=== PATIENT | male | born 1955 | race Caucasian/White ===

== ENCOUNTER → 2019-10-17 09:04 | Outpatient (BNVA) | payer OTHER, SELFPAY | PROVIDERS: PCP Nurse Practitioner Family; Referring Provider Nurse Practitioner Family; Visit Provider Specialist | DX: M79.661 Pain in right lower leg (principal); R42 Dizziness and giddiness; M79.662 Pain in left lower leg; R20.0 Anesthesia of skin; R29.90 Unspecified symptoms and signs involving the nervous system | CPT/HCPCS: 95909; 99204 ==

== ENCOUNTER 2020-11-17 03:28 | Emergency (ER) | payer OTHER, SELFPAY ==
[2020-11-17 03:33] VITALS: BP 151/88; PULSE 81; RESP 22; TEMP 36.7; O2SAT 97; BMI 35.3
--- NOTE | 2020-11-17 03:39 | ED_ITS ---
HPI - SOB/Dyspnea General: Chief Complaint: Shortness of Breath/Dyspnea Stated Complaint: trouble breathing Time Seen by Provider: 11/17/20 03:36 Source: patient Mode of arrival: ambulatory Limitations: no limitations History of Present Illness: HPI Narrative: 65-year-old male who has a history of CHF states that he has had increased shortness of breath throughout the night. He states that he is continue to have dyspnea here. He denies any worsening improving factors. He denies any chest pain. He denies any recent long trips. Denies any vomiting or diarrhea. Associated symptoms: Deny abdominal pain, chest pain, fever(s), nausea or vomiting Review of Systems Const: Denies: fever(s), chills, body aches or change in appetite Eyes: Denies: blurry vision or eye discomfort ENMT: Denies: throat pain or dental pain Card: Denies: chest pain Resp: Reports: dyspnea GI: Denies: abdominal pain, nausea, vomiting or diarrhea : Denies: dysuria Musc: Denies: neck pain or back pain Skin/Breast: Denies: rash Neuro: Denies: headache(s) Psych: Denies: depression Teo/Lymph: Denies: easy bruising All/Imm: Denies: urticaria PFSH ED PFSH: Family History Father ALS (amyotrophic lateral sclerosis) Brother ALS (amyotrophic lateral sclerosis) Social History Smoking and tobacco status: never smoked Physical Exam Const: COMMON NORMALS: no acute distress, patient oriented x3 and healthy appearing HENMT: COMMON NORMALS: normocephalic and atraumatic HEAD & SCALP: normocephalic and atraumatic Eye: COMMON NORMALS: Equal, round and reactive pupils present and EOMs intact bilaterally PUPIL: Yes Equal, round and reactive pupils present Neck/C-Spine: COMMON NORMALS: full ROM and supple Chest: COMMONS NORMALS: normal inspection of the chest and normal palpation of entire chest wall Resp: COMMON NORMALS: normal respiratory effort, No retractions, No use of accessory muscles and clear to auscultation bilaterally AUSCULTATION: clear to auscultation bilaterally Cardio: COMMON NORMALS: regular rate, regular rhythm and No murmurs present (Cardio) RATE: regular rate RHYTHM: regular rhythm GI: COMMON NORMALS: Normal to inspection, nondistended, normoactive bowel sounds present, Soft to palpation, non-tender and no masses PALPATION: Yes Soft to palpation Extremity: COMMON NORMALS: normal to inspection and full ROM Neuro: COMMON NORMALS: patient oriented x3, moves all extremities and no focal motor deficits Psych: COMMON NORMALS: mental status grossly normal, Normal thought process present and cooperative THOUGHT PROCESS: Normal thought process present Skin: COMMON NORMALS: no rashes or lesions noted and no wounds GENERAL SKIN EXAM: no rashes or lesions noted Course Vital Signs: Vital signs: Vital Signs Temperature 98.1 F 11/17/20 03:33 Pulse Rate 88 11/17/20 05:19 Respiratory Rate 18 11/17/20 05:19 Blood Pressure 142/96 11/17/20 05:19 Pulse Oximetry 93 11/17/20 05:19 MDM - SOB/Dyspnea MDM Narrative: Medical decision making narrative: Turner presents with shortness of breath likely due to some anxiety. He feels much improved here after Ativan. Patient's blood work including D-dimer and BNP and troponin are all normal. His x-ray is normal as well. He feels much improved and does not require any oxygen here. I feel he is stable for discharge and is to follow-up his PCP in 2 to 4 days return to the ER if worsening. He understands and agrees to plan. Lab Data: Labs: Lab Results 11/17/20 11/17/20 11/17/20 Range/Units 03:47 03:47 03:47 WBC 8.7 (4.0-10.0) 10^3/ uL RBC 4.64 (4.1-5.3) 10^6/u L Hgb 14.9 (11.7-16.6) g/dL Hct 44.3 (42.0-52.0) % MCV 95.5 H (80-94) fL MCH 32.1 (28.0-34.0) pg MCHC 33.6 (30.0-36.0) g/dL RDW 11.9 L (12.1-15.1) % Plt Count 242 (130-400) 10^3/c mm MPV 10.3 (7.4-10.4) fL Neut % (Auto) 64.2 % Lymph % (Auto) 26.1 % [place] % (Auto) 6.9 % Eos % (Auto) 1.8 % Baso % (Auto) 0.7 % Neut # (Auto) 5.60 (1.8-7.7) 10^3/u L Lymph # (Auto) 2.3 (0.8-4.8) 10^3/u L [place] # (Auto) 0.6 (0.2-0.9) 10^3/u L Eos # (Auto) 0.2 (0.0-0.8) 10^3/u L Baso # (Auto) 0.1 (0.0-0.1) 10^3/u L Nucleated RBC % (a uto) 0 % Nucleated RBCs # 0.0 /100WBC D-Dimer 0.47 (0-0.59) ug/mIFE U Sodium 137 (136-145) mmol/L Potassium 3.9 (3.5-5.1) mmol/L Chloride 98 (98-107) mmol/L Carbon Dioxide 24 (22-29) mmol/L Anion Gap 18.9 (5-19) BUN 11 (8-23) mg/dL Creatinine 0.9 (0.7-1.2) mg/dL GFR Calculation 84.7 L (90-130) mL/min Glucose 129 H (65-115) mg/dL Calculated Osmolal ity 285 (285-295) mOsm/k g Calcium 9.6 (8.5-10.5) mg/dL Total Bilirubin 0.5 (0.15-1.2) mg/dL AST 24 (0-40) U/L ALT 6 (0-41) U/L Alkaline Phosphata se 120 (40-130) IU/L Troponin T Baselin e (0-15) ng/L NT-Pro-B Natriuret Pep 30 (0-125) pg/mL Total Protein 7.3 (6.6-8.7) g/dL Albumin 4.9 (3.5-5.2) g/dL Globulin 2.4 (1.3-4.6) g/dL 11/17/20 Range/Units 03:47 WBC (4.0-10.0) 10^3/ uL RBC (4.1-5.3) 10^6/u L Hgb (11.7-16.6) g/dL Hct (42.0-52.0) % MCV (80-94) fL MCH (28.0-34.0) pg MCHC (30.0-36.0) g/dL RDW (12.1-15.1) % Plt Count (130-400) 10^3/c mm MPV (7.4-10.4) fL Neut % (Auto) % Lymph % (Auto) % [place] % (Auto) % Eos % (Auto) % Baso % (Auto) % Neut # (Auto) (1.8-7.7) 10^3/u L Lymph # (Auto) (0.8-4.8) 10^3/u L [place] # (Auto) (0.2-0.9) 10^3/u L Eos # (Auto) (0.0-0.8) 10^3/u L Baso # (Auto) (0.0-0.1) 10^3/u L Nucleated RBC % (a uto) % Nucleated RBCs # /100WBC D-Dimer (0-0.59) ug/mIFE U Sodium (136-145) mmol/L Potassium (3.5-5.1) mmol/L Chloride (98-107) mmol/L Carbon Dioxide (22-29) mmol/L Anion Gap (5-19) BUN (8-23) mg/dL Creatinine (0.7-1.2) mg/dL GFR Calculation (90-130) mL/min Glucose (65-115) mg/dL Calculated Osmolal ity (285-295) mOsm/k g Calcium (8.5-10.5) mg/dL Total Bilirubin (0.15-1.2) mg/dL AST (0-40) U/L ALT (0-41) U/L Alkaline Phosphata se (40-130) IU/L Troponin T Baselin e 13 (0-15) ng/L NT-Pro-B Natriuret Pep (0-125) pg/mL Total Protein (6.6-8.7) g/dL Albumin (3.5-5.2) g/dL Globulin (1.3-4.6) g/dL Imaging Data^: CXR: Attestation: I personally reviewed and interpreted this imaging study as follows: My impression: no acute abnormality EKG Data^: EKG 1: Attestation: I personally reviewed and interpreted this EKG as follows: EKG Interpretation Date: 11/17/20 EKG interpretation time: 03:40 Interpretation: Normal sinus rhythm heart rate [address] or T wave normalities QRS 97 QTc 382 Discharge Plan Discharge Patient Disposition: Home Clinical Impression: Shortness of breath Condition: Stable Prescriptions: No Action carbidopa-levodopa 25-100 mg tablet 2 tab PO .HS RF: 0 cholecalciferol (vitamin D3) 2,000 unit tablet 2,000 unit PO DAILY RF: 0 pioglitazone 45 mg tablet 45 mg PO DAILY RF: 0 pregabalin 200 mg capsule 200 mg PO DAILY RF: 0 trazodone 100 mg tablet 100 mg PO DAILY RF: 0 potassium chloride 20 mEq tablet extended release 20 meq PO DAILY RF: 0 omeprazole 20 mg capsule,delayed release(DR/EC) 20 mg PO QID RF: 0 lisinopril 10 mg tablet 15 mg PO DAILY RF: 0 meclizine 25 mg tablet 25 mg PO TID RF: 0 cyanocobalamin (vitamin B-12) 1,000 mcg capsule 1,000 mcg PO DAILY RF: 0 atorvastatin 80 mg tablet 40 mg PO DAILY RF: 0 metformin 1,000 mg tablet 1,000 mg PO BID RF: 0 furosemide 20 mg tablet 20 mg PO TID RF: 0 magnesium oxide 400 mg magnesium tablet 400 mg PO DAILY RF: 0 carbamazepine 200 mg tablet 200 mg PO BID RF: 0 Discharge Orders: Discharge ED (Routine); Ordered 11/17/20 Ordered By: Sha Kaufman Referrals: Elli Aponte APRN-BC [Primary Care Provider] - 1-3 days Discharge Diet: Advance as tolerated Discharge Activity: Resume usual activity Patient Instructions: Dyspnea (ED) Coding Level of Care Code ED Heavy Equipment Operator for Chg Fwd Exam Comprehensive
--- NOTE | 2020-11-17 03:39 | ECG_ITS ---
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 Measurements Intervals [place] Rate: 82 P: -12 CO: 134 QRS: -50 QRSD: 97 T: 47 QT: 344 QTc: 402 Interpretive Statements SINUS RHYTHM LEFT AXIS DEVIATION [QRS AXIS < -30] LOW QRS VOLTAGE IN PRECORDIAL LEADS [QRS DEFLECTION < 1.0 mV IN CHEST LEADS] POSSIBLE ANTERIOR MYOCARDIAL INFARCTION , OF INDETERMINATE AGE [30 ms Q WAVE IN V3/V4, OR R < 0.2 mV IN V4] No previous ECG available for comparison Electronically Signed On 11-17-2020 23:50:40 SAP ARCHITECT by Shankar Barajas M.D. [email or web address] [email or web address] hospitalFleetCor Technologieschillicothe va [facility] center.[employer]/store/NU/[id number] f
--- NOTE | 2020-11-17 03:39 | XRR_ITS ---
PROCEDURE INFORMATION: Exam: XR Chest Exam date and time: 11/17/2020 3:59 AM Age: 65 years old Clinical indication: Patient HX: Increased shortness of breath; Additional info: Cp TECHNIQUE: Imaging protocol: XR of the chest Views: 1 view. COMPARISON: No relevant prior studies available. FINDINGS: Lungs: Unremarkable. No consolidation. Pleural spaces: Unremarkable. No pleural effusion. No pneumothorax. Heart/Mediastinum: Unremarkable. No cardiomegaly. Bones/joints: Unremarkable. XR/XR chest 1V portable [id number] IMPRESSION: No acute findings.
[2020-11-17 03:50] VITALS: BP 151/88; PULSE 88; RESP 24; O2SAT 95
[2020-11-17 03:54] LABS: Basophils # 0.1 10^3/uL (0.0-0.1); Basophils % 0.7 %; Eosinophils # 0.2 10^3/uL (0.0-0.8); Eosinophils % 1.8 %; Hematocrit 44.3 % (42.0-52.0); Hemoglobin 14.9 g/dL (11.7-16.6); Lymphocytes # 2.3 10^3/uL (0.8-4.8); Lymphocytes % 26.1 %; Mean Corpuscular HGB Conc 33.6 g/dL (30.0-36.0); Mean Corpuscular Hemoglobin 32.1 pg (28.0-34.0); Mean Corpuscular Volume 95.5 fL (80-94); Mean Platelet Volume 10.3 fL (7.4-10.4); Monocytes # 0.6 10^3/uL (0.2-0.9); Monocytes % 6.9 %; Neutrophils % 64.2 %; Nucleated Red Blood Cells % 0 %; Platelet Count 242 10^3/cmm (130-400); Red Blood Count 4.64 10^6/uL (4.1-5.3); Red Cell Distribution Width 11.9 % (12.1-15.1); White Blood Count 8.7 10^3/uL (4.0-10.0)
--- NOTE | 2020-11-17 04:04 | PC.NURSE ---
pt states complaint of unable to catch my breath . Pt found with increased RR of 26-30. Coaching techniques used. Pt RR diwn to 12-18 per min. Pt states he is able to catch his breath. Dr carr
[2020-11-17 04:06] VITALS: BP 143/93; PULSE 82; RESP 16; O2SAT 96
[2020-11-17 04:06] LABS: D Dimer 0.47 ug/mIFEU (0-0.59)
[2020-11-17] MEDS: LORazepam 2 mg/mL INJ 1 mL 0.5 MG IVP (04:11)
[2020-11-17 04:16] LABS: Troponin(5th) Baseline 13 ng/L (0-15)
[2020-11-17 04:33] LABS: Alanine Aminotransferase 6 U/L (0-41); Albumin Level 4.9 g/dL (3.5-5.2); Alkaline Phosphatase 120 IU/L (40-130); Aspartate Amino Transferase 24 U/L (0-40); Blood Urea Nitrogen 11 mg/dL (8-23); Calcium 9.6 mg/dL (8.5-10.5); Carbon Dioxide 24 mmol/L (22-29); Chloride 98 mmol/L (98-107); Globulin 2.4 g/dL (1.3-4.6); Glomerular Filtration Rate 84.7 mL/min (90-130); Glucose 129 mg/dL (65-115); NT Pro B Type Natriuretic Pept 30 pg/mL (0-125); Osmolality Calculated 285 mOsm/kg (285-295); Sodium 137 mmol/L (136-145); Total Bilirubin 0.5 mg/dL (0.15-1.2); Total Protein 7.3 g/dL (6.6-8.7)
[2020-11-17 04:38] LABS: Anion Gap 18.9 (5-19); Potassium 3.9 mmol/L (3.5-5.1)
[2020-11-17 04:56] VITALS: BP 153/93; PULSE 84; RESP 14; O2SAT 94
[2020-11-17 05:19] VITALS: BP 142/96; PULSE 88; RESP 18; O2SAT 93
== END 2020-11-17 05:15 | disposition home or self-care (01) ==
PROVIDERS: Emergency Provider Emergency Medicine; PCP Nurse Practitioner Family
DX: R06.02 Shortness of breath (principal); Z79.84 Long term (current) use of oral hypoglycemic drugs; R07.9 Chest pain, unspecified
CPT/HCPCS: 71045; 80053; 83880; 84484; 85025; 85378; 93005; 96374; 99284; J2060

== ENCOUNTER 2020-11-18 20:27 | Observation (INO) | payer OTHER, SELFPAY ==
--- NOTE | 2020-11-18 20:29 | XR_ITS ---
WS: [id number] Portable AP upright chest, 11/18/2020 Clinical Data: sob Comparison: Chest, 11/17/2020. Findings: No nodules, masses or effusions are seen. The heart is normal. The pulmonary vascularity is not increased. No pneumonia or pneumothorax is seen. The aortic arch and descending aorta are tortuo us. XR/XR chest 1V portable [id number] Impression: Atherosclerosis.
[2020-11-18 20:35] VITALS: BP 90/59; PULSE 78; RESP 14; TEMP 36.7; O2SAT 96; BMI 35.3
--- NOTE | 2020-11-18 20:49 | ECG_ITS ---
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 Measurements Intervals [place] Rate: 72 P: 54 DE: 188 QRS: -53 QRSD: 109 T: 59 QT: 379 QTc: 418 Interpretive Statements SINUS RHYTHM LEFT AXIS DEVIATION [QRS AXIS < -30] LOW QRS VOLTAGE IN PRECORDIAL LEADS [QRS DEFLECTION < 1.0 mV IN CHEST LEADS] INCOMPLETE RIGHT BUNDLE BRANCH BLOCK [90+ ms QRS DURATION, TERMINAL R IN V1/V2, 40+ ms S IN I/aVL/V4/V5/V6] Compared to ECG 11/17/2020 03:40:29 Incomplete right bundle-branch block now present Myocardial infarct finding still present Electronically Signed On 11-19-2020 17:15:46 BIOFUELS PRODUCTION ASSOCIATE by Antonino Powell M.D. [email or web address]/store/[id number]
--- NOTE | 2020-11-18 20:51 | CTR_ITS ---
PROCEDURE INFORMATION: Exam: CT Angiography Chest With Contrast Exam date and time: 11/18/2020 9:05 PM Age: 65 years old Clinical indication: Vomiting; Abdominal pain; Localized; Shortness of breath; Other: None; Prior surgery; Surgery type: Appy; Patient HX: SOB with n/v and right sided abd pain TECHNIQUE: Imaging protocol: Computed tomographic angiography of the chest with contrast. 3D rendering (Not supervised by radiologist): MIP and/or 3D reconstructed images were created by the technologist. Radiation optimization: All CT scans at this facility use at least one of these dose optimization techniques: automated exposure control; mA and/or kV adjustment per patient size (includes targeted exams where dose is matched to clinical indication); or iterative reconstruction. Contrast material: OMNI 350; Contrast volume: 95 ml; Contrast route: INTRAVENOUS (IV); COMPARISON: CR XR chest 1V portable [id number] 11/18/2020 8:38 PM RADIATION DOSE METRICS: Total DLP (mGy-cm): 2049.92 FINDINGS: Pulmonary arteries: No filling defects in the pulmonary arteries to suggest pulmonary embolism. Aorta: Mild atherosclerotic changes in the visualized arteries. No evidence for aortic aneurysm. Evaluation for aortic dissection is limited due to the phase of contrast-enhancement. Lungs: Tracheobronchial structures are patent. Dependent atelectasis in the lungs bilaterally. No pulmonary parenchymal nodules or masses. Pleural spaces: No pneumothorax. No pleural effusion. Heart: Mild enlargement of the heart. Mild atherosclerotic calcification in the coronary arteries. Mediastinal space: No mediastinal hematoma. No pneumomediastinum. Lymph nodes: No lymphadenopathy. Bones/joints: Multilevel degenerative changes of varying severity in the visualized spine. Soft tissues: No acute abnormality in the extrathoracic soft tissues. IMPRESSION: 1. No evidence for pulmonary embolism. 2. Dependent atelectasis in the lungs bilaterally. 3. Incidental/nonacute findings are listed in the report. PROCEDURE INFORMATION: Exam: CT Abdomen And Pelvis With Contrast Exam date and time: 11/18/2020 9:05 PM Age: 65 years old Clinical indication: Vomiting; Abdominal pain; Localized; Shortness of breath; Other: None; Prior surgery; Surgery type: Appy; Patient HX: SOB with n/v and right sided abd pain TECHNIQUE: Imaging protocol: Computed tomography of the abdomen and pelvis with contrast. Radiation optimization: All CT scans at this facility use at least one of these dose optimization techniques: automated exposure control; mA and/or kV adjustment per patient size (includes targeted exams where dose is matched to clinical indication); or iterative reconstruction. Contrast material: OMNI 350; Contrast volume: 95 ml; Contrast route: INTRAVENOUS (IV); COMPARISON: No relevant prior studies available. RADIATION DOSE METRICS: Total DLP (mGy-cm): 2050.92 FINDINGS: Liver: The liver is unremarkable. Gallbladder and bile ducts: The gallbladder is unremarkable. No biliary ductal dilatation. Pancreas: The pancreas is unremarkable. No pancreatic ductal dilatation. Spleen: The spleen is unremarkable. Adrenal glands: The right and left adrenal glands are unremarkable. Kidneys and ureters: Subcentimeter hypodense focus in the right kidney that is too small to characterize, however likely represents a small cyst. Simple cyst in the left kidney measuring 4.4 cm. The right and left ureters are unremarkable. Stomach and bowel: No obstruction. No mucosal thickening. Appendix: The appendix is visualized and is unremarkable. No evidence of appendicitis. Intraperitoneal space: No free intraperitoneal air. No ascites. No loculated fluid collections to suggest an abscess. Vasculature: Mild atherosclerotic changes in the visualized arteries. No evidence for aortic aneurysm or aortic dissection. Hepatic veins, portal veins, splenic vein, and SMV are patent. Lymph nodes: No lymphadenopathy. Urinary bladder: Marked bladder distension. Mild bladder wall thickening with a trabeculated appearance of the bladder wall, suggesting sequela of chronic outlet obstruction. Reproductive: Unremarkable as visualized. Bones/joints: Moderate degenerative changes at both the right and left hips. Multilevel degenerative changes of varying severity in the visualized spine. Moderate spinal canal stenosis at L2-L3, L3-L4, and L5-S1. Moderate to severe spinal canal stenosis at L4-L5. Multilevel foraminal stenosis of varying severity in the lumbar spine. Soft tissues: No acute abnormality in the extra-abdominal soft tissues. CT/CT angio chest w abd pel w con IMPRESSION: 1. Marked bladder distension. 2. Mild bladder wall thickening with a trabeculated appearance of the bladder wall, suggesting sequela of chronic outlet obstruction. 3. Multilevel degenerative changes of varying severity in the visualized spine. 4. Moderate spinal canal stenosis at L2-L3, L3-L4, and L5-S1. Moderate to severe spinal canal stenosis at L4-L5. Multilevel foraminal stenosis of varying severity in the lumbar spine. 5. Incidental/nonacute findings are listed in the report. COMMENTS: Consistent with the [place] [employer]'s Incidental Findings Committee white paper (J Am Jazz Radiol 2018): Any incidental renal lesion less than 1 cm or classified as too small to characterize, or any incidental cystic renal lesion characterized as simple-appearing, is likely benign. No follow-up imaging is recommended for these lesions per consensus recommendations based on imaging criteria. Radiation Dose CTDIVOL = (mGy): DLP = 2050.92~2050.92 (mGy-cm)
--- NOTE | 2020-11-18 20:54 | ED_ITS ---
HPI - SOB/Dyspnea General: Chief Complaint: Abdominal Pain Stated Complaint: DIFFICULTY BREATHING Time Seen by Provider: 11/18/20 20:41 Source: patient Mode of arrival: ambulatory Limitations: no limitations History of Present Illness: HPI Narrative: 65-year-old male who was seen here 2 days ago for shortness of breath. He states he has had worsening dyspnea today with right sided chest and abdominal pain. Patient had a full work-up today including a negative x-ray and a negative D-dimer. Patient was not hypoxic today but has had hypoxia here with walking. When he checked and his pulse ox is 96% but dropped to 82% walking to the room. He is not on oxygen at home. He does have a history of CHF. He denies any vomiting but has had some nausea. He states his dyspnea is worse with exertion. Associated symptoms: Reports abdominal pain; Deny chest pain or fever(s) Review of Systems Const: Denies: fever(s), chills, body aches or change in appetite Eyes: Denies: blurry vision or eye discomfort ENMT: Denies: throat pain or dental pain Card: Denies: chest pain Resp: Reports: dyspnea GI: Reports: abdominal pain : Denies: dysuria Musc: Denies: neck pain or back pain Skin/Breast: Denies: rash Neuro: Denies: headache(s) Psych: Denies: depression Teo/Lymph: Denies: easy bruising All/Imm: Denies: urticaria PFSH ED PFSH: Family History Father ALS (amyotrophic lateral sclerosis) Brother ALS (amyotrophic lateral sclerosis) Social History Smoking and tobacco status: never smoked Physical Exam Const: COMMON NORMALS: no acute distress, patient oriented x3 and healthy appearing HENMT: COMMON NORMALS: normocephalic and atraumatic HEAD & SCALP: normocephalic and atraumatic Eye: COMMON NORMALS: Equal, round and reactive pupils present and EOMs intact bilaterally PUPIL: Yes Equal, round and reactive pupils present Neck/C-Spine: COMMON NORMALS: full ROM and supple Chest: COMMONS NORMALS: normal inspection of the chest and normal palpation of entire chest wall Resp: COMMON NORMALS: normal respiratory effort, No retractions, No use of accessory muscles and clear to auscultation bilaterally AUSCULTATION: clear to auscultation bilaterally Cardio: COMMON NORMALS: regular rate, regular rhythm and No murmurs present (Cardio) RATE: regular rate RHYTHM: regular rhythm GI: COMMON NORMALS: Normal to inspection, nondistended, normoactive bowel sounds present, Soft to palpation, non-tender and no masses PALPATION: Yes Soft to palpation Extremity: COMMON NORMALS: normal to inspection and full ROM Neuro: COMMON NORMALS: patient oriented x3, moves all extremities and no focal motor deficits Psych: COMMON NORMALS: mental status grossly normal, Normal thought process present and cooperative THOUGHT PROCESS: Normal thought process present Skin: COMMON NORMALS: no rashes or lesions noted and no wounds GENERAL SKIN EXAM: no rashes or lesions noted Course Vital Signs: Vital signs: Vital Signs Temperature 98.1 F 11/18/20 20:35 Pulse Rate 85 11/18/20 23:00 Respiratory Rate 16 11/18/20 23:00 Blood Pressure 105/66 11/18/20 23:00 Pulse Oximetry 92 11/18/20 23:00 MDM - SOB/Dyspnea MDM Narrative: Medical decision making narrative: Patient presents here with dyspnea. He is requiring 2 L of oxygen here. Patient's blood work and CT are all normal. I spoke to the hospitalist will admit for observation for his dyspnea. He has no signs of cardiac cause or pulmonary embolism. Lab Data: Labs: Lab Results 11/18/20 11/18/20 11/18/20 Range/Units 20:30 20:55 20:55 WBC 7.9 (4.0-10.0) 10^3/ uL RBC 4.34 (4.1-5.3) 10^6/u L Hgb 14.1 (11.7-16.6) g/dL Hct 40.2 L (42.0-52.0) % MCV 92.6 (80-94) fL MCH 32.5 (28.0-34.0) pg MCHC 35.1 (30.0-36.0) g/dL RDW 11.8 L (12.1-15.1) % Plt Count 243 (130-400) 10^3/c mm MPV 9.7 (7.4-10.4) fL Neut % (Auto) 62.5 % Lymph % (Auto) 29.0 % [place] % (Auto) 6.7 % Eos % (Auto) 1.1 % Baso % (Auto) 0.4 % Neut # (Auto) 4.95 (1.8-7.7) 10^3/u L Lymph # (Auto) 2.3 (0.8-4.8) 10^3/u L [place] # (Auto) 0.5 (0.2-0.9) 10^3/u L Eos # (Auto) 0.1 (0.0-0.8) 10^3/u L Baso # (Auto) 0.0 (0.0-0.1) 10^3/u L Nucleated RBC % (a uto) 0 % Nucleated RBCs # 0.0 /100WBC Specimen Type Sample Site ABG pH (7.35-7.45) ABG pCO2 (35-45) mmHg ABG pO2 (80.0-100.0) mmH g ABG HCO3 (22-26) mmol/L ABG Base Excess (-2.0-2.0) mmol/ L Timmy Test Hematocrit (42-52) % O2 Delivery Device O2 Liters/Min % Public Address System Installer ID Sodium 135 L (136-145) mmol/L Potassium 3.9 (3.5-5.1) mmol/L Chloride 97 L (98-107) mmol/L Carbon Dioxide 25 (22-29) mmol/L Anion Gap 16.9 (5-19) BUN 12 (8-23) mg/dL Creatinine 0.9 (0.7-1.2) mg/dL GFR Calculation 84.7 L (90-130) mL/min Glucose 164 H (65-115) mg/dL Calculated Osmolal ity 283 L (285-295) mOsm/k g Lactate 1.7 (0.5-2.2) mmol/L Calcium 9.0 (8.5-10.5) mg/dL Total Bilirubin 0.5 (0.15-1.2) mg/dL AST 18 (0-40) U/L ALT < 5 (0-41) U/L Alkaline Phosphata se 101 (40-130) IU/L Troponin T Baselin e (0-15) ng/L NT-Pro-B Natriuret Pep 23 (0-125) pg/mL Total Protein 6.7 (6.6-8.7) g/dL Albumin 4.6 (3.5-5.2) g/dL Globulin 2.1 (1.3-4.6) g/dL SARS-CoV-2 Ag (Rap id) (Negative) 11/18/20 11/18/20 11/18/20 Range/Units 20:55 21:17 22:02 WBC (4.0-10.0) 10^3/ uL RBC (4.1-5.3) 10^6/u L Hgb (11.7-16.6) g/dL Hct (42.0-52.0) % MCV (80-94) fL MCH (28.0-34.0) pg MCHC (30.0-36.0) g/dL RDW (12.1-15.1) % Plt Count (130-400) 10^3/c mm MPV (7.4-10.4) fL Neut % (Auto) % Lymph % (Auto) % [place] % (Auto) % Eos % (Auto) % Baso % (Auto) % Neut # (Auto) (1.8-7.7) 10^3/u L Lymph # (Auto) (0.8-4.8) 10^3/u L [place] # (Auto) (0.2-0.9) 10^3/u L Eos # (Auto) (0.0-0.8) 10^3/u L Baso # (Auto) (0.0-0.1) 10^3/u L Nucleated RBC % (a uto) % Nucleated RBCs # /100WBC Specimen Type Arterial Sample Site Brachial, left ABG pH 7.41 (7.35-7.45) ABG pCO2 42.5 (35-45) mmHg ABG pO2 105.0 H (80.0-100.0) mmH g ABG HCO3 26.6 H (22-26) mmol/L ABG Base Excess 1.6 (-2.0-2.0) mmol/ L Timmy Test N/a Hematocrit 41.0 L (42-52) % O2 Delivery Device Nc O2 Liters/Min 2.5 % Public Address System Installer ID Harkr Sodium (136-145) mmol/L Potassium (3.5-5.1) mmol/L Chloride (98-107) mmol/L Carbon Dioxide (22-29) mmol/L Anion Gap (5-19) BUN (8-23) mg/dL Creatinine (0.7-1.2) mg/dL GFR Calculation (90-130) mL/min Glucose (65-115) mg/dL Calculated Osmolal ity (285-295) mOsm/k g Lactate (0.5-2.2) mmol/L Calcium (8.5-10.5) mg/dL Total Bilirubin (0.15-1.2) mg/dL AST (0-40) U/L ALT (0-41) U/L Alkaline Phosphata se (40-130) IU/L Troponin T Baselin e 11 (0-15) ng/L NT-Pro-B Natriuret Pep (0-125) pg/mL Total Protein (6.6-8.7) g/dL Albumin (3.5-5.2) g/dL Globulin (1.3-4.6) g/dL SARS-CoV-2 Ag (Rap id) Negative (Negative) Imaging Data^: CXR: Attestation: I personally reviewed and interpreted this imaging study as follows: My impression: no acute abnormality CT Chest: Attestation: I personally reviewed and interpreted this imaging study as follows: Radiologist's impression: [address] [address] [address] Scan Report Signed Patient: Turner Steven Unit #: [id number] : 1955 Age/Sex: 65 / M ADM Date: 11/18/20 Loc: ER Room/Bed: Attending Dr: Ordering Provider/Ordering MD: Sha Kaufman MD Date of Service: 11/18/20 Procedure(s): CT angio chest w abd pel w con Accession Number(s): [id number] Report Number: [id number] PROCEDURE INFORMATION: Exam: CT Angiography Chest With Contrast Exam date and time: 11/18/2020 9:05 PM Age: 65 years old Clinical indication: Vomiting; Abdominal pain; Localized; Shortness of breath; Other: None; Prior surgery; Surgery type: Appy; Patient HX: SOB with n/v and right sided abd pain TECHNIQUE: Imaging protocol: Computed tomographic angiography of the chest with contrast. 3D rendering (Not supervised by radiologist): MIP and/or 3D reconstructed images were created by the technologist. Radiation optimization: All CT scans at this facility use at least one of these dose optimization techniques: automated exposure control; mA and/or kV adjustment per patient size (includes targeted exams where dose is matched to clinical indication); or iterative reconstruction. Contrast material: OMNI 350; Contrast volume: 95 ml; Contrast route: INTRAVENOUS (IV); COMPARISON: CR XR chest 1V portable [id number] 11/18/2020 8:38 PM RADIATION DOSE METRICS: Total DLP (mGy-cm): 2049.92 FINDINGS: Pulmonary arteries: No filling defects in the pulmonary arteries to suggest pulmonary embolism. Aorta: Mild atherosclerotic changes in the visualized arteries. No evidence for aortic aneurysm. Evaluation for aortic dissection is limited due to the phase of contrast-enhancement. Lungs: Tracheobronchial structures are patent. Dependent atelectasis in the lungs bilaterally. No pulmonary parenchymal nodules or masses. Pleural spaces: No pneumothorax. No pleural effusion. Heart: Mild enlargement of the heart. Mild atherosclerotic calcification in the coronary arteries. Mediastinal space: No mediastinal hematoma. No pneumomediastinum. Lymph nodes: No lymphadenopathy. Bones/joints: Multilevel degenerative changes of varying severity in the visualized spine. Soft tissues: No acute abnormality in the extrathoracic soft tissues. IMPRESSION: 1. No evidence for pulmonary embolism. 2. Dependent atelectasis in the lungs bilaterally. 3. Incidental/nonacute findings are listed in the report. PROCEDURE INFORMATION: Exam: CT Abdomen And Pelvis With Contrast Exam date and time: 11/18/2020 9:05 PM Age: 65 years old Clinical indication: Vomiting; Abdominal pain; Localized; Shortness of breath; Other: None; Prior surgery; Surgery type: Appy; Patient HX: SOB with n/v and right sided abd pain TECHNIQUE: Imaging protocol: Computed tomography of the abdomen and pelvis with contrast. Radiation optimization: All CT scans at this facility use at least one of these dose optimization techniques: automated exposure control; mA and/or kV adjustment per patient size (includes targeted exams where dose is matched to clinical indication); or iterative reconstruction. Contrast material: OMNI 350; Contrast volume: 95 ml; Contrast route: INTRAVENOUS (IV); COMPARISON: No relevant prior studies available. RADIATION DOSE METRICS: Total DLP (mGy-cm): 0.92 FINDINGS: Liver: The liver is unremarkable. Gallbladder and bile ducts: The gallbladder is unremarkable. No biliary ductal dilatation. Pancreas: The pancreas is unremarkable. No pancreatic ductal dilatation. Spleen: The spleen is unremarkable. Adrenal glands: The right and left adrenal glands are unremarkable. Kidneys and ureters: Subcentimeter hypodense focus in the right kidney that is too small to characterize, however likely represents a small cyst. Simple cyst in the left kidney measuring 4.4 cm. The right and left ureters are unremarkable. Stomach and bowel: No obstruction. No mucosal thickening. Appendix: The appendix is visualized and is unremarkable. No evidence of appendicitis. Intraperitoneal space: No free intraperitoneal air. No ascites. No loculated fluid collections to suggest an abscess. Vasculature: Mild atherosclerotic changes in the visualized arteries. No evidence for aortic aneurysm or aortic dissection. Hepatic veins, portal veins, splenic vein, and SMV are patent. Lymph nodes: No lymphadenopathy. Urinary bladder: Marked bladder distension. Mild bladder wall thickening with a trabeculated appearance of the bladder wall, suggesting sequela of chronic outlet obstruction. Reproductive: Unremarkable as visualized. Bones/joints: Moderate degenerative changes at both the right and left hips. Multilevel degenerative changes of varying severity in the visualized spine. Moderate spinal canal stenosis at L2-L3, L3-L4, and L5-S1. Moderate to severe spinal canal stenosis at L4-L5. Multilevel foraminal stenosis of varying severity in the lumbar spine. Soft tissues: No acute abnormality in the extra-abdominal soft tissues. CT/CT angio chest w abd pel w con IMPRESSION: 1. Marked bladder distension. 2. Mild bladder wall thickening with a trabeculated appearance of the bladder wall, suggesting sequela of chronic outlet obstruction. 3. Multilevel degenerative changes of varying severity in the visualized spine. 4. Moderate spinal canal stenosis at L2-L3, L3-L4, and L5-S1. Moderate to severe spinal canal stenosis at L4-L5. Multilevel foraminal stenosis of varying severity in the lumbar spine. 5. Incidental/nonacute findings are listed in the report. EKG Data^: EKG 1: Attestation: I personally reviewed and interpreted this EKG as follows: EKG Interpretation Date: 11/18/20 EKG interpretation time: 21:26 Interpretation: nsr hr [address] or t wave abnormalities qrs 109 qtc 404 Discharge Plan Discharge Condition: Good Prescriptions: No Action carbidopa-levodopa 25-100 mg tablet 2 tab PO .HS RF: 0 cholecalciferol (vitamin D3) 2,000 unit tablet 2,000 unit PO DAILY RF: 0 pioglitazone 45 mg tablet 45 mg PO DAILY RF: 0 pregabalin 200 mg capsule 200 mg PO DAILY RF: 0 trazodone 100 mg tablet 100 mg PO DAILY RF: 0 potassium chloride 20 mEq tablet extended release 20 meq PO DAILY RF: 0 omeprazole 20 mg capsule,delayed release(DR/EC) 20 mg PO QID RF: 0 lisinopril 10 mg tablet 15 mg PO DAILY RF: 0 meclizine 25 mg tablet 25 mg PO TID RF: 0 cyanocobalamin (vitamin B-12) 1,000 mcg capsule 1,000 mcg PO DAILY RF: 0 atorvastatin 80 mg tablet 40 mg PO DAILY RF: 0 metformin 1,000 mg tablet 1,000 mg PO BID RF: 0 furosemide 20 mg tablet 20 mg PO TID RF: 0 magnesium oxide 400 mg magnesium tablet 400 mg PO DAILY RF: 0 carbamazepine 200 mg tablet 200 mg PO BID RF: 0 Coding Level of Care Code ED Wire Weaver for Chg Fwd Exam Comprehensive
[2020-11-18 21:10] LABS: Basophils % 0.4 %; Eosinophils # 0.1 10^3/uL (0.0-0.8); Eosinophils % 1.1 %; Hematocrit 40.2 % (42.0-52.0); Hemoglobin 14.1 g/dL (11.7-16.6); Lymphocytes # 2.3 10^3/uL (0.8-4.8); Mean Corpuscular HGB Conc 35.1 g/dL (30.0-36.0); Mean Corpuscular Hemoglobin 32.5 pg (28.0-34.0); Mean Corpuscular Volume 92.6 fL (80-94); Mean Platelet Volume 9.7 fL (7.4-10.4); Monocytes # 0.5 10^3/uL (0.2-0.9); Monocytes % 6.7 %; Neutrophils # 4.95 10^3/uL (1.8-7.7); Neutrophils % 62.5 %; Nucleated Red Blood Cells % 0 %; Platelet Count 243 10^3/cmm (130-400); Red Blood Count 4.34 10^6/uL (4.1-5.3); Red Cell Distribution Width 11.8 % (12.1-15.1); White Blood Count 7.9 10^3/uL (4.0-10.0)
[2020-11-18] MEDS: iohexol 350 mg/mL 100 mL Btl IV (21:15)
[2020-11-18 21:27] LABS: ABG PCO2 42.5 mmHg (35-45); ABG PH Result 7.41 (7.35-7.45); Base Excess ABG 1.6 mmol/L (-2.0-2.0); Blood Gas LPM 2.5 %; Blood Gas Operator Identificat HARKR; Blood Gas Sample Site Brachial, left; Blood Gas Sample Type Arterial; HCO3 ABG 26.6 mmol/L (22-26); Oxygen Device NC
[2020-11-18 21:31] LABS: Troponin(5th) Baseline 11 ng/L (0-15)
[2020-11-18 21:34] VITALS: PULSE 76; O2SAT 96
[2020-11-18 21:39] LABS: Alanine Aminotransferase < 5 U/L (0-41); Albumin Level 4.6 g/dL (3.5-5.2); Alkaline Phosphatase 101 IU/L (40-130); Anion Gap 16.9 (5-19); Aspartate Amino Transferase 18 U/L (0-40); Blood Urea Nitrogen 12 mg/dL (8-23); Carbon Dioxide 25 mmol/L (22-29); Chloride 97 mmol/L (98-107); Globulin 2.1 g/dL (1.3-4.6); Glomerular Filtration Rate 84.7 mL/min (90-130); Glucose 164 mg/dL (65-115); NT Pro B Type Natriuretic Pept 23 pg/mL (0-125); Osmolality Calculated 283 mOsm/kg (285-295); Potassium 3.9 mmol/L (3.5-5.1); Sodium 135 mmol/L (136-145); Total Bilirubin 0.5 mg/dL (0.15-1.2); Total Protein 6.7 g/dL (6.6-8.7)
[2020-11-18 22:00] VITALS: PULSE 75; O2SAT 94
[2020-11-18 22:25] LABS: SARS Covid-2 Antigen Negative (Negative)
[2020-11-18 22:30] VITALS: PULSE 81; O2SAT 92
[2020-11-18 22:32] LABS: Lactate (Lactic Acid level) 1.7 mmol/L (0.5-2.2)
--- NOTE | 2020-11-18 22:49 | ECG_ITS ---
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 Measurements Intervals [place] Rate: 81 P: 19 SC: 149 QRS: -54 QRSD: 109 T: 57 QT: 393 QTc: 459 Interpretive Statements SINUS RHYTHM LOW QRS VOLTAGE IN PRECORDIAL LEADS [QRS DEFLECTION < 1.0 mV IN CHEST LEADS] LEFT ANTERIOR FASCICULAR BLOCK [QRS AXIS <= -45, QR IN I, RS IN II] Compared to ECG 11/18/2020 21:26:08 Left anterior fascicular block now present Left-axis deviation no longer present Incomplete right bundle-branch block no longer present Myocardial infarct finding still present Electronically Signed On 11-19-2020 17:28:15 DIGITAL ADVISOR by Antonino Powell M.D. [id number]
[2020-11-18 23:00] VITALS: BP 105/66; PULSE 85; RESP 16; O2SAT 92
[2020-11-18 23:31] LABS: Troponin 5 2HR 11.41 ng/L (0-15); Troponin 5 2HR Delta 0.41 ABS# (0-10)
[2020-11-19] VITALS (10 sets, daily range): BP systolic 100–123; BP diastolic 62–82; PULSE 75–92; RESP 16–20; TEMP 36.1–37.2; O2SAT 93–100
--- NOTE | 2020-11-19 00:05 | PM.HP ---
Providers/Chief Complaint Admitting Physician: Kishan Burrows MD Primary Care Provider: Jose Henriquez DO Chief Complaint: DIFFICULTY BREATHING History of Present Illness Turner Steven is a 65 year old male with a past medical history of noninsulin-dependent type 2 diabetes mellitus, peripheral neuropathy, hypertension, hyperlipidemia, bilateral lower extremity edema, who presents to [facility] due to a 2 week history of shortness of breath. Patient tells me that this is his second visit to the emergency room for shortness of breath. He tells me for the last 2 weeks he has been having episodes of shortness of breath at rest and with exertion. He also has complains of proximal nocturnal dyspnea. No orthopnea. No chest pain. He does take Lasix 20 mg 3 times daily for bilateral lower extremity edema, but he denies a history of heart failure. No cardiovascular history. Denies any fevers or chills, no loss of taste, no loss of smell, no known exposure to COVID-19. No history of smoking. No history of COPD. No history of DVTs or PEs. No recent history of surgeries. He tells me that he gets short of breath with minimal exertion which is quite unusual for him. Here in the emergency room, he was doing fine on room air, but when he got up to use the bathroom his oxygen saturations dropped into the low 80s requiring about 2 L nasal cannula. Review of Systems Const: Denies: fever(s), chills, fatigue or malaise Eyes: Denies: change in vision or blurry vision ENMT: Denies: nasal congestion Card: Denies: chest pain, palpitations, irregular heart rhythm, edema, lightheadedness or pre-syncope Resp: Reports: dyspnea; Denies: productive cough, non-productive cough or wheezing GI: Denies: abdominal pain, nausea, vomiting, hematemesis, diarrhea, constipation, hematochezia or melena : Denies: flank pain, difficulty urinating, dysuria or urinary frequency Musc: Denies: neck pain or back pain Skin/Breast: Denies: rash Neuro: Denies: headache(s), dizziness or vertigo Psych: Denies: anxiety or depression Endo: Denies: polyuria or polydipsia Medications/Allergies Home Medications Medication Instructions Recorded Confirmed Last Taken Type atorvastatin 80 mg tablet 40 mg PO DAILY tab 10/17/19 10/17/19 Unknown History carbamazepine 200 mg tablet 200 mg PO BID 10/17/19 10/17/19 Unknown History carbidopa 25 mg-levodopa 100 mg 2 tab PO .HS tab 10/17/19 10/17/19 Unknown History tablet cholecalciferol (vitamin D3) 50 2,000 unit PO DAILY 10/17/19 10/17/19 Unknown History mcg (2,000 unit) tablet cyanocobalamin (vitamin B-12) 1,000 mcg PO DAILY 10/17/19 10/17/19 Unknown History 1,000 mcg capsule furosemide 20 mg tablet 20 mg PO TID 10/17/19 10/17/19 Unknown History lisinopril 10 mg tablet 15 mg PO DAILY tab 10/17/19 10/17/19 Unknown History magnesium oxide 400 mg PO DAILY 10/17/19 10/17/19 Unknown History meclizine 25 mg tablet 25 mg PO TID 10/17/19 10/17/19 Unknown History metformin 1,000 mg tablet 1,000 mg PO BID 10/17/19 10/17/19 Unknown History omeprazole 20 mg capsule,delayed 20 mg PO QID cap 10/17/19 10/17/19 Unknown History release pioglitazone 45 mg tablet 45 mg PO DAILY 10/17/19 10/17/19 Unknown History potassium chloride 20 mEq 20 meq PO DAILY 10/17/19 10/17/19 Unknown History tablet,extended release pregabalin 200 mg capsule 200 mg PO DAILY 10/17/19 10/17/19 Unknown History trazodone 100 mg tablet 100 mg PO DAILY 10/17/19 10/17/19 Unknown History Allergies Allergy/AdvReac Type Severity Reaction Status Date / Time Penicillins Allergy Severe Stops Verified 10/17/19 10:06 Breathing PFSH Acute PFSH: Medical History (Updated 11/19/20 @ 00:09 by Kishan Burrows MD) Diabetes GERD (gastroesophageal reflux disease) Hyperlipidemia Hypertension Non-insulin dependent type 2 diabetes mellitus Peripheral neuropathy Restless leg Surgical History (Updated 11/19/20 @ 00:09 by Kishan Burrows MD) History of appendectomy Family History Father ALS (amyotrophic lateral sclerosis) Brother ALS (amyotrophic lateral sclerosis) Social History (Updated 11/19/20 @ 00:09 by Kishan Burrows MD) Smoking and tobacco status: never smoked Alcohol intake: never Substance/Drug Use: never Vitals/I&O/Wt Last Vital Signs Temp 98.1 F 11/18/20 20:35 Pulse 85 11/18/20 23:00 Resp 16 11/18/20 23:00 BP 105/66 11/18/20 23:00 Pulse Ox 92 11/18/20 23:00 Weight last 48 hrs Weight 124.738 kg Physical Exam Const: COMMON NORMALS: no acute distress and patient oriented x3 GENERAL APPEARANCE: cooperative and comfortable HENMT: COMMON NORMALS: normocephalic HEAD & SCALP: normocephalic Eye: COMMON NORMALS: Equal, round and reactive pupils present and EOMs intact bilaterally GENERAL EYE: appearance normal, both eyes and all related structures PUPIL: Yes Equal, round and reactive pupils present Neck/C-Spine: COMMON NORMALS: full ROM, no lymphadenopathy, no JVD and Thyroid normal THYROID: Thyroid normal Lymph: LYMPHATIC: no lymphadenopathy noted Resp: COMMON NORMALS: normal respiratory effort, No retractions, No use of accessory muscles and clear to auscultation bilaterally AUSCULTATION: crackles Cardio: COMMON NORMALS: no JVD, regular rate, regular rhythm, S1 normal heart sound present, S2 normal heart sound present, No gallops present (Cardio), No clicks present (Cardio) and No murmurs present (Cardio) RATE: regular rate RHYTHM: regular rhythm HEART SOUNDS: S1 normal heart sound present and S2 normal heart sound present GI: COMMON NORMALS: Normal to inspection, nondistended, normoactive bowel sounds present, Soft to palpation, non-tender and No hepatosplenomegaly present PALPATION: Yes Soft to palpation and Yes No hepatosplenomegaly present Extremity: COMMON NORMALS: normal to inspection, full ROM and no pedal edema Neuro: COMMON NORMALS: patient oriented x3, CN's II-XII intact bilaterally, moves all extremities and no focal motor deficits Psych: COMMON NORMALS: mental status grossly normal, Normal thought process present and cooperative THOUGHT PROCESS: Normal thought process present Data : 11/18/20 20:55 11/18/20 20:55 A&P Assessment and plan (1) Hypoxia: -Secondary to possible diastolic CHF -CT angiogram of the chest did show bilateral atelectasis, no focal pneumonia, did show some mild pulmonary edema, no pulmonary emboli -BNP 23, baseline troponin 11 -EKG does not show any acute ST-T wave changes, no A. fib events Plan: -We will give a trial of 40mgIV Lasix -Fluid restrictions -Cardiac echo -PT OT -Try to wean oxygen -We will place on doxycycline for antibiotic coverage -Monitor telemetry -Monitor for symptomatology -We will order Covid PCR Status: Acute (2) Non-insulin dependent type 2 diabetes mellitus: Insulin sliding scale Status: Acute (3) Hypertension: Status: Inactive (4) Shortness of breath: Status: Acute Additional A&P Information Right upper quadrant pain, will order a right upper quadrant ultrasound Attestations Medical Necessity Statement*: Patient requires hospitalization, outpatient with observation for hypoxia, shortness of breath, likely CHF exacerbation, likely diastolic Coding Level of Care Code 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
--- NOTE | 2020-11-19 00:58 | US_ITS ---
WS: [id number] ULTRASOUND ABDOMEN LIMITED CLINICAL INFORMATION: ruq pain COMPARISON: None. FINDINGS: Liver Size: Enlarged Craniocaudal length: 18.8 cm. Echogenicity: Normal. Surface nodularity: None. Mass (size and location): None. Bile ducts Intrahepatic ducts: Normal. Common bile duct diameter: 0.4 cm. Gallbladder Normal. Gallstones: None. Gallbladder sludge: None. Gallbladder wall thickening: None. Pericholecystic fluid: None. Sonographic [place] sign: Absent. Pancreas Normal as visualized. Right kidney: Normal. Hydronephrosis: None. Size: 13.6 cm x 7.2 cm x 6.4 cm. Abdominal aorta and IVC Visualized portions are normal. Ascites: None. US/US gall bladder [id number] IMPRESSION: 1. Hepatomegaly. No intrahepatic biliary ductal dilatation. 2. Normal gallbladder. Normal common bile duct. 3. No hydronephrosis in right kidney.
--- NOTE | 2020-11-19 00:58 | USCV_ITS ---
MaurizioTurner Age: 65 Gender: M : 1955 Exam Date: 11/19/2020 06:55 Ordering Phys: Kishan Burrows MD Technologist: Javy Gao [place]am Location[place] [facility] [place]ication: CHEST PAIN BP: 156 / 78 HR: 74 Rhythm: Sinus Technical Quality: Fair MEASUREMENTS (Male / Female) Normal Values 2D ECHO LV Diastolic Diameter PLAX 4.7 cm 4.2 - 5.9 / 3.9 - 5.3 cm LV Systolic Diameter PLAX 2.9 cm IVS Diastolic Thickness 0.9 cm 0.6 - 1.0 / 0.6 - 0.9 cm IVS Systolic Thickness 1.2 cm LVPW Diastolic Thickness 1.2 cm 0.6 - 1.0 / 0.6 - 0.9 cm LVPW Systolic Thickness 1.1 cm LVOT Diameter 2.1 cm LV Ejection Fraction 2D Teich 69.7 % LV Ejection Fraction MOD 2C 52.5 % LV Ejection Fraction 2C AL 49.2 % LA Diameter 3.2 cm LA Width 3.1 cm LA Height 4.4 cm RA Width 3.8 cm RA Height 4.9 cm Aorta at Sinotubular Diameter 3.0 cm M-MODE LV Diastolic Diameter MM 4.3 cm 4.2 - 5.9 / 3.9 - 5.3 cm LV Systolic Diameter MM 3.1 cm LV Ejection Fraction MM Teich 53.8 % IVS Diastolic Thickness MM 1.1 cm 0.6 - 1.0 / 0.6 - 0.9 cm IVS Systolic Thickness MM 1.8 cm LVPW Diastolic Thickness MM 1.1 cm 0.6 - 1.0 / 0.6 - 0.9 cm LVPW Systolic Thickness MM 1.6 cm RV Diastolic Diameter MM 1.5 cm Aortic Annulus Diameter 4.0 cm LA Ao Ratio MM 0.8 MV E Point Septal Separation 0.9 cm DOPPLER AV Peak Velocity 115.7 cm/s LVOT Peak Velocity 77.0 cm/s AV Area Cont Eq vti 2.4 cm squared AV Area Cont Eq pk 2.3 cm squared MV Area PHT 3.7 cm squared Mitral E to A Ratio 1.0 MV E' Velocity 46.5 cm/s Mitral E to MV E' Ratio 11.0 Mitral E to LV E' Lateral Ratio 9.5 Mitral E to LV E' Septal Ratio 13.0 TR Peak Velocity 148.0 cm/s TR Peak Gradient 8.8 mmHg Right Atrial Pressure 3.0 mmHg Pulmonary Artery Systolic Pressu 11.8 mmHg PV Peak Velocity 104.0 cm/s FINDINGS Left Ventricle Normal left ventricular cavity size. Normal left ventricular systolic function. No regional wall motion abnormalities. Left ventricular ejection fraction is estimated at 55 %. Grade I/IV diastolic dysfunction (abnormal relaxation filling pattern), normal to mildly elevated filling pressures. Right Ventricle The right ventricle is normal in size and function. Right Atrium The right atrium is normal in size. Left Atrium The left atrium is normal in size. Mitral Valve Structurally normal mitral valve without significant stenosis or prolapse. There is no mitral regurgitation. Aortic Valve Structurally normal aortic valve without significant sclerosis or stenosis. There is no aortic regurgitation. Tricuspid Valve Structurally normal tricuspid valve without significant stenosis or regurgitation. Pulmonary artery systolic pressure is normal. Pulmonic Valve Structurally normal pulmonic valve without significant stenosis. There is no pulmonic regurgitation. Pericardium Normal pericardium without effusion. Aorta Normal ascending aorta dimension. CONCLUSIONS 1-Normal left ventricular cavity size. Normal left ventricular systolic function. No regional wall motion abnormalities. Left ventricular ejection fraction is estimated at 55 %. Grade I/IV diastolic dysfunction (abnormal relaxation filling pattern), normal to mildly elevated filling pressures. 2-There is no pericardial effusion. 3-No significant valve abnormalities. 4-Pulmonary artery systolic pressure is within normal limits. 5-Right atrial pressure is around 5 mm of mercury. Frank Bolden MD (Electronically Signed) Final Date: 19 November 2020 17:52 S
[2020-11-19] MEDS: enoxaparin 40 mg/0.4 mL Syringe SUBCUT (01:39)
[2020-11-19] MEDS: carbidopa-levodopa 25-100mg Tablet 2 EACH PO ×2 (01:59→21:59)
[2020-11-19 03:07] LABS: Troponin 5 6HR 11.56 ng/L (0-15); Troponin 5 6HR Delta 0.56 ng/L (0-12)
[2020-11-19 06:38] LABS: Glucose Point of Care 152 mg/dL (70-110)
[2020-11-19] MEDS: FUROsemide 10 mg/mL SDV 4mL 40 MG IVP (06:40)
[2020-11-19] MEDS: cholecalciferol (vitamin D3) 1,000 unit Tablet 2000 UNIT PO (08:13)
[2020-11-19] MEDS: cyanocobalamin 1,000 mcg Tablet 1000 MCG PO (08:14)
[2020-11-19] MEDS: doxycycline 100 mg Tablet PO (08:14)
[2020-11-19] MEDS: magnesium oxide 400 mg tablet PO (08:14)
[2020-11-19] MEDS: pregabalin 100 mg Capsule 200 MG PO (08:14)
[2020-11-19] MEDS: potassium chloride ER 20 mEq Tablet PO (08:15)
[2020-11-19] MEDS: lisinopril 10 mg Tablet 15 MG PO (08:15)
[2020-11-19] MEDS: pantoprazole DR 40 mg Tablet PO (08:15)
[2020-11-19] MEDS: atorvastatin 40 mg Tablet PO (08:15)
[2020-11-19] MEDS: carBAMazepine 200 mg Tablet PO ×2 (08:15→18:41)
--- NOTE | 2020-11-19 09:28 | P.PN_ITS ---
Subjective Subjective: Interval history: Interval history: No overnight events, patient is feeling better he is not requiring oxygen anymore, currently saturating well on room air no active chest pain fever nausea vomiting, patient stating that his symptoms started 1 week ago with shortness of breath orthopnea and PND however he has never had any CO. He does not smoke or drink alcohol. No IV drug use. No fever however noticing mild productive cough. History and physical reviewed, CT rule out PE Vitals/I&O/Wt Last Vital Signs Temp 97.8 F 11/19/20 08:00 Pulse 83 11/19/20 08:00 Resp 17 11/19/20 08:00 BP 114/66 11/19/20 08:00 Pulse Ox 95 11/19/20 08:00 11/18/20 11/19/20 11/19/20 22:59 06:59 14:59 Intake Total 120 / 120 Output Total 500 / 500 Balance -500 / -500 120 / 120 Weight last 48 hrs Weight 124.738 kg Physical Exam Narrative: EXAM NARRATIVE: Middle-aged male was sitting comfortably in his bed saturating well on room air No active chest pain S1, S2 no murmur appreciated no active signs of heart failure Abdomen distended with obesity, bowel sound present Lower extremity no edema gangrene ulcer No neurological deficit EOMI, PERRLA No joint swelling Mild venous stasis dermatitis of lower extremities Appropriate mood and affect Morbid obesity, appears stated age Data : 11/18/20 20:55 11/18/20 20:55 A&P Assessment and plan (1) Hypoxia: Status: Acute (2) Non-insulin dependent type 2 diabetes mellitus: Status: Acute (3) Shortness of breath: Status: Acute Additional A&P Information Acute hypoxic respite failure CT rule out PE no signs of pneumonia, Clinically looks euvolemic Initially it was thought secondary to CHF however hypoxia has resolved he is currently saturating well on room air He has diuresed well overnight after getting IV Lasix COVID-19 negative, PCR is pending Orthopnea and PND with shortness of breath Clinical signs of fluid overload however he is euvolemic on my assessment today he has received IV diuretics overnight, will follow up with echo his BNP is unre markable however I will not totally rely on it considering his BMI He has been taking Lasix 20 mg 3 times a day at home for lower extremity edema however denies previous history of CO or CHF For now I will switch him to p.o. 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
--- NOTE | 2020-11-19 10:28 | PC.OT ---
OT screen completed. Nursing reported pt ambulated in room independently throughout the night. Pt reported he is independent with self-cares but he is fatigued from being up most of the night. Pt reported he had no concerns with ADLs upon return home. No OT recommended at this time.
--- NOTE | 2020-11-19 10:33 | PC.PT ---
Nursing reports patient safely independent in room with lengthy ambulation due to restless leg syndrome, reports safely independent with transfers as well, patient relates same, and feels no need to physical therapy, at this time; no further PT attempts to be made unless further needs arise.
[2020-11-19 10:37] LABS: Procalcitonin 0.06 ng/mL (0-0.5); Thyroid Stimulating Hormone 2.28 uIU/mL (0.27-4.20)
[2020-11-19 10:45] LABS: Glucose Point of Care 147 mg/dL (70-110)
--- NOTE | 2020-11-19 11:01 | PC.CHAP ---
Pastoral Care Encounter/Spiritual Assessment Type of Contact [] Declined typewriter operator automatic visit [] Patient/Family/Request visit [] Outpatient visit [] Follow-up visit [] Physician referral [] Code/Alert [] Routine visit [] Staff referral [] Actively dying [] Patient sleeping [] Family support [] [] Out of room [] Palliative care [] [] Receiving care in room [] Pre-surgical visit [] Trauma [] Long length of stay [] ICU visit [X] Other: Isolation Relational/Emotional Strength [] Patient feels connected with others/family/visitors/staff [] Distress [] Loneliness/isolation [] Abandonment Spirituality of Patient [] Person of Shabana [] Attends Sabianist of their Shabana [] Believes in Prayer [] Reads Bible or Jehovah'S Witness materials [] There are Spiritual issues to be addressed Transcribing Operator Head Interventions [] Prayer [] Active listening [] Non-anxious presence [] Spiritual/emotional support [] Crisis/trauma care [] Spiritual counseling [] Bereavement support [] Provided bereavement packet [] Provided Bible/devotional materials [] Provided toy/stuffed animal, coloring book to patient or family member [] Provided Communion [] Anointing/[place] [] Salvation [] Completed spiritual assessment [] Other: Impact on Illness or Injury [] Angry [] Fearful [] Anxious [] Often cries [] Exhaustion [] Unable to work [] Unable to attend baptism [] Unable to walk/stand [] Unable to read [] Unable to drive [] Unable to eat/drink [] Unable to sleep [] Unable to be with family [] Patient intubated [] Other: Summary Isolation Time spent with patient 5 mins
[2020-11-19 17:05] LABS: Glucose Point of Care 172 mg/dL (70-110)
[2020-11-19 18:06] LABS: Coronavirus Test Green County Not Detected
[2020-11-19 21:08] LABS: Glucose Point of Care 146 mg/dL (70-110)
[2020-11-19] MEDS: trazodone 100 mg Tablet PO (21:59)
[2020-11-19] MEDS: ropinirole 1 mg Tablet PO (21:59)
[2020-11-20] MEDS: diphenhydrAMINE 25 mg Capsule PO (00:05)
[2020-11-20] MEDS: enoxaparin 40 mg/0.4 mL Syringe SUBCUT (00:05)
[2020-11-20 04:00] VITALS: BP 105/69; PULSE 83; RESP 16; TEMP 36.9; O2SAT 96
[2020-11-20 05:42] LABS: Basophils % 0.5 %; Eosinophils # 0.2 10^3/uL (0.0-0.8); Hematocrit 38.7 % (42.0-52.0); Hemoglobin 13.5 g/dL (11.7-16.6); Mean Corpuscular HGB Conc 34.9 g/dL (30.0-36.0); Mean Corpuscular Hemoglobin 32.9 pg (28.0-34.0); Mean Corpuscular Volume 94.4 fL (80-94); Mean Platelet Volume 10.2 fL (7.4-10.4); Monocytes # 0.6 10^3/uL (0.2-0.9); Monocytes % 8.4 %; Neutrophils # 4.55 10^3/uL (1.8-7.7); Neutrophils % 61.8 %; Nucleated Red Blood Cells % 0 %; Platelet Count 214 10^3/cmm (130-400); White Blood Count 7.4 10^3/uL (4.0-10.0)
[2020-11-20 06:19] LABS: Anion Gap 12.7 (5-19); Blood Urea Nitrogen 14 mg/dL (8-23); Carbon Dioxide 28 mmol/L (22-29); Chloride 98 mmol/L (98-107); Glucose 181 mg/dL (65-115); Osmolality Calculated 285 mOsm/kg (285-295); Potassium 3.7 mmol/L (3.5-5.1); Sodium 135 mmol/L (136-145)
[2020-11-20 06:44] LABS: Glucose Point of Care 129 mg/dL (70-110)
[2020-11-20 07:47] VITALS: BP 100/68; PULSE 82; RESP 17; TEMP 36.8; O2SAT 94
[2020-11-20] MEDS: FUROsemide 40 mg Tablet PO (08:35)
[2020-11-20] MEDS: pregabalin 100 mg Capsule 200 MG PO (08:35)
[2020-11-20] MEDS: magnesium oxide 400 mg tablet PO (08:35)
[2020-11-20] MEDS: lisinopril 10 mg Tablet 15 MG PO (08:35)
[2020-11-20] MEDS: potassium chloride ER 20 mEq Tablet PO (08:36)
[2020-11-20] MEDS: carBAMazepine 200 mg Tablet PO (08:36)
[2020-11-20] MEDS: cyanocobalamin 1,000 mcg Tablet 1000 MCG PO (08:36)
[2020-11-20] MEDS: atorvastatin 40 mg Tablet PO (08:36)
[2020-11-20] MEDS: pantoprazole DR 40 mg Tablet PO (08:36)
[2020-11-20] MEDS: cholecalciferol (vitamin D3) 1,000 unit Tablet 2000 UNIT PO (08:36)
--- NOTE | 2020-11-20 09:25 | P.DS_ITS ---
Discharge Providers Date of Admission: 11/18/20 22:46 Date of Discharge: November 20, 2020 Attending Provider at Admission: Kishan Burrows MD Attending Provider at Discharge: Frank Perez MD Primary Care Provider: Jose Henriquez DO Diagnoses at Discharge Discharge Diagnosis (1) Hypoxia: Status: Acute (2) Non-insulin dependent type 2 diabetes mellitus: Status: Acute (3) Shortness of breath: Status: Acute Reason for Visit Reason for Visit: DIFFICULTY BREATHING Hospital Course Hospital Course 65-year-old gentleman who was admitted for management of acute hypoxic respite failure and was diagnosed with CHF exacerbation. IV diuretics were switched to p.o. after 24 hours of good clinical response. Patient was not requiring supplemental oxygen on the day of discharge, orthopnea and PND improved patient felt improved as well. Echo revealed grade 1 diastolic dysfunction with EF 55%. Chest x-ray did not show pneumonia, PE was ruled out. Gallbladder ultrasound was unremarkable. EKG was sinus rhythm. Patient was asked to continue his Lasix that he was taking for lower extremity swelling he was counseled to increase dosage if he notices weight gain of more than 3 pounds in 24 hours or increased shortness of breath orthopnea. He does not smoke or drink alcohol, cardiac diet was recommended with sodium restricted diet. Physical Exam Narrative: EXAM NARRATIVE: Was in 7 4 position saturating well on room air S1, S2 no murmur or heart failure Abdomen distended central obesity No audible wheezing or stridor no acute respite distress Lower extremity no edema gangrene ulcer Venous stasis dermatitis of lower extremities EOMI, PERRLA Appropriate mood and affect Discharge Data Data Completed and Pending: Completed Studies During Hospitalization Category Date Time Status CT angio chest w abd pel w con Urge nt Cat Scan 11/18/20 20:51 Completed XR chest 1V anitha ble [id number] Stat Exams 11/18/20 20:29 Completed CV echo complete* [id number] Routine Ultrasound 11/19/20 00:58 Completed US gall bladder 7 [id number] Routine Ultrasound 11/19/20 00:58 Completed Pending at discharge Category Date Time Status Complete Blood Co unt w/Auto AM LABS Lab 11/21/20 04:00 Ordered Complete Blood Co unt w/Auto AM LABS Lab 11/22/20 04:00 Ordered Magnesium AM LABS Lab 11/21/20 04:00 Ordered Magnesium AM LABS Lab 11/22/20 04:00 Ordered Labs from last 24 hours 11/20/20 11/20/20 11/20/20 06:40 05:00 05:00 WBC RBC Hgb Hct MCV MCH MCHC RDW Plt Count MPV Neut % (Auto) Lymph % (Auto) [place] % (Auto) Eos % (Auto) Baso % (Auto) Neut # (Auto) Lymph # (Auto) [place] # (Auto) Eos # (Auto) Baso # (Auto) Nucleated RBC % (a uto) Nucleated RBCs # Sodium 135 L Potassium 3.7 Chloride 98 Carbon Dioxide 28 Anion Gap 12.7 BUN 14 Creatinine 1.0 GFR Calculation 75.0 L Glucose 181 H POC Glucose 129 H Calculated Osmolal ity 285 Calcium 9.0 Magnesium 2.0 Procalcitonin TSH Nasal/Oral COVID-1 9 PCR 11/20/20 11/19/20 11/19/20 05:00 20:39 16:58 WBC 7.4 RBC 4.10 Hgb 13.5 Hct 38.7 L MCV 94.4 H MCH 32.9 MCHC 34.9 RDW 12.0 L Plt Count 214 MPV 10.2 Neut % (Auto) 61.8 Lymph % (Auto) 27.0 [place] % (Auto) 8.4 Eos % (Auto) 2.0 Baso % (Auto) 0.5 Neut # (Auto) 4.55 Lymph # (Auto) 2.0 [place] # (Auto) 0.6 Eos # (Auto) 0.2 Baso # (Auto) 0.0 Nucleated RBC % (a uto) 0 Nucleated RBCs # 0.0 Sodium Potassium Chloride Carbon Dioxide Anion Gap BUN Creatinine GFR Calculation Glucose POC Glucose 146 H 172 H Calculated Osmolal ity Calcium Magnesium Procalcitonin TSH Nasal/Oral COVID-1 9 PCR 11/19/20 11/19/20 11/19/20 10:41 02:30 02:30 WBC RBC Hgb Hct MCV MCH MCHC RDW Plt Count MPV Neut % (Auto) Lymph % (Auto) [place] % (Auto) Eos % (Auto) Baso % (Auto) Neut # (Auto) Lymph # (Auto) [place] # (Auto) Eos # (Auto) Baso # (Auto) Nucleated RBC % (a uto) Nucleated RBCs # Sodium Potassium Chloride Carbon Dioxide Anion Gap BUN Creatinine GFR Calculation Glucose POC Glucose 147 H Calculated Osmolal ity Calcium Magnesium Procalcitonin Cancelled 0.06 TSH 2.28 Nasal/Oral COVID-1 9 PCR 11/19/20 02:10 WBC RBC Hgb Hct MCV MCH MCHC RDW Plt Count MPV Neut % (Auto) Lymph % (Auto) [place] % (Auto) Eos % (Auto) Baso % (Auto) Neut # (Auto) Lymph # (Auto) [place] # (Auto) Eos # (Auto) Baso # (Auto) Nucleated RBC % (a uto) Nucleated RBCs # Sodium Potassium Chloride Carbon Dioxide Anion Gap BUN Creatinine GFR Calculation Glucose POC Glucose Calculated Osmolal ity Calcium Magnesium Procalcitonin TSH Nasal/Oral COVID-1 9 PCR Not detected Vitals: Last Vital Signs Temp 98.3 F 11/20/20 07:47 Pulse 82 11/20/20 07:47 Resp 17 11/20/20 07:47 BP 100/68 11/20/20 07:47 Pulse Ox 94 11/20/20 07:47 Discharge Plan Discharge Patient Disposition: Home Condition: Stable Prescriptions: Continued carbidopa-levodopa 25-100 mg tablet 2 tab PO .HS RF: 0 cholecalciferol (vitamin D3) 2,000 unit tablet 2,000 unit PO DAILY RF: 0 pioglitazone 45 mg tablet 45 mg PO DAILY RF: 0 pregabalin 200 mg capsule 200 mg PO DAILY RF: 0 trazodone 100 mg tablet 100 mg PO DAILY RF: 0 potassium chloride 20 mEq tablet extended release 20 meq PO DAILY RF: 0 omeprazole 20 mg capsule,delayed release(DR/EC) 20 mg PO QID RF: 0 lisinopril 10 mg tablet 15 mg PO DAILY RF: 0 meclizine 25 mg tablet 25 mg PO TID PRN (Reason: Acid Reflux) RF: 0 cyanocobalamin (vitamin B-12) 1,000 mcg capsule 1,000 mcg PO DAILY RF: 0 atorvastatin 80 mg tablet 40 mg PO DAILY RF: 0 metformin 1,000 mg tablet 1,000 mg PO BID RF: 0 magnesium oxide 400 mg magnesium tablet 400 mg PO DAILY RF: 0 carbamazepine 200 mg tablet 200 mg PO BID RF: 0 ropinirole 1 mg Tablet 1 mg PO DAILY RF: 0 Changed furosemide 20 mg tablet 20 mg PO DAILY 30 Days Qty: 30 RF: 0 Discharge Orders: Discharge Order (Routine); Ordered 11/20/20 Ordered By: Frank Perez Discharge Diet: Cardiac Discharge Activity: Increase activity as tolerated Activity Restrictions/Additional Instructions: You can take Lasix 20 mg daily if you notice more shortness of breath or weight gain more than 3 pounds in 24 hours or ankle swelling you can take 20 mg twice a day keep taking potassium and magnesium with Lasix, Please watch her sodium it has to be less than 1 g a day do not eat canned food Discharge Attestations Time Spent in Discharge Care*: less than 30 min Quality Metrics Clinical Quality Measures During this hospital stay, did patient experience: None
[2020-11-20 11:32] LABS: Glucose Point of Care 161 mg/dL (70-110)
[2020-11-20 12:23] VITALS: BP 100/68; PULSE 82; RESP 17; TEMP 36.8; O2SAT 94
== END 2020-11-20 11:45 | disposition home or self-care (01) ==
LOC: ER 21:03 → MEDSURG 23:16
PROVIDERS: Admitting Provider Family Medicine; Emergency Provider Emergency Medicine; PCP Emergency Medicine Emergency Medical Services; Visit Provider Internal Medicine
DX: J96.91 Respiratory failure, unspecified with hypoxia (principal); R06.02 Shortness of breath; I11.0 Hypertensive heart disease with heart failure; I50.9 Heart failure, unspecified; E11.42 Type 2 diabetes mellitus with diabetic polyneuropathy; E78.5 Hyperlipidemia, unspecified
CPT/HCPCS: 36415; 36416; 36600; 71045; 71275; 74177; 76705; 80048; 80053; 82803; 82962; 83605; 83735; 83880; 84145; 84443; 84484; 85025; 87426; 87635; 93005; 93306; 94660; 94664; 96361; 96372; 96374; 99285; G0378; J1650; J1815; J1940; J3490; Q9967

== ENCOUNTER 2020-11-23 20:30 | Emergency (ER) | payer OTHER, SELFPAY ==
[2020-11-23 21:00] VITALS: BP 124/79; PULSE 93; RESP 18; TEMP 36.1; O2SAT 96; BMI 35.3
--- NOTE | 2020-11-23 21:04 | XR_ITS ---
WS: [id number] XR chest 1V portable [id number] REASON FOR EXAM: dyspnea FINDINGS: The chest is unchanged compared to previous examination of 11/18/2020. Moderate tortuosity thoracic aorta without aneurysmal dilatation. Normal heart size. Calcified granulomatous changes in both hemithoraces. No active pulmonary parenchymal or pleural dise ase identified. Bony thorax is intact. XR/XR chest 1V portable [id number] IMPRESSION: No acute abnormality.
--- NOTE | 2020-11-23 21:05 | ECG_ITS ---
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 Measurements Intervals [place] Rate: 91 P: 33 OK: 165 QRS: -62 QRSD: 94 T: 62 QT: 339 QTc: 419 Interpretive Statements SINUS RHYTHM LOW QRS VOLTAGE IN PRECORDIAL LEADS [QRS DEFLECTION < 1.0 mV IN CHEST LEADS] LEFT ANTERIOR FASCICULAR BLOCK [QRS AXIS <= -45, QR IN I, RS IN II] POSSIBLE ANTERIOR MYOCARDIAL INFARCTION [30 ms Q WAVE IN V3/V4, OR R < 0.2 mV IN V4], OF INDETERMINATE AGE Compared to ECG 11/18/2020 22:55:31 Myocardial infarct finding now present Electronically Signed On 11-24-2020 0:02:54 CDT by Shankar Barajas M.D. [id number]
--- NOTE | 2020-11-23 21:19 | W.ED.SOB ---
HPI - SOB/Dyspnea General: Chief Complaint: Shortness of Breath/Dyspnea Stated Complaint: SOB Time Seen by Provider: 11/23/20 21:15 Source: patient and old records reviewed History of Present Illness: HPI Narrative: This patient is a 65-year-old male who presents to the emergency department who was just discharged from the hospital 3 days ago with a complaint of shortness of breath. Patient states he gets profoundly short of breath when he tries to lay down at night to sleep states he will stay up all night long because he feels like he cannot breathe. Upon my entering the room though patient is sitting on the bed laying back in reclined with the head of the bed about 10 degrees. Patient does not appear to be acutely short of breath and O2 sat is normal on room air. Patient does not appear to be overly anxious at this time or in acute distress. Patient does admit that he has some anxiety issues and has been going through a divorce at this time. Patient does have a history of congestive heart failure and was admitted to the hospital for the same. Will do medical evaluation treat as needed. MD elicited complaint: shortness of breath Exacerbating factors: lying flat Associated symptoms: Reports abdominal pain; Deny chest pain, extremity pain, fever(s), lightheadedness, nausea, palpitations or vomiting Review of Systems General: Reports: 10 or more systems reviewed and unremarkable except in HPI and below Const: Denies: fever(s), chills, body aches or fatigue Eyes: Denies: change in vision or blurry vision ENMT: Denies: throat pain, hoarseness or mouth pain Card: Denies: chest pain, palpitations, irregular heart rhythm, edema, swelling of feet/ankles or lightheadedness Resp: Reports: dyspnea; Denies: productive cough, non-productive cough, wheezing or pain on inspiration GI: Reports: abdominal pain; Denies: nausea or vomiting : Reports: flank pain; Denies: dysuria, urinary frequency, urinary urgency or urinary hesitancy Musc: Denies: neck pain, back pain, extremity pain, extremity swelling, joint pain, joint swelling, joint redness, joint warmth or limited range of motion Skin/Breast: Denies: rash, pruritus, erythema or skin tenderness Neuro: Denies: headache(s), numbness in extremities or weakness in extremities Psych: Denies: anxiety or depression PFSH ED PFSH: Medical History Diabetes GERD (gastroesophageal reflux disease) Hyperlipidemia Hypertension Non-insulin dependent type 2 diabetes mellitus Peripheral neuropathy Restless leg Surgical History History of appendectomy Family History Father ALS (amyotrophic lateral sclerosis) Brother ALS (amyotrophic lateral sclerosis) Social History Smoking and tobacco status: never smoked Alcohol intake: never Physical Exam Const: COMMON NORMALS: no acute distress, average body habitus, patient oriented x3, no limitations, healthy appearing, alert and well nourished HENMT: COMMON NORMALS: normocephalic, atraumatic, external ears normal, EAC's normal, TM's normal bilaterally, Normal external nose present and Normal nasal mucous membranes and turbinates present HEAD & SCALP: normocephalic and atraumatic NOSE: Normal external nose present and Normal nasal mucous membranes and turbinates present EXTERNAL EAR: Yes external ears normal EXTERNAL AUDITORY CANAL: EAC's normal TYMPANIC MEMBRANE: TM's normal bilaterally Neck/C-Spine: COMMON NORMALS: full ROM, no lymphadenopathy, supple, no meningeal signs, no JVD, Thyroid normal and No carotid bruits THYROID: Thyroid normal Chest: COMMONS NORMALS: normal inspection of the chest, normal palpation of entire chest wall, normal inspection of the breasts and normal palpation of the breasts Breast/axilla inspection: Yes normal inspection of the breasts BREAST/AXILLA PALPATION: Yes normal palpation of the breasts Resp: COMMON NORMALS: normal respiratory effort, No retractions, No use of accessory muscles, clear to auscultation bilaterally and percussion normal AUSCULTATION: clear to auscultation bilaterally PERCUSSION: percussion normal Cardio: COMMON NORMALS: no JVD, regular rate, regular rhythm, S1 normal heart sound present, S2 normal heart sound present, No gallops present (Cardio), No clicks present (Cardio), No murmurs present (Cardio), No rub (Cardio) and Peripheral pulses 2+ throughout RATE: regular rate RHYTHM: regular rhythm HEART SOUNDS: S1 normal heart sound present and S2 normal heart sound present PERIPHERAL PULSES: Peripheral pulses 2+ throughout GI: COMMON NORMALS: Normal to inspection, nondistended, normoactive bowel sounds present, Soft to palpation, non-tender, No hepatosplenomegaly present, no masses and no bruits PALPATION: Yes Soft to palpation and Yes No hepatosplenomegaly present : COMMON NORMALS: Yes no CVA tenderness BLADDER/KIDNEY EXAM: Yes no CVA tenderness Back/Pelvis: COMMON NORMALS: no CVA tenderness, thoracic and lumbar spine normal to inspection, no thoracic nor lumbar tenderness, thoraco-lumbar ROM normal and straight leg raise negative bilaterally Extremity: COMMON NORMALS: normal to inspection, full ROM, capillary refill normal, no joint enlargement, no clubbing, cyanosis or edema, no calf tenderness and no pedal edema Neuro: COMMON NORMALS: patient oriented x3 SENSORIUM/ORIENTATION: Yes alert MENINGEAL SIGNS: Yes no meningeal signs Course Reevaluation(s): Reevaluation #1: Negative evaluation in the emergency department for any acute findings. Patient appears to be stable and his current chronic conditions. We did discuss at length with patient's concerns about possible anxiety related issues at night when he cannot sleep. Patient states he is going through a divorce and this is has him worried. Patient has been cannot calm pulse ox 98% on room air respirations 12-14 without difficulty blood pressure stable. Patient will continue with relaxation exercises. Will follow with primary care physician in 2 to 3 days for evaluation for possible need of medications to help sleep. Patient will take Benadryl here in the emergency department for leaving. Due to stores being closed and cannot get it [id number]. Time: 23:08 Vital Signs: Vital signs: Vital Signs Temperature 96.9 F L 11/23/20 21:00 Pulse Rate 93 11/23/20 21:00 Respiratory Rate 18 11/23/20 21:00 Blood Pressure 124/79 11/23/20 21:00 Pulse Oximetry 96 11/23/20 21:00 MDM - SOB/Dyspnea Lab Data: Labs: Lab Results 11/23/20 11/23/20 11/23/20 Range/Units 21:35 22:13 22:13 WBC 6.7 (4.0-10.0) 10^3/ uL RBC 4.41 (4.1-5.3) 10^6/u L Hgb 14.3 (11.7-16.6) g/dL Hct 41.0 L (42.0-52.0) % MCV 93.0 (80-94) fL MCH 32.4 (28.0-34.0) pg MCHC 34.9 (30.0-36.0) g/dL RDW 11.8 L (12.1-15.1) % Plt Count 259 (130-400) 10^3/c mm MPV 9.7 (7.4-10.4) fL Neut % (Auto) 54.3 % Lymph % (Auto) 32.8 % [place] % (Auto) 10.0 % Eos % (Auto) 1.9 % Baso % (Auto) 0.7 % Neut # (Auto) 3.65 (1.8-7.7) 10^3/u L Lymph # (Auto) 2.2 (0.8-4.8) 10^3/u L [place] # (Auto) 0.7 (0.2-0.9) 10^3/u L Eos # (Auto) 0.1 (0.0-0.8) 10^3/u L Baso # (Auto) 0.1 (0.0-0.1) 10^3/u L Nucleated RBC % (a uto) 0 % Nucleated RBCs # 0.0 /100WBC D-Dimer 0.35 (0-0.59) ug/mIFE U Specimen Type Arterial Sample Site Radial, right ABG pH 7.46 H (7.35-7.45) ABG pCO2 36.8 (35-45) mmHg ABG pO2 79.6 L (80.0-100.0) mmH g ABG HCO3 26.2 H (22-26) mmol/L ABG O2 Saturation 96.6 ABG Base Excess 2.5 H (-2.0-2.0) mmol/ L Timmy Test Pos A-a O2 Gradient 3.0 L (5-10) mmHg Hematocrit 45.9 (42-52) % Hgb O2 Saturation 95.3 (95-100) % Carboxyhemoglobin 0.7 (0.4-20.1) %THgb Methemoglobin 0.8 (0.4-1.5) % Total Hemoglobin 15.0 (14-18) g/dL Sodium 137.0 (131-143) mmol/L Potassium 3.9 (3.5-5.0) mmol/L Glucose 115.0 (70-115) mg/dL Ionized Calcium 1.2 (1.1-1.4) mmol/L O2 Delivery Device Room air Marketing Services Coordinator ID [email or web address] Chloride (98-107) mmol/L Carbon Dioxide (22-29) mmol/L Anion Gap (5-19) BUN (8-23) mg/dL Creatinine (0.7-1.2) mg/dL GFR Calculation (90-130) mL/min Calculated Osmolal ity (285-295) mOsm/k g Calcium (8.5-10.5) mg/dL Total Bilirubin (0.15-1.2) mg/dL AST (0-40) U/L ALT (0-41) U/L Alkaline Phosphata se (40-130) IU/L Troponin T Baselin e (0-15) ng/L NT-Pro-B Natriuret Pep (0-125) pg/mL Total Protein (6.6-8.7) g/dL Albumin (3.5-5.2) g/dL Globulin (1.3-4.6) g/dL Urine Color (Yellow) Urine Appearance (CLEAR) Urine pH (5-7) Ur Specific Gravit y (1.005-1.030) Urine Protein (Negative) Urine Glucose (UA) (Normal) Urine Ketones (Negative) Urine Blood (Negative) Urine Nitrate (Negative) Urine Bilirubin (Negative) Urine Urobilinogen (Negative) mg/dL Ur Leukocyte Sera ase (Negative) 11/23/20 11/23/20 11/23/20 Range/Units 22:13 22:13 22:24 WBC (4.0-10.0) 10^3/ uL RBC (4.1-5.3) 10^6/u L Hgb (11.7-16.6) g/dL Hct (42.0-52.0) % MCV (80-94) fL MCH (28.0-34.0) pg MCHC (30.0-36.0) g/dL RDW (12.1-15.1) % Plt Count (130-400) 10^3/c mm MPV (7.4-10.4) fL Neut % (Auto) % Lymph % (Auto) % [place] % (Auto) % Eos % (Auto) % Baso % (Auto) % Neut # (Auto) (1.8-7.7) 10^3/u L Lymph # (Auto) (0.8-4.8) 10^3/u L [place] # (Auto) (0.2-0.9) 10^3/u L Eos # (Auto) (0.0-0.8) 10^3/u L Baso # (Auto) (0.0-0.1) 10^3/u L Nucleated RBC % (a uto) % Nucleated RBCs # /100WBC D-Dimer (0-0.59) ug/mIFE U Specimen Type Sample Site ABG pH (7.35-7.45) ABG pCO2 (35-45) mmHg ABG pO2 (80.0-100.0) mmH g ABG HCO3 (22-26) mmol/L ABG O2 Saturation ABG Base Excess (-2.0-2.0) mmol/ L Timmy Test A-a O2 Gradient (5-10) mmHg Hematocrit (42-52) % Hgb O2 Saturation (95-100) % Carboxyhemoglobin (0.4-20.1) %THgb Methemoglobin (0.4-1.5) % Total Hemoglobin (14-18) g/dL Sodium 135 L (131-143) mmol/L Potassium 4.1 (3.5-5.0) mmol/L Glucose 114 (70-115) mg/dL Ionized Calcium (1.1-1.4) mmol/L O2 Delivery Device Marketing Services Coordinator ID Chloride 98 (98-107) mmol/L Carbon Dioxide 26 (22-29) mmol/L Anion Gap 15.1 (5-19) BUN 10 (8-23) mg/dL Creatinine 0.8 (0.7-1.2) mg/dL GFR Calculation 97.0 (90-130) mL/min Calculated Osmolal ity 280 L (285-295) mOsm/k g Calcium 9.2 (8.5-10.5) mg/dL Total Bilirubin 0.4 (0.15-1.2) mg/dL AST 20 (0-40) U/L ALT 24 (0-41) U/L Alkaline Phosphata se 101 (40-130) IU/L Troponin T Baselin e 10 (0-15) ng/L NT-Pro-B Natriuret Pep 22 (0-125) pg/mL Total Protein 7.0 (6.6-8.7) g/dL Albumin 4.6 (3.5-5.2) g/dL Globulin 2.4 (1.3-4.6) g/dL Urine Color Yellow (Yellow) Urine Appearance Clear (CLEAR) Urine pH 7 (5-7) Ur Specific Gravit y 1.010 (1.005-1.030) Urine Protein Neg (Negative) Urine Glucose (UA) Norm (Normal) Urine Ketones Negative (Negative) Urine Blood Neg (Negative) Urine Nitrate Negative (Negative) Urine Bilirubin Neg (Negative) Urine Urobilinogen Norm (Negative) mg/dL Ur Leukocyte Sera ase Negative (Negative) EKG Data^: EKG 1: Attestation: I personally reviewed and interpreted this EKG as follows: EKG Interpretation Date: 11/23/20 EKG interpretation time: 21:25 Prior EKG tracings: available for review Interpretation: Sinus rhythm heart rate 81. Incomplete right bundle branch block left anterior fascicular block nonspecific EKG changes. ABG Data^: ABG Interpretation 1: ABG results: pH is 7.46. PCO2 is 36.8. PO2 is 79.6. There is did not appear to be any acute findings. Attestation: I personally reviewed and interpreted this ABG as follows: Discharge Plan Discharge Patient Disposition: Home Clinical Impression: Anxiety, Dyspnea Condition: Stable Prescriptions: No Action carbidopa-levodopa 25-100 mg tablet 2 tab PO .HS RF: 0 cholecalciferol (vitamin D3) 2,000 unit tablet 2,000 unit PO DAILY RF: 0 pioglitazone 45 mg tablet 45 mg PO DAILY RF: 0 pregabalin 200 mg capsule 200 mg PO DAILY RF: 0 trazodone 100 mg tablet 100 mg PO DAILY RF: 0 potassium chloride 20 mEq tablet extended release 20 meq PO DAILY RF: 0 omeprazole 20 mg capsule,delayed release(DR/EC) 20 mg PO QID RF: 0 lisinopril 10 mg tablet 15 mg PO DAILY RF: 0 meclizine 25 mg tablet 25 mg PO TID PRN (Reason: Acid Reflux) RF: 0 cyanocobalamin (vitamin B-12) 1,000 mcg capsule 1,000 mcg PO DAILY RF: 0 atorvastatin 80 mg tablet 40 mg PO DAILY RF: 0 metformin 1,000 mg tablet 1,000 mg PO BID RF: 0 magnesium oxide 400 mg magnesium tablet 400 mg PO DAILY RF: 0 carbamazepine 200 mg tablet 200 mg PO BID RF: 0 ropinirole 1 mg Tablet 1 mg PO DAILY RF: 0 furosemide 20 mg tablet 20 mg PO DAILY 30 Days Qty: 30 RF: 0 Discharge Orders: Discharge ED (Routine); Ordered 11/23/20 Ordered By: Sebastian Berg Referrals: Jose Henriquez, DO [Primary Care Provider] - Discharge Diet: Advance as tolerated Discharge Activity: Resume usual activity Patient Instructions: Opioid Safety Activity Restrictions/Additional Instructions: Follow-up with your primary care physician to discuss possible medications to help with anxiety and sleep. Continue all home medications. Coding Level of Care Code ED Surface Grinder for Obed Fwd Exam Comprehensive
[2020-11-23 21:42] LABS: ABG PCO2 36.8 mmHg (35-45); ABG PH Result 7.46 (7.35-7.45); Arterial Blood Gas Hematocrit 45.9 % (42-52); Base Excess ABG 2.5 mmol/L (-2.0-2.0); Blood Gas Allen Test Pos; Blood Gas Sample Site Radial, right; Blood Gas Sample Type Arterial; Carboxyhemoglobin 0.7 %THgb (0.4-20.1); HCO3 ABG 26.2 mmol/L (22-26); HGB O2 Sat 95.3 % (95-100); Ionized Calcium Level - ABG 1.2 mmol/L (1.1-1.4); Methemoglobin 0.8 % (0.4-1.5); Oxygen Device ROOM AIR; Oxygen Saturation ABG 96.6; PO2 ABG 79.6 mmHg (80.0-100.0); Potassium Level - ABG 3.9 mmol/L (3.5-5.0)
[2020-11-23 22:23] LABS: Basophils # 0.1 10^3/uL (0.0-0.1); Basophils % 0.7 %; Eosinophils # 0.1 10^3/uL (0.0-0.8); Eosinophils % 1.9 %; Hemoglobin 14.3 g/dL (11.7-16.6); Lymphocytes # 2.2 10^3/uL (0.8-4.8); Lymphocytes % 32.8 %; Mean Corpuscular HGB Conc 34.9 g/dL (30.0-36.0); Mean Corpuscular Hemoglobin 32.4 pg (28.0-34.0); Mean Platelet Volume 9.7 fL (7.4-10.4); Monocytes # 0.7 10^3/uL (0.2-0.9); Neutrophils # 3.65 10^3/uL (1.8-7.7); Neutrophils % 54.3 %; Nucleated Red Blood Cells % 0 %; Platelet Count 259 10^3/cmm (130-400); Red Blood Count 4.41 10^6/uL (4.1-5.3); Red Cell Distribution Width 11.8 % (12.1-15.1); White Blood Count 6.7 10^3/uL (4.0-10.0)
[2020-11-23 22:29] LABS: Add Urine Microscopic? NO
[2020-11-23 22:37] LABS: D Dimer 0.35 ug/mIFEU (0-0.59)
[2020-11-23 22:39] LABS: Bilirubin Urine Neg (Negative); Blood Urine Neg (Negative); Glucose Urine UA Norm (Normal); Ketones Urine Negative (Negative); Leukocyte Esterase Urine Negative (Negative); Nitrate Urine Negative (Negative); Protein Urine Neg (Negative); Urine Appearance Clear (CLEAR); Urine Color Yellow (Yellow); Urobilinogen Urine Norm (Negative); pH Urine 7 (5-7)
[2020-11-23 22:41] LABS: Troponin(5th) Baseline 10 ng/L (0-15)
[2020-11-23 22:54] LABS: Alanine Aminotransferase 24 U/L (0-41); Albumin Level 4.6 g/dL (3.5-5.2); Alkaline Phosphatase 101 IU/L (40-130); Anion Gap 15.1 (5-19); Aspartate Amino Transferase 20 U/L (0-40); Blood Urea Nitrogen 10 mg/dL (8-23); Calcium 9.2 mg/dL (8.5-10.5); Carbon Dioxide 26 mmol/L (22-29); Chloride 98 mmol/L (98-107); Creatinine Clr Calc Pharmacy 129.1865; Globulin 2.4 g/dL (1.3-4.6); Glucose 114 mg/dL (65-115); NT Pro B Type Natriuretic Pept 22 pg/mL (0-125); Osmolality Calculated 280 mOsm/kg (285-295); Potassium 4.1 mmol/L (3.5-5.1); Sodium 135 mmol/L (136-145); Total Bilirubin 0.4 mg/dL (0.15-1.2)
--- NOTE | 2020-11-23 23:05 | ECG_ITS ---
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 Measurements Intervals [place] Rate: 81 P: 46 [place]: 177 QRS: -55 QRSD: 104 T: 66 QT: 346 QTc: 403 Interpretive Statements SINUS RHYTHM INCOMPLETE RIGHT BUNDLE BRANCH BLOCK [90+ ms QRS DURATION, TERMINAL R IN V1/V2, 40+ ms S IN I/aVL/V4/V5/V6] LEFT ANTERIOR FASCICULAR BLOCK [QRS AXIS <= -45, QR IN I, RS IN II] POSSIBLE ANTERIOR MYOCARDIAL INFARCTION , OF INDETERMINATE AGE [30 ms Q WAVE IN V3/V4, OR R < 0.2 mV IN V4] Compared to ECG 11/23/2020 21:03:40 Incomplete right bundle-branch block now present Myocardial infarct finding still present Electronically Signed On 11-25-2020 7:59:29 CDT by Poppy Barrera M.D. [id number]
[2020-11-23] MEDS: diphenhydrAMINE 50 mg Capsule PO (23:29)
== END 2020-11-23 23:38 | disposition home or self-care (01) ==
PROVIDERS: Family Medicine; Emergency Provider Emergency Medicine; PCP Emergency Medicine Emergency Medical Services
DX: F41.9 Anxiety disorder, unspecified (principal); R06.00 Dyspnea, unspecified; Z79.84 Long term (current) use of oral hypoglycemic drugs; E11.42 Type 2 diabetes mellitus with diabetic polyneuropathy; E78.5 Hyperlipidemia, unspecified; I10 Essential (primary) hypertension
CPT/HCPCS: 36600; 71045; 80051; 80053; 81003; 82330; 82805; 83880; 84484; 85025; 85378; 93005; 99283; Q0163

== ENCOUNTER 2020-12-03 18:30 | Emergency (ER) | payer OTHER, SELFPAY ==
[2020-12-03 18:31] VITALS: BP 138/89; PULSE 111; RESP 20; TEMP 36.8; O2SAT 97; BMI 35.5
--- NOTE | 2020-12-03 18:31 | XR_ITS ---
WS: [id number] Exam: XR KUB portable [id number] Date/Time of Exam: 12/03/2020 6:33 PM Reason For Exam: constipated No bowel obstruction or free air. Moderate amount retained stool throughout the colon. Visualized org an margins are intact. Degenerative changes of the L-spine and hips. XR/XR KUB portable [id number] IMPRESSION: 1. No acute abdominal finding. 2. There is some stool retained in the colon but no sign of constipation or fec al impaction.
--- NOTE | 2020-12-03 18:44 | ED_ITS ---
HPI - Abdominal Pain General: Chief Complaint: Abdominal Pain Stated Complaint: ABD PAIN/CONSTIPATION DUE TO NEW MED, HE STATES Time Seen by Provider: 12/03/20 18:38 Source: patient Mode of arrival: ambulatory Limitations: no limitations History of Present Illness: HPI narrative: 65-year-old male who started a new medicine for restless leg syndrome. He states that since starting that he has had diarrhea along with constipation. States initially had diarrhea now having constipation. He states is having abdominal discomfort as well and has had decreased appetite. He states that he feels like things are getting stuck in his abdomen. He has had no vomiting. He states he has had some nausea. Denies any worsening or improving factors. Associated Symptoms: Reports constipation and diarrhea; Denies chills, dysuria, fever(s), nausea and vomiting Review of Systems Const: Denies: fever(s), chills, body aches or change in appetite Eyes: Denies: blurry vision or eye discomfort ENMT: Denies: throat pain or dental pain Card: Denies: chest pain Resp: Denies: dyspnea GI: Reports: abdominal pain, diarrhea and constipation; Denies: nausea or vomiting : Denies: dysuria Musc: Denies: neck pain or back pain Skin/Breast: Denies: rash Neuro: Denies: headache(s) Psych: Denies: depression Teo/Lymph: Denies: easy bruising All/Imm: Denies: urticaria PFSH ED PFSH: Medical History Diabetes GERD (gastroesophageal reflux disease) Hyperlipidemia Hypertension Non-insulin dependent type 2 diabetes mellitus Peripheral neuropathy Restless leg Surgical History History of appendectomy Family History Father ALS (amyotrophic lateral sclerosis) Brother ALS (amyotrophic lateral sclerosis) Social History Smoking and tobacco status: never smoked Alcohol intake: never Physical Exam Const: COMMON NORMALS: no acute distress, patient oriented x3 and healthy appearing HENMT: COMMON NORMALS: normocephalic and atraumatic HEAD & SCALP: normocephalic and atraumatic Eye: COMMON NORMALS: Equal, round and reactive pupils present and EOMs intact bilaterally PUPIL: Yes Equal, round and reactive pupils present Neck/C-Spine: COMMON NORMALS: full ROM and supple Chest: COMMONS NORMALS: normal inspection of the chest and normal palpation of entire chest wall Resp: COMMON NORMALS: normal respiratory effort, No retractions, No use of acc essory muscles and clear to auscultation bilaterally AUSCULTATION: clear to auscultation bilaterally Cardio: COMMON NORMALS: regular rate, regular rhythm and No murmurs present (Cardio) RATE: regular rate RHYTHM: regular rhythm GI: COMMON NORMALS: Normal to inspection, nondistended, normoactive bowel sounds present, Soft to palpation, non-tender and no masses PALPATION: Yes Soft to palpation Extremity: COMMON NORMALS: normal to inspection and full ROM Neuro: COMMON NORMALS: patient oriented x3, moves all extremities and no focal motor deficits Psych: COMMON NORMALS: mental status grossly normal, Normal thought process present and cooperative THOUGHT PROCESS: Normal thought process present Skin: COMMON NORMALS: no rashes or lesions noted and no wounds GENERAL SKIN EXAM: no rashes or lesions noted Course Vital Signs: Vital signs: Vital Signs Temperature 98.2 F 12/03/20 18:31 Pulse Rate 111 H 12/03/20 18:31 Respiratory Rate 20 H 12/03/20 18:31 Blood Pressure 138/89 12/03/20 18:31 Pulse Oximetry 97 12/03/20 18:31 MDM - Abdominal Pain MDM Narrative: Medical decision making narrative: Turner presents with abdominal pain from constipation. His x-ray here showed no signs of small bowel obstruction. He is in no vomiting. His blood work here is all normal. He is take MiraLAX and he is stable for discharge. He is to follow-up his PCP in 3 to 5 days and return if worsening. Lab Data: Labs: Lab Results 12/03/20 12/03/20 Range/Units 20:08 20:08 WBC 8.3 (4.0-10.0) 10^3/ uL RBC 4.55 (4.1-5.3) 10^6/u L Hgb 14.7 (11.7-16.6) g/dL Hct 42.0 (42.0-52.0) % MCV 92.3 (80-94) fL MCH 32.3 (28.0-34.0) pg MCHC 35.0 (30.0-36.0) g/dL RDW 12.0 L (12.1-15.1) % Plt Count 258 (130-400) 10^3/c mm MPV 9.8 (7.4-10.4) fL Neut % (Auto) 65.3 % Lymph % (Auto) 24.7 % [place] % (Auto) 7.8 % Eos % (Auto) 1.3 % Baso % (Auto) 0.7 % Neut # (Auto) 5.38 (1.8-7.7) 10^3/u L Lymph # (Auto) 2.0 (0.8-4.8) 10^3/u L [place] # (Auto) 0.6 (0.2-0.9) 10^3/u L Eos # (Auto) 0.1 (0.0-0.8) 10^3/u L Baso # (Auto) 0.1 (0.0-0.1) 10^3/u L Nucleated RBC % (a uto) 0 % Nucleated RBCs # 0.0 /100WBC Sodium 136 (136-145) mmol/L Potassium 3.5 (3.5-5.1) mmol/L Chloride 100 (98-107) mmol/L Carbon Dioxide 22 (22-29) mmol/L Anion Gap 17.5 (5-19) BUN 8 (8-23) mg/dL Creatinine 0.7 (0.7-1.2) mg/dL GFR Calculation 113.2 (90-130) mL/min Glucose 145 H (65-115) mg/dL Calculated Osmolal ity 283 L (285-295) mOsm/k g Calcium 8.7 (8.5-10.5) mg/dL Total Bilirubin 0.4 (0.15-1.2) mg/dL AST 21 (0-40) U/L ALT 22 (0-41) U/L Alkaline Phosphata se 96 (40-130) IU/L Total Protein 7.1 (6.6-8.7) g/dL Albumin 4.5 (3.5-5.2) g/dL Globulin 2.6 (1.3-4.6) g/dL Lipase 18 (13-60) U/L Discharge Plan Discharge Patient Disposition: Home Clinical Impression: Constipation Abdominal pain Qualifiers: Abdominal location: generalized Qualified Code(s): R10.84 - Generalized abdominal pain Condition: Stable Prescriptions: New Miralax 17 gram/dose powder 17 g PO DAILY PRN (Reason: constipation) Qty: 119 RF: 0 No Action carbidopa-levodopa 25-100 mg tablet 2 tab PO BEDTIME RF: 0 cholecalciferol (vitamin D3) 2,000 unit tablet 2,000 unit PO QAM RF: 0 trazodone 100 mg tablet 100 mg PO BEDTIME PRN (Reason: Sleep) RF: 0 potassium chloride 20 mEq tablet extended release 20 meq PO QAM RF: 0 omeprazole 20 mg capsule,delayed release(DR/EC) 20 mg PO QAM RF: 0 lisinopril 10 mg tablet 5 mg PO QPM RF: 0 cyanocobalamin (vitamin B-12) 1,000 mcg capsule 1,000 mcg PO DAILY RF: 0 metformin 1,000 mg tablet 1,000 mg PO BID RF: 0 magnesium oxide 400 mg magnesium tablet 400 mg PO QAM RF: 0 furosemide 20 mg tablet 20 mg PO DAILY 30 Days Qty: 30 RF: 0 levothyroxine 25 mcg Tablet 12.5 mcg PO QAM RF: 0 Tegretol XR 200 mg Tablet Extended Release 12 Hr 200 mg PO BID RF: 0 ropinirole 0.5 mg tablet 0.5 mg PO .2 HOURS BEFORE BED RF: 0 pioglitazone 30 mg Tablet 15 mg PO QAM RF: 0 Julia-D 12 Hour 60-120 mg Tablet Extended Release 12 Hr 1 tab PO Q12H PRN (Reason: UNKNOWN) RF: 0 rosuvastatin 40 mg Tablet 20 mg PO QPM RF: 0 Ozempic 0.25 mg or 0.5 mg(2 mg/1.5 mL) Pen Injector 0.5 mg SUBCUT Q7D RF: 0 Lyrica See Rx Instructions .ROUTE .COMPLEX RF: 0 Discharge Orders: Discharge ED (Routine); Ordered 12/03/20 Ordered By: Sha Kaufman Referrals: Jose Henriquez DO [Primary Care Provider] - Discharge Diet: Advance as tolerated Discharge Activity: Resume usual activity Patient Instructions: Abdominal Pain (ED) Coding Level of Care Code ED Senior Clinician for Chg Fwd Exam Comprehensive
--- NOTE | 2020-12-03 19:26 | PC.PHAR ---
PT STATES HE TAKES CARE OF HIS OWN MEDICATIONS-PT BROUGHT IN MEDICATION BOTTLES-PT STATES HE TAKES OZEMPIC .5 EVERY MONDAYS BUT DIDNT BRING THAT IN-[facility]ING [facility]-PT STATES HE TAKES LYRICA PT STATES HE HAS BEEN OUT FOR 2 WEEKS AND IS UNSURE OF THE MG-WAITING FOR [facility] TO SEND MED LIST
[2020-12-03] MEDS: metoclopramide 10 mg Tablet PO (19:32)
[2020-12-03 20:23] LABS: Basophils # 0.1 10^3/uL (0.0-0.1); Basophils % 0.7 %; Eosinophils # 0.1 10^3/uL (0.0-0.8); Eosinophils % 1.3 %; Hemoglobin 14.7 g/dL (11.7-16.6); Lymphocytes % 24.7 %; Mean Corpuscular Hemoglobin 32.3 pg (28.0-34.0); Mean Corpuscular Volume 92.3 fL (80-94); Mean Platelet Volume 9.8 fL (7.4-10.4); Monocytes # 0.6 10^3/uL (0.2-0.9); Monocytes % 7.8 %; Neutrophils # 5.38 10^3/uL (1.8-7.7); Neutrophils % 65.3 %; Nucleated Red Blood Cells % 0 %; Platelet Count 258 10^3/cmm (130-400); Red Blood Count 4.55 10^6/uL (4.1-5.3); White Blood Count 8.3 10^3/uL (4.0-10.0)
[2020-12-03 20:42] LABS: Alanine Aminotransferase 22 U/L (0-41); Albumin Level 4.5 g/dL (3.5-5.2); Alkaline Phosphatase 96 IU/L (40-130); Aspartate Amino Transferase 21 U/L (0-40); Blood Urea Nitrogen 8 mg/dL (8-23); Calcium 8.7 mg/dL (8.5-10.5); Chloride 100 mmol/L (98-107); Globulin 2.6 g/dL (1.3-4.6); Glomerular Filtration Rate 113.2 mL/min (90-130); Glucose 145 mg/dL (65-115); Lipase 18 U/L (13-60); Osmolality Calculated 283 mOsm/kg (285-295); Potassium 3.5 mmol/L (3.5-5.1); Sodium 136 mmol/L (136-145); Total Bilirubin 0.4 mg/dL (0.15-1.2); Total Protein 7.1 g/dL (6.6-8.7)
[2020-12-03 21:04] LABS: Anion Gap 17.5 (5-19); Carbon Dioxide 22 mmol/L (22-29)
[2020-12-03 21:45] VITALS: BP 131/86; PULSE 95; RESP 16; O2SAT 96
== END 2020-12-03 21:07 | disposition home or self-care (01) ==
PROVIDERS: Emergency Provider Emergency Medicine; PCP Emergency Medicine Emergency Medical Services
DX: K59.00 Constipation, unspecified (principal); R10.84 Generalized abdominal pain; E78.5 Hyperlipidemia, unspecified; I10 Essential (primary) hypertension; E11.42 Type 2 diabetes mellitus with diabetic polyneuropathy
CPT/HCPCS: 74018; 80053; 83690; 85025; 99283; J8597

== ENCOUNTER 2020-12-18 13:12 | Emergency (ER) | payer OTHER, SELFPAY ==
[2020-12-18 13:19] VITALS: BP 134/82; PULSE 102; RESP 18; TEMP 36.6; O2SAT 96; BMI 35.5
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
== END 2020-12-18 13:47 | disposition home or self-care (01) ==
LOC: ER 18:06
PROVIDERS: Emergency Provider Nurse Practitioner Family; PCP Emergency Medicine Emergency Medical Services
DX: H35.61 Retinal hemorrhage, right eye (principal); W20.8XXA Other cause of strike by thrown, projected or falling object, initial encounter; Z79.84 Long term (current) use of oral hypoglycemic drugs; E11.9 Type 2 diabetes mellitus without complications
CPT/HCPCS: 99281

== ENCOUNTER 2021-02-12 12:59 | Outpatient (CLI) | payer OTHER, MEDICARE, SELFPAY ==
--- NOTE | 2021-02-12 13:18 | US_ITS ---
WS: [id number] ULTRASOUND BREAST RIGHT TECHNIQUE: Ultrasound right breast focused area of concern. CLINICAL INFORMATION: RIGHT AXILLA SCAR VERSUS MASS COMPARISON: None. FINDINGS: Ultrasound right axilla in the area of concern. No evidence of cystic or solid lesion. A few normal-a ppearing lymph nodes. No suspicious findings. No lesions to target for biopsy. US/US breast RT complete [id number] IMPRESSION: No suspicious findings right axilla.
== END 2021-02-12 13:00 | disposition home or self-care (01) ==
LOC: RAD 13:04
PROVIDERS: PCP Emergency Medicine Emergency Medical Services; Visit Provider Family Medicine
DX: N63.31 Unspecified lump in axillary tail of the right breast (principal)
CPT/HCPCS: 76641

== ENCOUNTER → 2021-03-11 14:44 | Outpatient (BNVA) | payer OTHER, SELFPAY | PROVIDERS: PCP Emergency Medicine Emergency Medical Services; Referring Provider Family Medicine; Visit Provider Nurse Practitioner Family | DX: R33.9 Retention of urine, unspecified (principal); N52.9 Male erectile dysfunction, unspecified | CPT/HCPCS: 81003 ==

== ENCOUNTER → 2021-03-19 14:31 | Outpatient (BNVA) | payer OTHER, SELFPAY | PROVIDERS: PCP Emergency Medicine Emergency Medical Services; Visit Provider Surgery | DX: R19.4 Change in bowel habit (principal); Z01.812 Encounter for preprocedural laboratory examination; Z20.822 Contact with and (suspected) exposure to COVID-19 | CPT/HCPCS: 87635 ==

== ENCOUNTER 2021-03-24 08:14 | Day surgery (SDC) | payer OTHER, SELFPAY ==
[2021-03-19 14:37] VITALS: BMI 34.0
--- NOTE | 2021-03-24 09:01 | ANES.PREANE2 ---
Pre-Anesthetic Assessment Pre-Anesthetic Assessment: Height/Weight: Height 1.88 m Weight 120.202 kg Preop Diagnosis: Anorexia and change in bowel habits/weight loss Proposed Procedure: Operation Date: 03/24/21 10:00 Proposed Procedures p EGD [id number] r19.4(Not Applicable) - MD ramonita Jones Colonoscopy(Not Applicable) - Eleno Fonseca MD Was Beta Vivienne taken within 24 hours: N/A Was Clonidine taken within 24 hours: N/A Social: Social History: No alcohol and No tobacco Exam: Pre-Anes Outpt Exam: alert, oriented x 3, clear to auscultation bilaterally and regular rate & rhythm Airway: Submandibular: WNL Cervical ROM: WNL MP: 2 Dentition: Full CV/HEM: CV/HEM: CHF and HTN GI: GI: GERD Metabolic: Metabolic: DM, Hyperlipidemia, Morbid obesity and Thyroid Musc/skel: Musc/skel: Lower Back Pain Neuropsych: Neuropsych: Anxiety and Neuropathy Anesthetic Plan: ASA status: 3 Anesthesia: MAC Risk of > 500 ml blood loss (7ml/kg in children): No PFSH Anesthesia PFSH: Medical History CHF (congestive heart failure) Diabetes Erectile dysfunction GERD (gastroesophageal reflux disease) Hyperlipidemia Hypertension Incomplete bladder emptying Major depressive disorder Non-insulin dependent type 2 diabetes mellitus ROMEO (obstructive sleep apnea) Peripheral neuropathy Restless leg Surgical History History of appendectomy Family History Father ALS (amyotrophic lateral sclerosis) Lung disease Brother ALS (amyotrophic lateral sclerosis) Grandmother Cancer Diabetes Grandfather Cancer Son Cancer Mother Dementia Denies family history of CAD (coronary artery disease) Clotting disorder Chronic kidney disease (CKD) Suicide Anesthesia complication Bleeding disorder Stroke Social History Smoking and tobacco status: never smoked Alcohol intake: never Marital status: Current occupational status: retired Data Anesthesia Cardiac Studies: No Data to Display
[2021-03-24 09:23] VITALS: BP 130/85; PULSE 71; RESP 20; TEMP 36.9; O2SAT 96
[2021-03-24] MEDS: sodium chloride 0.9% 1,000 ML 30 ML IV (09:30)
--- NOTE | 2021-03-24 09:39 | W.PM.OPSFHP ---
Same Day Surgery H&P Indication for Procedure/HPI DATE OF PROCEDURE: March 24, 2021 CHIEF COMPLAINT/INDICATIONFOR SURGICAL PROCEDURE: Change in bowel habits PREOP DIAGNOSIS: Anorexia and change in bowel habits/weight loss PLANNED PROCEDRUE: Operation Date: 03/24/21 10:00 Proposed Procedures p EGD [id number] r19.4(Not Applicable) - Eleno Fonseca MD s Colonoscopy(Not Applicable) - Eleno Fonseca MD This is a pleasant 65 years old gentleman referred to my practice with history of change in bowel habits over a 1 month and a half or so, patient reports that he has been having diarrhea, no associated bleeding per rectum, denies any contact with sick individuals and no recent travels. And is not on any antibiotics. Yet he does continue to be on different medications for diabetes mellitus type 2. Also reports that he lost about 25 pounds over the past couple of months. CT scan of the chest abdomen and pelvis November 18, 2020 showed below; No evidence of pulmonary embolism 1. Marked bladder distension. 2. Mild bladder wall thickening with a trabeculated appearance of the bladder wall, suggesting sequela of chronic outlet obstruction. 3. Multilevel degenerative changes of varying severity in the visualized spine. 4. Moderate spinal canal stenosis at L2-L3, L3-L4, and L5-S1. Moderate to severe spinal canal stenosis at L4-L5. Multilevel foraminal stenosis of varying severity in the lumbar spine. Patient is referred to me for further evaluation for his condition, he denies history of colon cancer and he does report history of traumatic brain injury. Also reports history of anorexia. Interim history 03/24/2021 Patient comes today for diagnostic EGD and colonoscopy ROS All systems have been reviewed negative except as per the above or per problem list Medications/Allergies* Home Medications Medication Instructions Recorded Confirmed Type carbidopa 25 mg-levodopa 100 mg 2 tab PO BEDTIME tab 10/17/19 03/19/21 History tablet magnesium oxide 400 mg PO QAM 10/17/19 03/19/21 History omeprazole 20 mg capsule,delayed 20 mg PO QAM cap 10/17/19 03/19/21 History release trazodone 100 mg tablet 100 mg PO BEDTIME PRN 10/17/19 03/19/21 History carbamazepine [Tegretol XR] 200 mg PO BID 12/03/20 03/19/21 History fexofenadine-pseudoephedrine 1 tab PO Q12H PRN 12/03/20 03/19/21 History [Julia-D 12 Hour] levothyroxine 12.5 mcg PO QAM 12/03/20 03/19/21 History rosuvastatin 20 mg PO QPM 12/03/20 03/19/21 History semaglutide [Ozempic] 0.5 mg SUBCUT Q7D 12/03/20 03/19/21 History alprazolam 0.5 mg tablet 0.5 mg PO BID 02/24/21 03/19/21 History aspirin 81 mg tablet,delayed 81 mg PO DAILY 02/24/21 03/24/21 History release celecoxib 100 mg capsule 100 mg PO BID 02/24/21 03/19/21 History cholecalciferol (vitamin D3) 25 25 mcg PO DAILY 02/24/21 03/19/21 History mcg (1,000 unit) capsule cyanocobalamin (vitamin B-12) 1,000 mcg PO DAILY 02/24/21 03/19/21 History 1,000 mcg tablet furosemide 20 mg tablet 60 mg PO DAILY tab 02/24/21 03/19/21 History gabapentin 300 mg capsule 300 mg PO TID 02/24/21 03/19/21 History lisinopril 5 mg tablet 5 mg PO DAILY 02/24/21 03/19/21 History meclizine 25 mg tablet 25 mg PO TID PRN 02/24/21 03/19/21 History metformin 1,000 mg tablet 1,000 mg PO BID 02/24/21 03/24/21 History pioglitazone 15 mg tablet 15 mg PO DAILY 02/24/21 03/19/21 History polyvinyl alcohol 1.4 % eye drops 1 drp OPHTHALMIC (EYE) DAILY 02/24/21 03/19/21 History potassium chloride 20 mEq 20 meq PO DAILY 02/24/21 03/19/21 History tablet,extended release pregabalin 150 mg capsule 150 mg PO TID 02/24/21 03/19/21 History ropinirole 2 mg tablet 2 mg PO DAILY 02/24/21 03/19/21 History sertraline 100 mg tablet 100 mg PO DAILY 02/24/21 03/19/21 History tizanidine 4 mg tablet 4 mg PO TID PRN 02/24/21 03/19/21 History Allergies/Adverse Reactions Allergy/AdvReac Type Severity Reaction Status Date / Time Penicillins Allergy Severe Stops Verified 03/24/21 09:40 Breathing metformin Allergy unknown Verified 03/24/21 09:40 Pertinent History/Comorbid Conditions* Medical History (Updated 03/14/21 @ 20:54 by Yelena Garcia APRN) CHF (congestive heart failure) Diabetes Erectile dysfunction GERD (gastroesophageal reflux disease) Hyperlipidemia Hypertension Incomplete bladder emptying Major depressive disorder Non-insulin dependent type 2 diabetes mellitus ROMEO (obstructive sleep apnea) Peripheral neuropathy Restless leg Surgical History (Updated 11/19/20 @ 00:09 by Kishan Burrows MD) History of appendectomy Family History (Updated 02/24/21 @ 14:42 by Linda Malin RN) ALS (amyotrophic lateral sclerosis) Father Brother Diabetes Grandmother Dementia Mother Lung disease Father Cancer Grandmother Grandfather Son Denies family history of CAD (coronary artery disease) Clotting disorder Chronic kidney disease (CKD) Suicide Anesthesia complication Bleeding disorder Stroke Social History Smoking and tobacco status: never smoked Alcohol intake: never Marital status: Current occupational status: retired Pertinent Exam Findings alert, oriented x 3, clear to auscultation bilaterally, regular rate & rhythm and procedure specific exam findings (Abdominal examination nontender nondistended soft) Recommendations Surgery/Procedure today (EGD and colonoscopy) Other Plans: Plan of care; After thorough history and physical examination and reviewing the chart, plan to perform a diagnostic esophagogastroduodenoscopy and diagnostic colonoscopy with possible biopsy and possible polypectomy. I discussed with the patient in detail the risks,benefits,alternatives and indications.The risk of aspiration, bleeding, soft tissue injury, perforation of the stomach/esophagus/colon and other potential concomitant complications were explained to the patient in details also the potential need for Thoracotomy and or Laproscoy/Laparotomy to repair any related complications including but not limited to colectomy and or Closotomy. The patient understood this well and did agree to proceed. Rationale was carefully and clearly discussed with the patient.Appropriate informed consent have been reviewed and signed Verbal and written Instructions were given to the patient for colonoscopy prep Coding Level of Care Code Acute Central Service Tech for Obed Beck
[2021-03-24 09:46] LABS: Glucose Point of Care 122 mg/dL (70-110)
[2021-03-24 10:35] VITALS: BP 129/78; PULSE 67; RESP 18; TEMP 36.3; O2SAT 99
--- NOTE | 2021-03-24 17:08 | ANE.PACU2 ---
Inpatient post-anesthesia follow up: Airway intact: Yes Vital signs: Temperature 97.3 F Pulse Rate 67 Respiratory Rate 18 Blood Pressure 129/78 Pulse Oximetry 99 Oxygen Delivery Me thod Aerosol Mask Oxygen Flow Rate Fraction of Inspir ed Oxygen Hydration adequate: Yes Nausea and vomiting: No Pain level: 1 Mental status: Baseline
== END 2021-03-24 11:12 | disposition home or self-care (01) ==
PROVIDERS: PCP Family Medicine; Visit Provider Surgery
PROC: 0DJ08ZZ Inspection of Upper Intestinal Tract, Via Natural or Artificial Opening Endoscopic (ICD-10-PCS; CPT 43235; principal; 2021-03-24 10:00)
PROC: 0DJD8ZZ Inspection of Lower Intestinal Tract, Via Natural or Artificial Opening Endoscopic (ICD-10-PCS; CPT 45378; 2021-03-24 10:00)
DX: R19.4 Change in bowel habit (principal); D12.4 Benign neoplasm of descending colon; K29.70 Gastritis, unspecified, without bleeding; R63.0 Anorexia; Z68.34 Body mass index [BMI] 34.0-34.9, adult; I11.0 Hypertensive heart disease with heart failure; I50.9 Heart failure, unspecified; E78.5 Hyperlipidemia, unspecified; G47.33 Obstructive sleep apnea (adult) (pediatric); E11.42 Type 2 diabetes mellitus with diabetic polyneuropathy; Z82.49 Family history of ischemic heart disease and other diseases of the circulatory system; Z83.3 Family history of diabetes mellitus
CPT/HCPCS: 36416; 43235; 45380; 82962; 88305; 96360; J2704; J7030

== ENCOUNTER → 2021-05-18 13:08 | Outpatient (BNVA) | payer OTHER, SELFPAY | PROVIDERS: PCP Family Medicine; Visit Provider Urology | DX: N52.9 Male erectile dysfunction, unspecified (principal); R33.9 Retention of urine, unspecified | CPT/HCPCS: 81003 ==

== ENCOUNTER 2021-05-25 07:32 | Outpatient (CLI) | payer OTHER, SELFPAY ==
--- NOTE | 2021-05-25 07:59 | NMCV_ITS ---
NM noé perf SPECT r/s* [id number] Turner Steven Age: 65 Gender: M : 1955 Exam Date: 05/25/2021 07:59 Ordering Phys: Shankar Barajas MD ([email or web address]) Technologist: JAMISON Hauser Exam Location: [facility] Indications: SHORTNESS OF BREATH STRESS TEST Please see separate stress test report in [facility] for full findings IMAGE PROTOCOL Rest/Stress 1 Lexiscan Day Radiopharmaceutical Dose (mCi) Administration Site Administered by Rest: Tc-99m 10.6 IV JAMISON Reis Sestamibi Stress:Tc-99m 33.0 IV JAMISON Reis Sestamibi Rest: 25-May-2021 60 Discovery 630 Stress: 25-May-2021 30 Discovery 630 0.4mg Lexiscan. Supine position only as patient was unable to lay prone. SPECT RESULTS Technical Quality: Excellent Raw Data Analysis: Normal Image Corrections: No attenuation or motion correction applied Summed Stress Score: 2 Summed Rest Score: 5 Summed Difference Score: 2 PERFUSION FINDINGS Small to moderate area of slightly decreased tracer uptake in the mid and apical inferior wall region, with significant reversibility. FUNCTIONAL RESULTS (calculated via Gated SPECT) Stress Image LV EF (%): 79 Stress EDV (mL):82 TID: 0.68 Stress ESV (mL):17 FUNCTIONAL FINDINGS: Segmental wall motion analysis revealing no gross wall motion normalities IMPRESSIONS 1. Myocardial perfusion may revealing a small to moderate area of slightly decreased tracer uptake in the mid and apical inferior wall region, with some reversibility, suggestive of myocardial scarring with ischemia in the distribution of the right coronary artery. 2. Normal LV ejection fraction of 79%. 3. LV wall motion analysis revealing no gross wall motion abnormalities. 4. Normal LV volume No similar previous studies are available for comparison Dr Shankar Barajas MD [facility] (Electronically Signed) Final Date: 25 May 2021 20:22 S
--- NOTE | 2021-05-25 07:59 | ECG_ITS ---
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 Interpretive Statements NAME OF STUDY: LEXISCAN SESTAMIBI STRESS TEST INDICATION: Chest Pain, PROCEDURE: At the baseline, the EKG revealed normal sinus rhythm with a poor R wave progression. The baseline blood pressure was 122/73 mm Hg with a heart rate of 73 beats/min. Lexiscan was infused over a period of 20 seconds. A total of 0.4 milligrams of Lexiscan was infused. The stress phase was continued for a total of 5 minutes. Heart rate at the end of the stress phase was 78 with a blood pressure 123/73. The EKG at the peak infusion revealed no significant changes. Sestamibi was injected 20 seconds after the Lexiscan infusion. Blood pressure at the end of the recovery phase was 133/88 with a heart rate of 91 per minute. CONCLUSION: 1. No significant EKG changes with the LexiScan infusion 2. No LexiScan induced chest pain or cardiac arrhythmia 3. Normal blood pressure and heart rate response 4. Sestamibi/sestamibi perfusion scan pending; see separate report. Electronically Signed On 06-03-2021 0:23:09 CDT by Shankar Barajas M.D. [email or web address]
[2021-05-25 08:00] VITALS: BMI 31.8
[2021-05-25] MEDS: regadenoson 0.4 Mg/5 ml Syringe IVP (09:46)
[2021-05-25 09:58] VITALS: BP 133/88; PULSE 92
== END 2021-05-25 07:33 | disposition home or self-care (01) ==
PROVIDERS: PCP Family Medicine; Visit Provider Internal Medicine Cardiovascular Disease
DX: R07.9 Chest pain, unspecified (principal); R06.02 Shortness of breath
CPT/HCPCS: 78452; 93017; A9500; J2785

== ENCOUNTER → 2021-08-12 09:30 | Outpatient (BNVA) | payer OTHER, SELFPAY | PROVIDERS: PCP Family Medicine; Visit Provider Internal Medicine Cardiovascular Disease | DX: Z01.818 Encounter for other preprocedural examination (principal); R07.89 Other chest pain; G62.9 Polyneuropathy, unspecified; I11.0 Hypertensive heart disease with heart failure; I50.9 Heart failure, unspecified | CPT/HCPCS: 80048; 81000; 83880; 85025; 85610; 86850; 86900; 87635 ==

== ENCOUNTER 2021-08-17 05:52 | Outpatient (CLI) | payer OTHER, SELFPAY ==
[2021-08-17] VITALS (13 sets, daily range): BP systolic 109–152; BP diastolic 63–91; PULSE 69–105; RESP 11–22; TEMP 36.7; O2SAT 95–99; BMI 31.8
--- NOTE | 2021-08-17 06:00 | XACV_ITS ---
Ht: 188 cm Wt: 112 kg BSA: 2.45 m2 Gender: Male : 1955 Any Known Allergies: Other Exam Priority: Routine Procedure(s): Procedure Description: Diagnostic procedure Procedure Description: Left Heart Catheterization Procedure Description: Left ventriculography Procedure Description: Coronary Angiography Karl COBB; Diagnostic Cath Status: Elective Diagnostic Findings * No disease noted in the Left Main, Left Anterior Descending, Right, or Circumflex coronary arteries. * Coronary angiography shows right dominance. * The left main is a medium to large caliber short vessel with no significant stenotic lesions. * The left hand descending artery is a medium caliber vessel which appears to wrap around the LV apex minimally. The mid LAD was found to have diffuse intimal irregularities. Right after the second diagonal branch, there was a 40% segmental narrowing. There is an area of extrinsic compression in the distal LAD suggesting myocardial bridge. * The circumflex artery is a medium to large caliber dominant vessel which was found to have no significant stenotic lesions. * The intermedius artery is a small to medium caliber vessel with diffuse intimal regularities. No significant stenotic lesions. * The right coronary artery is a small to medium caliber and nondominant vessel with 30% eccentric narrowing proximally. No significant stenotic lesions. Conclusions 1. 66-year-old white male with multiple risk factors for coronary disease, presenting with chest pain and shortness of breath. Myocardial perfusion imaging revealed a small area of reversible defect suggesting ischemia in distribution of the right coronary artery. In view of the ongoing and worsening symptoms, in order to further evaluate his coronary status, a cardiac catheterization was recommended. Patient underwent left heart catheterization with left and right coronary angiogram and LV angiogram. The findings are as follows.. 2. Mild to moderate disease in the left anterior descending artery. 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 Nondominant right coronary artery with a mild disease. No significant lesions in the left main or circumflex artery. Normal LV ejection fraction of 60%. Elevated LVEDP of 23 mmHg. Recommendations * Continue current medical management and risk factor modification. Diagnostic RX Recommendation: medical therapy and/or counseling LV EDP: 23 mmHg Ventriculography Ejection Fraction: 55.0 % Left Ventriculography Findings: * The LV gram was performed in the EISENBERG projection. LV cavity appears to be normal size. There is no significant mitral valve prolapse or mitral regurgitation. No filling defects are noted. LV ejection fraction was around 60%. LVEDP was 23 mmHg. Pressures Phase:Rest AO : 99 / 67 ( 82 ) @ 5:22:00 AM 89 / 62 ( 75 ) @ 5:23:00 AM 125 / 77 ( 101 ) @ 5:37:00 AM 129 / 81 ( 104 ) @ 5:37:00 AM LV : 123 / 8 / 22 @ 5:35:00 AM 123 / 10 / 24 @ 5:36:00 AM 123 / 9 / 26 @ 5:37:00 AM Valves Phase:DefaultPhase AV : 0.0 @ 7:42:41 AM AV Mean Gradient: 0.0 @ 7:42:41 AM Clinical Evaluation EBL: 5mL-10mL Procedural Details Procedure Consent Obtained. Current Diagnosis : Chest Pain. Pre-Procedure Time Out. Identified patient by full name and date of as verbalized by the patient/guarantor. Does the consent match the physician's order: Yes. Accurate & Complete Informed Consent: Yes. Inpatient/Outpatient History & Physical on Chart: Yes. If H&P is completed, is and addenduem needed: No; If yes, is the addendum complete: N/A. Visualize and Verify Site with Patient/Guarantor: N/A. Relevant Radiology Images available: Yes. Pre-op teaching completed and patient verbalized understanding. The risks, benefits, and alternatives of sedation and/or procedure were discussed by physician. The patient agrees to continue. Procedure started. [facility] Clinical Fraility Score: 3: Managing Well. Raw Sampler Indications: Worsening Angina. Chest Pain Symptom Assessment: Atypical Angina. Correct patient, site and procedure confirmed by cath team. Current diagnosis: Chest Pain. PERRLA. Strong, equal hand production proofreader bilaterally. Lungs clear x 5 lobes. A 20 gauge IV was started in the right forearm using aseptic technique. IV Fluids: 0.9% NaCl at KVO. 0 mL infused prior to finishing lab technician. Pre Procedural Pulses: bilateral dorsalis pedis was 3+. Pre Procedural Pulses: bilateral posterior tibial was 3+. Pre Procedural Pulses: right radial was 3+. Oxygen started at 2liters/min via nasal canula. right groin was prepped with chloroprep then draped in the usual sterile fashion. right radial was prepped with chloroprep then draped in the usual sterile fashion. Physician notified. Baseline sample Acquired. HR: 76 BPM. Physician arrived. Physician scrubbed in. Immediate Pre-Procedure Time Out. Correct Patient: Yes; Correct Procedure: Yes; Correct Site: Yes; Correct Patient Position: Yes; Correct Supplies: Yes; Dried Flammable Prep: Yes; Blood Products Available: N/A;. Lidocaine 1% infiltrated to the right radial. Arterial access obtained. A 5 [place] catheter in over wire. Oxygen turned up to 4 liters. Multiple views taken of left coronary artery. Catheter removed over the exchange wire. A 5 sri lankan JR4 catheter in over wire. Multiple views taken of right coronary artery. Catheter removed over the exchange wire. EDP Sample taken: LV 123/8,22; HR: 72 BPM; SpO2: 99%. LV gram performed in EISENBERG @ 10 mL/second for a total of 30 mL. EDP Sample taken: LV 123/10,24; HR: 70 BPM; SpO2: 99%. Pullback taken: LV 123/9,26; AO 125/77(101); Mean: 0mmHg, Peak to Peak: 0mmHg, SEP: 6sec/min; HR: 82 BPM; SpO2: 97%. Catheter removed over the exchange wire. Physician scrubbed out. A TR Band was successful obtaining hemostatsis at the Right Radial artery insertion site. Post Procedure: Pulses reassessed and unchanged. PERRLA. Strong, equal hand production proofreader bilaterally. No VTE prophylaxis required. Medication's Wasted: Lidocaine 1% = 18 mL. Medication's Wasted: Nitro = 49.8 mg. Medication's Wasted: Heparin = 1000 units. Total IV fluids: 225 mL. Contrast type used: Omnipaque 300 mgI/mL, 500 mL bottle. Complications: None. Post-op diagnosis: Mild-Mod CAD, LV Dysfunction. Estimated blood loss: 5mL-10mL. Responsiveness - Normal response to verbal stimuli; alert and oriented, PERRLA. Airway - Unaffected, no intervention required; spontaneous ventilation. Circulation: W/N/L, pulses unchanged. Nausea/Vomiting: No. Procedure completed. Vital chart was stopped. Patient transferred by wheelchair to CPRU. Access Site Site: Right Radial artery Sheath Size: 6 Fr Hemostasis Method: TR Band Hemostasis Success: Successful Procedure Medications Start: 7:03 AM Stop: 7:03 AM Medication: Fentanyl Amount: 50 mcg Route: I.V. Start: 7:10 AM Stop: 7:10 AM Medication: Versed Amount: 1 mg Route: I.V. Start: 7:16 AM Stop: 7:16 AM Medication: Versed Amount: 1 mg Route: I.V. Start: 7:19 AM Stop: 7:19 AM Medication: Verapamil Amount: 5 mg Route: I.A. Start: 7:19 AM Stop: 7:19 AM Medication: Nitrogylcerin Amount: 200 mcg Route: I.A. Start: 7:19 AM Stop: 7:19 AM Medication: 0.9% Saline Amount: 250 ml Route: I.V. bolus Start: 7:20 AM Stop: 7:20 AM Medication: Fentanyl Amount: 50 mcg Route: I.V. Start: 7:21 AM Stop: 7:21 AM Medication: Heparin Amount: 5000 units Route: I.V. I, the attending physician, have reviewed and verified all procedure medications. Yes, all medications given per verbal order History/Risk Factors Hypertension: Yes Dyslipidemia: Yes Peripheral Arterial Disease (PAD): No Myocardial Infarction (MT): No Obesity: No Renal Disease: No Prior Interventions PCI: No CABG: No Valve Surgery: No Report Signatures Finalized by Dr hSankar Barajas MD [facility] on 08/17/2021 02:22 PM
[2021-08-17] MEDS: diphenhydrAMINE 50 mg Capsule PO (07:07)
--- NOTE | 2021-08-17 07:08 | W.PM.OPSUD ---
Surgery/Procedure H&P Update DATE OF PROCEDURE: August 17, 2021 DATE H&P PERFORMED: 08/02/21 H&P UPDATE INFORMATION: I have reviewed H&P completed within last 30 days, I have examined patient prior to procedure and No changes to prior documentation PREOP DIAGNOSIS: ashd PRIMARY INDICATION FOR PROCEDURE: Abnormal MPI/multiple risk factors PLANNED PROCEDURE: Operation Date: 08/17/21 07:00 Proposed Procedures p Cardiac Catheterization(Left) - Shankar Barajas MD PATIENT REASSESSED PRIOR TO SEDATION, WITH NO CHANGE NOTED: Yes PHYSICAL EXAM: alert, oriented x 3, clear to auscultation bilaterally and regular rate & rhythm AIRWAY EVAL/ANESTHESIA PLAN: normal airway, see other exam findings, ASA III, Monitored Anesthesia, Local Anesthesia, Risks, benefits & alternatives of sedation and/or procedure discussed and Patient agrees to continue as planned
--- NOTE | 2021-08-17 10:27 | PC.NURSE ---
Band completely down with no redness or swelling noted. Band left in place and deflated.
== END 2021-08-17 10:00 | disposition home or self-care (01) ==
PROVIDERS: PCP Family Medicine; Visit Provider Internal Medicine Cardiovascular Disease
DX: R07.9 Chest pain, unspecified (principal); I50.9 Heart failure, unspecified; E11.9 Type 2 diabetes mellitus without complications; E78.5 Hyperlipidemia, unspecified; I11.0 Hypertensive heart disease with heart failure; I25.10 Atherosclerotic heart disease of native coronary artery without angina pectoris
CPT/HCPCS: 36415; 93452; C1769; C1887; C1894; J1644; J2250; J3010; J3490; J7030; Q0163; Q9967

== ENCOUNTER → 2021-08-24 15:05 | Outpatient (BNVA) | payer OTHER, SELFPAY | PROVIDERS: PCP Family Medicine; Visit Provider Nurse Practitioner Family | DX: I11.0 Hypertensive heart disease with heart failure (principal); I50.9 Heart failure, unspecified; I25.10 Atherosclerotic heart disease of native coronary artery without angina pectoris | CPT/HCPCS: 80048 ==

== ENCOUNTER → 2021-09-16 11:00 | Outpatient (BNVA) | payer OTHER, SELFPAY | PROVIDERS: PCP Family Medicine; Visit Provider Internal Medicine Cardiovascular Disease | DX: I11.0 Hypertensive heart disease with heart failure (principal); I50.33 Acute on chronic diastolic (congestive) heart failure; R06.02 Shortness of breath; R07.89 Other chest pain; G47.33 Obstructive sleep apnea (adult) (pediatric); E11.9 Type 2 diabetes mellitus without complications; I25.10 Atherosclerotic heart disease of native coronary artery without angina pectoris | CPT/HCPCS: 80048; 83880 ==

== ENCOUNTER → 2021-11-17 12:59 | Outpatient (BNVA) | payer OTHER, SELFPAY | PROVIDERS: PCP Family Medicine; Visit Provider Nurse Practitioner Family | DX: I50.9 Heart failure, unspecified (principal); I87.2 Venous insufficiency (chronic) (peripheral); R06.09 Other forms of dyspnea; I11.0 Hypertensive heart disease with heart failure | CPT/HCPCS: 80048; 83880; 99214 ==

== ENCOUNTER 2021-12-22 08:40 | Outpatient (CLI) | payer OTHER, SELFPAY ==
--- NOTE | 2021-12-22 10:15 | USCV_ITS ---
Turner Steven Age: 66 Gender: M : 1955 Exam Date: 12/22/2021 08:55 Ordering Phys: Candace Braxton Technologist: ENZO Exam Location: [facility] Indication: HISTORY: SEVERE restless leg syndrome, chronic x 10 yrs. No hx DVT. No erythema. Mild, bilateral ankle edema. PROCEDURES: Venous duplex imaging was performed in bilateral lower extremities in the 45 degree reverse Trendelenberg position with Valsalva maneuver and release to elicit venous insufficiency, if present. The following venous structures were evaluated: common femoral vein, profunda vein, proximal portion of the greater saphenous vein, superficial femoral vein, and the popliteal vein. In addition, the posterior tibial and peroneal veins were evaluated. Bilaterally, the common femoral, superficial femoral, profunda femoral, popliteal, posterior tibial, greater saphenous veins, and the peroneal trunk were identified and interrogated in the standard fashion. These veins were found to be easily compressible with spontaneous blood flow. No evidence of significant insufficiency or thrombus noted. Serial compression, augmentation maneuvers, and spectral Doppler flow evaluation were performed and were normal. An evaluation for venous insufficiency was also completed in the Greater saphenous and Lesser saphenous veins, bilaterally. No significant insufficiency is noted. FINDINGS: The veins were found to be easily compressible with spontaneous blood flow. Non pulsatile flow pattern. The reflux time square less than 1000 ms in the deep vein and less than 500 ms in the superficial veins CONCLUSIONS No evidence of DVT in the above-mentioned identifiable veins. No significant venous reflux in the superficial or deep veins, mentioned above Dr Shankar Barajas MD [facility] (Electronically Signed) Final Date: 27 December 2021 10:19 S
== END 2021-12-22 08:41 | disposition home or self-care (01) ==
LOC: RAD 08:41
PROVIDERS: PCP Family Medicine; Visit Provider Nurse Practitioner Family
DX: R60.0 Localized edema (principal)
CPT/HCPCS: 93970

== ENCOUNTER → 2022-03-10 11:59 | Outpatient (BNVA) | payer OTHER, SELFPAY | PROVIDERS: PCP Family Medicine; Visit Provider Podiatrist Foot & Ankle Surgery | DX: M20.41 Other hammer toe(s) (acquired), right foot (principal); E11.8 Type 2 diabetes mellitus with unspecified complications; L60.3 Nail dystrophy; M77.40 Metatarsalgia, unspecified foot; M20.42 Other hammer toe(s) (acquired), left foot; M21.6X9 Other acquired deformities of unspecified foot; E11.21 Type 2 diabetes mellitus with diabetic nephropathy | CPT/HCPCS: 99213; 99214 ==

== ENCOUNTER → 2022-04-05 12:21 | Outpatient (BNVA) | payer OTHER, SELFPAY | PROVIDERS: PCP Family Medicine; Visit Provider Internal Medicine Cardiovascular Disease | DX: I25.10 Atherosclerotic heart disease of native coronary artery without angina pectoris (principal); R07.89 Other chest pain; I11.0 Hypertensive heart disease with heart failure; I50.9 Heart failure, unspecified; G47.33 Obstructive sleep apnea (adult) (pediatric); Z79.84 Long term (current) use of oral hypoglycemic drugs; E11.9 Type 2 diabetes mellitus without complications; E78.2 Mixed hyperlipidemia | CPT/HCPCS: 99214 ==

== ENCOUNTER → 2022-04-11 12:36 | Outpatient (BNVA) | payer OTHER, SELFPAY | PROVIDERS: PCP Family Medicine; Visit Provider Urology | DX: R33.9 Retention of urine, unspecified (principal); N52.1 Erectile dysfunction due to diseases classified elsewhere | CPT/HCPCS: 99213 ==

== ENCOUNTER 2022-10-12 14:01 | Emergency (ER) | payer OTHER, SELFPAY ==
[2022-10-12 14:03] VITALS: BP 131/79; PULSE 68; RESP 16; TEMP 36.9; O2SAT 96
--- NOTE | 2022-10-12 14:14 | US_ITS ---
WS: [id number] TESTICULAR ULTRASOUND HISTORY: left testicle pain COMPARISON: None available. TECHNIQUE: Real-time and color Doppler imaging or utilized to perform a testicular ultrasound. Right testicle: 4.8 cm x 3.5 cm x 2.8 cm. Normal size and echogenicity. No mass or torsion. Normal color Doppler is present throughout. Systolic and diastolic velocities are both present. No significant hydrocele. Right epididymis: Normal epididymis with no increased vascularity. Left testicle: 4.5 cm x 3.3 cm x 2.6 cm. Normal size and echogenicity. No mass or torsion. Normal color Doppler is present throughout. Systolic and diastolic velocities are both present. Small minimally complex hydrocele. Left epididymis: Normal epididymis with no increased vascularity. Increased fat along the LEFT inguinal canal with no increased vascularity or edema. US/US scrotum [id number] IMPRESSION: 1. No testicular mass or torsion identified. 2. Small minimally complex LEFT hydrocele. 3. Increased fat along the LEFT inguinal canal is probably related to a fat-co ntaining inguinal hernia. No acute inflammatory changes are noted.
--- NOTE | 2022-10-12 14:32 | ED_ITS ---
HPI - Male Genitourinary General: Chief complaint: Urogenital-Male Stated complaint: testicular pain Time Seen by Provider: 10/12/22 14:14 History of Present Illness: Patient is a 67-year-old male comes to the ED with left testicle pain. Patient has been having symptoms for the past 2 months. He rates his pain currently an 8 out of 10. Any pressure on the left testicle causes worsening pain. Denies any testicular swelling, erythema or warmth. Denies any penile lesions or penile discharge. Denies any abdominal pain, fevers, chills, nausea/vomiting, change in bladder or bowel symptoms. Patient does have to straight cath and has been doing that before the symptoms. Associated symptoms: Deny dysuria, hematuria, nausea or vomiting Review of Systems Const: Denies: fever(s), chills or fatigue Eyes: Denies: change in vision or eye discomfort ENMT: Denies: throat pain, odynophagia, nasal discharge or nasal congestion Card: Denies: chest pain, palpitations, edema, swelling of feet/ankles, dyspnea on exertion or orthopnea Resp: Denies: dyspnea, productive cough or non-productive cough GI: Denies: abdominal pain, nausea, vomiting, diarrhea, constipation or hematochezia : Reports: testicular pain (Left testicle); Denies: flank pain, difficulty urinating, dysuria or hematuria Musc: Denies: neck pain, back pain or extremity swelling Skin/Breast: Denies: rash or new lesions Neuro: Denies: headache(s), numbness in extremities or weakness in extremities PFS ED PFSH: Medical History Atherosclerosis of coronary artery Benign prostatic hyperplasia CHF (congestive heart failure) Colon polyp Conjunctival hemorrhage Degenerative arthritis of cervical spine Diabetes Diabetic neuropathy Edema Erectile dysfunction GERD (gastroesophageal reflux disease) Gross hematuria Heart failure Hyperlipidemia Hypertension Hypothyroidism Incomplete bladder emptying Intervertebral disc syndrome Low back pain Major depressive disorder Migraine Myocardial bridge Non-insulin dependent type 2 diabetes mellitus ROMEO (obstructive sleep apnea) Peripheral neuropathy Restless leg Urinary retention Vitamin B12 deficiency anemia Surgical History History of appendectomy History of colonoscopy with polypectomy History of esophagogastroduodenoscopy (EGD) Hx of umbilical hernia repair Family History Father , AT AGE 77 ALS (amyotrophic lateral sclerosis) Lung disease Brother ALS (amyotrophic lateral sclerosis) Grandmother Cancer Diabetes Grandfather Cancer Son Cancer Mother , AT AGE 83 Dementia Social History Smoking and tobacco status: never smoked Alcohol intake: never Marital status: Current occupational status: retired History of recent travel: No Physical Exam Const: COMMON NORMALS: no acute distress, patient oriented x3 and alert GENERAL APPEARANCE: cooperative and comfortable HENMT: COMMON NORMALS: normocephalic HEAD & SCALP: normocephalic MOUTH: Normal oral and palatal mucosa present THROAT: posterior oropharynx normal and uvula midline Neck/C-Spine: COMMON NORMALS: supple GENERAL: Yes normal visual inspection Resp: COMMON NORMALS: normal respiratory effort, No retractions, No use of accessory muscles and clear to auscultation bilaterally AUSCULTATION: clear to auscultation bilaterally Cardio: COMMON NORMALS: regular rate, regular rhythm, S1 normal heart sound present, S2 normal heart sound present, No gallops present (Cardio), No clicks present (Cardio), No murmurs present (Cardio) and Peripheral pulses 2+ throughout RATE: regular rate RHYTHM: regular rhythm HEART SOUNDS: S1 normal heart sound present and S2 normal heart sound present PERIPHERAL PULSES: Peripheral pulses 2+ throughout GI: COMMON NORMALS: Normal to inspection, nondistended, normoactive bowel sounds present, Soft to palpation, non-tender and no masses PALPATION: Yes Soft to palpation : COMMON NORMALS: Yes no CVA tenderness BLADDER/KIDNEY EXAM: Yes no CVA tenderness MALE GROIN/PERINEUM EXAM: No Genital lesions present PENIS: normal penis, circumcised, not erythematous, no masses, no papules, no vesicles, no swelling and No Genital lesions present SCROTUM: Yes testes descended bilaterally, Yes Scrotal tenderness present (Left testicle), No erythematous, No scrotal swelling, No Scrotal lesions present and No scrotal mass TESTES: Yes testicular lie normal, No Enlarged testicle(s) present and Yes testicular tenderness Testicular tenderness laterality: left Back/Pelvis: COMMON NORMALS: no CVA tenderness Extremity: COMMON NORMALS: normal to inspection Neuro: COMMON NORMALS: patient oriented x3 SENSORIUM/ORIENTATION: Yes alert GAIT: Yes Normal gait present Skin: GENERAL SKIN EXAM: dry skin Course Vital Signs: Vital signs: Vital Signs Temperature 98.5 F 10/12/22 14:03 Pulse Rate 68 10/12/22 14:03 Respiratory Rate 18 10/12/22 14:36 Blood Pressure 131/79 10/12/22 14:03 Pulse Oximetry 96 10/12/22 14:03 [facility] - Male Medical Decision Making Patient is a 67-year-old male comes to the ED with left testicle pain. Patient has been having symptoms for the past 2 months. He rates his pain currently an 8 out of 10. Any pressure on the left testicle causes worsening pain. Denies any testicular swelling, erythema or warmth. Denies any penile lesions or penile discharge. Denies any abdominal pain, fevers, chills, nausea/vomiting, change in bladder or bowel symptoms. Vitals are stable. Patient appears nontoxic and in no acute distress or pain. He has some mild left testicle tenderness but rest of exam is benign. Labs are unremarkable. UA shows no signs of infection. Ultrasound of scrotum shows left hydrocele and fat- containing left umbilical hernia but no other acute findings noted. I placed an order with case management for patient referred to general surgery for the inguinal hernia. He was diagnosed with a left hydrocele inguinal hernia and stable for discharge home. Told to follow-up with PCP within the next week for reevaluation. Return to ED precautions given. Patient understood and agreed with plan. Lab Data I reviewed the patient's lab results. 10/12/22 15:35 10/12/22 15:35 Radiology Impressions Scrotum Ultrasound 10/12/22 14:14 IMPRESSION: 1. No testicular mass or torsion identified. 2. Small minimally complex LEFT hydrocele. 3. Increased fat along the LEFT inguinal canal is probably related to a fat- containing inguinal hernia. No acute inflammatory changes are noted. Laboratory Results WBC 7.5 10^3/uL (4.0-10.0) 10/12/22 15:35 RBC 4.68 10^6/uL (4.1-5.3) 10/12/22 15:35 Hgb 15.1 g/dL (11.7-16.6) 10/12/22 15:35 Hct 44.1 % (42.0-52.0) 10/12/22 15:35 MCV 94.2 fl (80-94) H 10/12/22 15:35 MCH 32.3 pg (28.0-34.0) 10/12/22 15:35 MCHC 34.2 g/dL (30.0-36.0) 10/12/22 15:35 RDW 13.0 % (12.1-15.1) 10/12/22 15:35 Plt Count 242 10^3/cmm (130-400) 10/12/22 15:35 MPV 10.2 fL (7.4-10.4) 10/12/22 15:35 Neut % (Auto) 64.4 % 10/12/22 15:35 Lymph % (Auto) 26.3 % 10/12/22 15:35 Jennings % (Auto) 7.5 % 10/12/22 15:35 Eos % (Auto) 0.8 % 10/12/22 15:35 Baso % (Auto) 0.7 % 10/12/22 15:35 Neut # (Auto) 4.83 10^3/uL (1.8-7.7) 10/12/22 15:35 Lymph # (Auto) 2.0 10^3/uL (0.8-4.8) 10/12/22 15:35 Jennings # (Auto) 0.6 10^3/uL (0.2-0.9) 10/12/22 15:35 Eos # (Auto) 0.1 10^3/uL (0.0-0.8) 10/12/22 15:35 Baso # (Auto) 0.1 10^3/uL (0.0-0.1) 10/12/22 15:35 Nucleated RBC % (auto) 0 % 10/12/22 15:35 Nucleated RBCs # 0.0 /100WBC 10/12/22 15:35 Sodium 140 mmol/L (136-145) 10/12/22 15:35 Potassium 3.7 mmol/L (3.5-5.1) 10/12/22 15:35 Chloride 98 mmol/L (98-107) 10/12/22 15:35 Carbon Dioxide 32 mmol/L (22-29) H 10/12/22 15:35 Anion Gap 13.7 (5-19) 10/12/22 15:35 BUN 13 mg/dL (8-23) 10/12/22 15:35 Creatinine 0.9 mg/dL (0.7-1.2) 10/12/22 15:35 GFR Calculation 84.2 mL/min (90-130) L 10/12/22 15:35 Glucose 166 mg/dL (65-115) H 10/12/22 15:35 Calculated Osmolality 294 mOsm/kg (285-295) 10/12/22 15:35 Calcium 9.3 mg/dL (8.5-10.5) 10/12/22 15:35 Total Bilirubin 0.4 mg/dL (0.15-1.2) 10/12/22 15:35 AST 40 U/L (0-40) 10/12/22 15:35 ALT 88 U/L (0-41) H 10/12/22 15:35 Alkaline Phosphatase 366 U/L (40-130) H 10/12/22 15:35 Total Protein 7.1 g/dL (6.6-8.7) 10/12/22 15:35 Albumin 4.3 g/dL (3.5-5.2) 10/12/22 15:35 Globulin 2.8 g/dL (1.3-4.6) 10/12/22 15:35 Urine Color Yellow (Yellow) 10/12/22 14:30 Urine Appearance Clear (CLEAR) 10/12/22 14:30 Urine pH 7 (5-7) 10/12/22 14:30 Ur Specific [place] 1.005 (1.005-1.030) 10/12/22 14:30 Urine Protein Neg (Negative) 10/12/22 14:30 Urine Glucose (UA) 4+ (Normal) H 10/12/22 14:30 Urine Ketones 1+ (Negative) H 10/12/22 14:30 Urine Blood Neg (Negative) 10/12/22 14:30 Urine Nitrate Negative (Negative) 10/12/22 14:30 Urine Bilirubin Neg (Negative) 10/12/22 14:30 Urine Urobilinogen Neg mg/dL (Negative) 10/12/22 14:30 Ur Leukocyte Esterase Negative (Negative) 10/12/22 14:30 Discharge Plan Discharge Patient Disposition: Home Clinical Impression: Left hydrocele, Inguinal hernia, left Condition: Stable Prescriptions: No Action pramipexole 0.125 mg tablet 0.125 mg PO DAILY (DME) Costum Functional Molded Orthotics See Rx Instructions .Route .MEDSUPPLY Qty: 1 0RF Rx Instructions: As directed [facility] P [facility] carbidopa-levodopa 25-100 mg tablet 2 tab PO BEDTIME omeprazole 20 mg capsule,delayed release(DR/EC) 20 mg PO QAM polyvinyl alcohol [Artificial Tears (polyvin alc)] 1.4 % drops 1 drp ophthalmic (eye) DAILY aspirin [Adult Aspirin Regimen] 81 mg tablet,delayed release (DR/EC) 81 mg PO DAILY Hold Instructions: Resume on 03/27/21. pioglitazone 15 mg tablet 15 mg PO DAILY cholecalciferol (vitamin D3) 25 mcg (1,000 unit) capsule 25 mcg PO DAILY cyanocobalamin (vitamin B-12) 1,000 mcg tablet 1,000 mcg PO DAILY pregabalin [Lyrica] 150 mg capsule 150 mg PO TID potassium chloride 20 mEq tablet extended release 20 meq PO DAILY ropinirole 2 mg tablet 4 mg PO BID tamsulosin 0.4 mg capsule 0.8 mg PO DAILY Qty: 60 3RF alogliptin 25 mg tablet 25 mg PO DAILY gabapentin 600 mg tablet 600 mg PO BID Rx Instructions: PT TAKES 1 TAB IN A.M. AND 2 TAB AT HS furosemide 40 mg tablet 60 mg PO DAILY Qty: 90 3RF spironolactone 25 mg tablet 25 mg PO DAILY Qty: 90 3RF nitroglycerin 2.5 mg capsule, extended release 2.5 mg PO BID Qty: 60 5RF Rx Instructions: allow nitrate-free interval of approx. 10-12 hrs per 24-hour period nitroglycerin 0.4 mg tablet, sublingual 0.4 mg sublingual Q5M PRN (Reason: chest pain) Qty: 50 3RF Rx Instructions: until response; do not exceed 3 doses per episode metoprolol tartrate 25 mg tablet 25 mg PO BID Qty: 180 3RF carbamazepine [Tegretol XR] 200 mg Tablet Extended Release 12 Hr 200 mg PO BID Discharge Orders: Discharge ED (Routine); Ordered 10/12/22 Ordered By: Turner Perez Referrals: Cynthia Rowe MD [Primary Care Provider] - Discharge Diet: Regular Discharge Activity: Increase activity as tolerated Patient Instructions: Hydrocele (ED), Inguinal Hernia (ED), Testicle Pain (ED), Opioid Safety Activity Restrictions/Additional Instructions: Follow-up with medical provider as directed in the next 3 to 5 days for reevaluation. Case management to begin taking neck several days to set up an appointment with general surgery for follow-up on inguinal hernia. Take medications as prescribed. Return to the ER or your medical provider if condition worsens. Please read and understand discharge instructions. Thank you for choosing [facility] for your healthcare needs today. Please realize this is an emergency room and that we are providing you with a medical screening exam and this may not be complete and all inclusive of all the testing and or work up that you may need to determine your ailment or severity of your illness. It is very important that you follow up as instructed or that you return to the Emergency Department should you have concerns or if your condition changes or worsens in any way. Coding Level of Care Code ED Certified Medical Records Coder for Obed Beck Exam Comprehensive
[2022-10-12 14:36] VITALS: RESP 18
[2022-10-12] MEDS: oxyCODONE-APAP 5-325 mg Tablet 1 TAB PO (14:36)
[2022-10-12 14:43] LABS: Add Urine Microscopic? NO; Charge for UA Resulting for Rev
[2022-10-12 14:46] LABS: Bilirubin Urine Neg (Negative); Blood Urine Neg (Negative); Glucose Urine UA 4+ (Normal); Ketones Urine 1+ (Negative); Leukocyte Esterase Urine Negative (Negative); Nitrate Urine Negative (Negative); Protein Urine Neg (Negative); Specific Gravity, Urine 1.005 (1.005-1.030); Urine Appearance Clear (CLEAR); Urine Color Yellow (Yellow); Urobilinogen Urine Neg (Negative); pH Urine 7 (5-7)
[2022-10-12 15:45] LABS: Basophils # 0.1 10^3/uL (0.0-0.1); Basophils % 0.7 %; Eosinophils # 0.1 10^3/uL (0.0-0.8); Eosinophils % 0.8 %; Hematocrit 44.1 % (42.0-52.0); Hemoglobin 15.1 g/dL (11.7-16.6); Lymphocytes % 26.3 %; Mean Corpuscular HGB Conc 34.2 g/dL (30.0-36.0); Mean Corpuscular Hemoglobin 32.3 pg (28.0-34.0); Mean Corpuscular Volume 94.2 fl (80-94); Mean Platelet Volume 10.2 fL (7.4-10.4); Monocytes # 0.6 10^3/uL (0.2-0.9); Monocytes % 7.5 %; Neutrophils # 4.83 10^3/uL (1.8-7.7); Neutrophils % 64.4 %; Nucleated Red Blood Cells % 0 %; Platelet Count 242 10^3/cmm (130-400); Red Blood Count 4.68 10^6/uL (4.1-5.3); White Blood Count 7.5 10^3/uL (4.0-10.0)
[2022-10-12 16:04] LABS: Alanine Aminotransferase 88 U/L (0-41); Albumin Level 4.3 g/dL (3.5-5.2); Alkaline Phosphatase 366 U/L (40-130); Anion Gap 13.7 (5-19); Aspartate Amino Transferase 40 U/L (0-40); Blood Urea Nitrogen 13 mg/dL (8-23); Calcium 9.3 mg/dL (8.5-10.5); Carbon Dioxide 32 mmol/L (22-29); Chloride 98 mmol/L (98-107); Globulin 2.8 g/dL (1.3-4.6); Glomerular Filtration Rate 84.2 mL/min (90-130); Glucose 166 mg/dL (65-115); Osmolality Calculated 294 mOsm/kg (285-295); Potassium 3.7 mmol/L (3.5-5.1); Sodium 140 mmol/L (136-145); Total Bilirubin 0.4 mg/dL (0.15-1.2); Total Protein 7.1 g/dL (6.6-8.7)
--- NOTE | 2022-10-13 10:23 | DCPLANNER ---
Addendum entered by Flavia De Los Santos 10/20/22 13:16: channel marketing manager called [facility] surgery to confirm that facility received patients information. channel marketing manager was told that facility did receive patients information, that information will be reviewed, and clinic will call patient with appointment information. Addendum entered by Flavia De Los Santos 10/19/22 14:53: channel marketing manager received the following message from the general surgery clinic regarding follow up appointment: [facility] please send elsewher channel marketing manager spoke with patients , explained the Dr. Martinez is not in network with [place]. Patient would need to be referred elsewhere. channel marketing manager asked patients if patient would want referral to be sent to [facility] or [facility] - patients stated that patient would like to be referred to [facility]. channel marketing manager sent patients information to [facility] General Surgery. Patients information will be reviewed. Clinic will call patient with appointment information. phone number to clinic - [phone] Fax number to clinic - [phone] Original Note: channel marketing manager had message to schedule a follow up appointment for patient with general surgery. channel marketing manager sent patients information to the front office staff at general surgery. Patients information will be printed and reviewed. Clinic will call patient with appointment information.
== END 2022-10-12 16:19 | disposition home or self-care (01) ==
PROVIDERS: Emergency Provider Physician Assistant; PCP Family Medicine
DX: N43.3 Hydrocele, unspecified (principal); K40.90 Unilateral inguinal hernia, without obstruction or gangrene, not specified as recurrent; I25.10 Atherosclerotic heart disease of native coronary artery without angina pectoris; I11.0 Hypertensive heart disease with heart failure; I50.9 Heart failure, unspecified; E11.9 Type 2 diabetes mellitus without complications; E78.5 Hyperlipidemia, unspecified
CPT/HCPCS: 76870; 80053; 81003; 85025; 99283

== ENCOUNTER → 2022-10-20 13:47 | Outpatient (BNVA) | payer OTHER, SELFPAY | PROVIDERS: PCP Family Medicine; Visit Provider Urology | DX: N50.819 Testicular pain, unspecified (principal); G62.9 Polyneuropathy, unspecified; R33.9 Retention of urine, unspecified | CPT/HCPCS: 51798; 99213 ==

== ENCOUNTER 2022-11-22 11:14 | Emergency (ER) | payer OTHER, SELFPAY ==
[2022-11-22 11:23] VITALS: BP 134/90; PULSE 72; RESP 18; TEMP 36.5; O2SAT 99
--- NOTE | 2022-11-22 12:06 | XRR_ITS ---
PROCEDURE INFORMATION: Exam: XR Left Knee Exam date and time: 11/22/2022 12:23 PM Age: 67 years old Clinical indication: Pain and injury or trauma; Fall; Blunt trauma; Knee; Left; Additional info: Knee pain after fall TECHNIQUE: Imaging protocol: Radiologic exam of the left knee. Views: 3 views. COMPARISON: No relevant prior studies available. FINDINGS: Bones/joints: Narrowing of the patellofemoral compartment and the medial compartment is seen consistent with mild osteoarthritis Soft tissues: Unremarkable soft tissues XR/XR knee LT 3V* [id number] IMPRESSION: 1. Mild osteoarthritis 2. Negative for acute bony abnormality 3. Otherwise No acute findings.
--- NOTE | 2022-11-22 12:06 | XRR_ITS ---
PROCEDURE INFORMATION: Exam: XR Lumbosacral Spine Exam date and time: 11/22/2022 12:27 PM Age: 67 years old Clinical indication: Pain and injury or trauma; Fall; Blunt trauma (contusions or hematomas); Low back pain; Additional info: Low back pain after fall TECHNIQUE: Imaging protocol: Radiologic exam of the lumbosacral spine. Views: 2 or 3 views. COMPARISON: DX XR lumbar spine 2-3V* [id number] 03/20/2019 11:56 AM FINDINGS: Bones/joints: There is osteoarthritis with vacuum phenomena and joint space narrowing at the L4-L5 level. Narrowing and bone spurs are seen at the L5-S1 level. These findings are consistent with severe osteoarthritis No acute fracture. Normal alignment. Soft tissues: Unremarkable. XR/XR lumbar spine 2-3V* [id number] IMPRESSION: Severe osteoarthritis lower lumbar spine Otherwise No acute findings.
--- NOTE | 2022-11-22 12:07 | W.ED.BACK ---
HPI - Back Pain/Injury General: Chief Complaint: Back Pain/Injury Stated Complaint: Fall, Back pain Time Seen by Provider: 11/22/22 11:57 History of Present Illness: Patient is a 67-year-old male comes to the ED with back pain. Patient has a history of chronic back pain and a week ago he received some injections in his lower back by Dr. Sue Seay. 24 hours after he got those injections he had a fall and he fell backwards and landed on his lower back. Denies any head trauma, headache or loss of consciousness after fall. He reports having worsening back pain and left knee pain since fall. He rates his pain currently a 8 out of 10. Denies any cauda equina symptoms. Associated symptoms: Deny abdominal pain, chills, dysuria, fatigue, fever(s), hematuria, nausea or vomiting Review of Systems Const: Denies: fever(s), chills or fatigue Eyes: Denies: change in vision or eye discomfort ENMT: Denies: throat pain, odynophagia, nasal discharge or nasal congestion Card: Denies: chest pain, palpitations, edema, swelling of feet/ankles, dyspnea on exertion or orthopnea Resp: Denies: dyspnea, productive cough or non-productive cough GI: Denies: abdominal pain, nausea, vomiting, diarrhea, constipation or hematochezia : Denies: flank pain, difficulty urinating, dysuria or hematuria Musc: Reports: back pain and extremity pain (Left knee); Denies: neck pain or extremity swelling Skin/Breast: Denies: rash or new lesions Neuro: Denies: headache(s), numbness in extremities or weakness in extremities PFS ED PFSH: Medical History Atherosclerosis of coronary artery Benign prostatic hyperplasia CHF (congestive heart failure) Colon polyp Conjunctival hemorrhage Degenerative arthritis of cervical spine Diabetes Diabetic neuropathy Edema Erectile dysfunction GERD (gastroesophageal reflux disease) Gross hematuria Heart failure Hyperlipidemia Hypertension Hypothyroidism Incomplete bladder emptying Intervertebral disc syndrome Low back pain Major depressive disorder Migraine Myocardial bridge Non-insulin dependent type 2 diabetes mellitus ROMEO (obstructive sleep apnea) Peripheral neuropathy Restless leg Urinary retention Vitamin B12 deficiency anemia Surgical History History of appendectomy History of colonoscopy with polypectomy History of esophagogastroduodenoscopy (EGD) Hx of umbilical hernia repair Family History Father , AT AGE 77 ALS (amyotrophic lateral sclerosis) Lung disease Brother ALS (amyotrophic lateral sclerosis) Grandmother Cancer Diabetes Grandfather Cancer Son Cancer Mother , AT AGE 83 Dementia Social History Smoking and tobacco status: never smoked Alcohol intake: never Marital status: Current occupational status: retired Physical Exam Const: COMMON NORMALS: no acute distress, patient oriented x3 and alert GENERAL APPEARANCE: cooperative and comfortable HENMT: COMMON NORMALS: normocephalic HEAD & SCALP: normocephalic MOUTH: Normal oral and palatal mucosa present THROAT: posterior oropharynx normal and uvula midline Neck/C-Spine: COMMON NORMALS: supple GENERAL: Yes normal visual inspection Resp: COMMON NORMALS: normal respiratory effort, No retractions, No use of accessory muscles and clear to auscultation bilaterally AUSCULTATION: clear to auscultation bilaterally Cardio: COMMON NORMALS: regular rate, regular rhythm, S1 normal heart sound present, S2 normal heart sound present, No gallops present (Cardio), No clicks present (Cardio), No murmurs present (Cardio) and Peripheral pulses 2+ throughout RATE: regular rate RHYTHM: regular rhythm HEART SOUNDS: S1 normal heart sound present and S2 normal heart sound present PERIPHERAL PULSES: Peripheral pulses 2+ throughout GI: COMMON NORMALS: Normal to inspection, nondistended, normoactive bowel sounds present, Soft to palpation, non-tender and no masses PALPATION: Yes Soft to palpation : COMMON NORMALS: Yes no CVA tenderness BLADDER/KIDNEY EXAM: Yes no CVA tenderness Back/Pelvis: COMMON NORMALS: no CVA tenderness LUMBAR SPINE/LOWER BACK: Yes lumbar spinal tenderness and Yes paraspinal muscle tenderness Lumbar paraspinal muscle tenderness: bilateral Extremity: COMMON NORMALS: normal to inspection Neuro: COMMON NORMALS: patient oriented x3 SENSORIUM/ORIENTATION: Yes alert GAIT: Yes Normal gait present Skin: GENERAL SKIN EXAM: dry skin Course Vital Signs: Vital signs: Vital Signs Temperature 97.7 F 11/22/22 11:23 Pulse Rate 72 11/22/22 11:23 Respiratory Rate 22 H 11/22/22 12:19 Blood Pressure 134/90 11/22/22 11:23 Pulse Oximetry 99 11/22/22 11:23 Oxygen Delivery Me thod 11/22/22 11:23 MDM - Back Pain/Injury Medical Decision Making Patient is a 67-year-old male comes to the ED with back pain. Patient has a history of chronic back pain and a week ago he received some injections in his lower back by Dr. Sue Seay. 24 hours after he got those injections he had a fall and he fell backwards and landed on his lower back. Denies any head trauma, headache or loss of consciousness after fall. He reports having worsening back pain and left knee pain since fall. He rates his pain currently a 8 out of 10. Denies any cauda equina symptoms. Vitals are stable. Patient has some lumbar spinal tenderness and bilateral lumbar paraspinal muscle tenderness as well. Rest of exam is benign. He appears nontoxic in no acute distress. X-ray of left knee showed mild osteoarthritis and lumbar spine x-ray showed severe osteoarthritis of lower lumbar spine. Patient was given a dose of morphine muscle relaxer and Decadron here in the ED. He was diagnosed with lumbar spine osteoarthritis and low back pain. Told to follow-up with his PCP in the next week for reevaluation. He was sent home with a prescription for hydrocodone, Celebrex and a muscle relaxer. Patient understood and agreed with plan. Labs Radiology Impressions Knee X-Ray 11/22/22 12:06 IMPRESSION: 1. Mild osteoarthritis 2. Negative for acute bony abnormality 3. Otherwise No acute findings. Lumbar Spine X-Ray 11/22/22 12:06 IMPRESSION: Severe osteoarthritis lower lumbar spine Otherwise No acute findings. Discharge Plan Discharge Patient Disposition: Home Clinical Impression: Osteoarthritis of lumbar spine Qualifiers: Spinal osteoarthritis complication: unspecified spinal osteoarthritis Qualified Code(s): M47.816 - Spondylosis without myelopathy or radiculopathy, lumbar region Low back pain Qualifiers: Chronicity: acute Back pain laterality: bilateral Sciatica presence: unspecified whether sciatica present Qualified Code(s): M54.50 - Low back pain, unspecified Condition: Stable Prescriptions: New methocarbamol 750 mg tablet 750 mg PO Q8H PRN (Reason: Back muscle spasms and pain) Qty: 20 0RF Celebrex 100 mg capsule 100 mg PO BID PRN (Reason: pain) Qty: 30 0RF No Action pramipexole 0.125 mg tablet 0.125 mg PO DAILY (DME) Costum Functional Molded Orthotics See Rx Instructions .Route .MEDSUPPLY Qty: 1 0RF Rx Instructions: As directed [facility] carbidopa-levodopa 25-100 mg tablet 2 tab PO BEDTIME omeprazole 20 mg capsule,delayed release(DR/EC) 20 mg PO QAM polyvinyl alcohol [Artificial Tears (polyvin alc)] 1.4 % drops 1 drp ophthalmic (eye) DAILY aspirin [Adult Aspirin Regimen] 81 mg tablet,delayed release (DR/EC) 81 mg PO DAILY Hold Instructions: Resume on 03/27/21. pioglitazone 15 mg tablet 15 mg PO DAILY cholecalciferol (vitamin D3) 25 mcg (1,000 unit) capsule 25 mcg PO DAILY cyanocobalamin (vitamin B-12) 1,000 mcg tablet 1,000 mcg PO DAILY pregabalin [Lyrica] 150 mg capsule 150 mg PO TID potassium chloride 20 mEq tablet extended release 20 meq PO DAILY ropinirole 2 mg tablet 4 mg PO BID tamsulosin 0.4 mg capsule 0.8 mg PO DAILY Qty: 60 3RF alogliptin 25 mg tablet 25 mg PO DAILY gabapentin 600 mg tablet 600 mg PO BID Rx Instructions: PT TAKES 1 TAB IN A.M. AND 2 TAB AT HS furosemide 40 mg tablet 60 mg PO DAILY Qty: 90 3RF spironolactone 25 mg tablet 25 mg PO DAILY Qty: 90 3RF nitroglycerin 2.5 mg capsule, extended release 2.5 mg PO BID Qty: 60 5RF Rx Instructions: allow nitrate-free interval of approx. 10-12 hrs per 24-hour period nitroglycerin 0.4 mg tablet, sublingual 0.4 mg sublingual Q5M PRN (Reason: chest pain) Qty: 50 3RF Rx Instructions: until response; do not exceed 3 doses per episode hydrocodone-acetaminophen 5-325 mg tablet 1 tab PO Q6H PRN (Reason: Renal colic) 3 Days Qty: 12 0RF ciprofloxacin HCl 500 mg tablet 500 mg PO BID Qty: 42 1RF metoprolol tartrate 25 mg tablet 25 mg PO BID Qty: 180 3RF carbamazepine [Tegretol XR] 200 mg Tablet Extended Release 12 Hr 200 mg PO BID Discharge Orders: Discharge ED (Routine); Ordered 11/22/22 Ordered By: Turner Perez Referrals: Cynthia Rowe MD [Primary Care Provider] - Discharge Diet: Regular Discharge Activity: Increase activity as tolerated Patient Instructions: Back Pain (ED), Opioid Safety Activity Restrictions/Additional Instructions: Follow-up with medical provider as directed in the next 5 to 7 days for reevaluation. Take medications as prescribed. Return to the ER or your medical provider if condition worsens. Please read and understand discharge instructions. Thank you for choosing [facility] for your healthcare needs today. Please realize this is an emergency room and that we are providing you with a medical screening exam and this may not be complete and all inclusive of all the testing and or work up that you may need to determine your ailment or severity of your illness. It is very important that you follow up as instructed or that you return to the Emergency Department should you have concerns or if your condition changes or worsens in any way. Coding Level of Care Code ED Repair Servicer for Obed Beck
[2022-11-22 12:19] VITALS: RESP 22
[2022-11-22] MEDS: morphine 4 mg/mL SDV 1 mL IM (12:19)
[2022-11-22] MEDS: orphenadrine 30 mg/mL Inj 2 mL 60 MG IM (12:21)
[2022-11-22] MEDS: dexamethasone 10 mg/mL INJ IM (13:22)
== END 2022-11-22 13:33 | disposition home or self-care (01) ==
PROVIDERS: Emergency Provider Physician Assistant; PCP Family Medicine
DX: M47.816 Spondylosis without myelopathy or radiculopathy, lumbar region (principal); M54.50 Low back pain, unspecified; Z79.82 Long term (current) use of aspirin; M17.12 Unilateral primary osteoarthritis, left knee; I11.0 Hypertensive heart disease with heart failure; I50.9 Heart failure, unspecified; E11.9 Type 2 diabetes mellitus without complications; E78.5 Hyperlipidemia, unspecified
CPT/HCPCS: 72100; 73562; 96372; 99284; J1100; J2270; J2360

== ENCOUNTER 2023-01-01 00:07 | Emergency (ER) | payer OTHER, SELFPAY ==
[2023-01-01 00:08] VITALS: BP 109/65; PULSE 73; RESP 18; TEMP 36.4; O2SAT 97; BMI 28.8
[2023-01-01 00:20] VITALS: BP 109/65; PULSE 69; RESP 16; O2SAT 98
--- NOTE | 2023-01-01 00:24 | ECG_ITS ---
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 Measurements Intervals [place] Rate: 68 P: 51 NJ: 155 QRS: -59 QRSD: 94 T: 55 QT: 397 QTc: 423 Interpretive Statements SINUS RHYTHM LOW QRS VOLTAGE IN PRECORDIAL LEADS [QRS DEFLECTION < 1.0 mV IN CHEST LEADS] LEFT ANTERIOR FASCICULAR BLOCK [QRS AXIS <= -45, QR IN I, RS IN II] POSSIBLE ANTERIOR MYOCARDIAL INFARCTION , OF INDETERMINATE AGE [30 ms Q WAVE IN V3/V4, OR R < 0.2 mV IN V4] Compared to ECG 11/23/2020 21:25:27 Low QRS voltage now present Incomplete right bundle-branch block no longer present Myocardial infarct finding still present Electronically Signed On 01-01-2023 9:44:47 CDT by Jarvis Sands M.D. [id number]
[2023-01-01 00:30] LABS: Glucose Point of Care 144 mg/dL (70-110)
[2023-01-01 00:34] LABS: Basophils % 0.4 %; Eosinophils # 0.2 10^3/uL (0.0-0.8); Eosinophils % 1.9 %; Hematocrit 43.9 % (42.0-52.0); Hemoglobin 15.1 g/dL (11.7-16.6); Lymphocytes # 1.9 10^3/uL (0.8-4.8); Mean Corpuscular HGB Conc 34.4 g/dL (30.0-36.0); Mean Corpuscular Hemoglobin 32.3 pg (28.0-34.0); Mean Platelet Volume 10.4 fL (7.4-10.4); Monocytes # 0.8 10^3/uL (0.2-0.9); Monocytes % 8.3 %; Neutrophils # 6.92 10^3/uL (1.8-7.7); Neutrophils % 70.1 %; Nucleated Red Blood Cells % 0 %; Platelet Count 220 10^3/cmm (130-400); Red Blood Count 4.67 10^6/uL (4.1-5.3); Red Cell Distribution Width 12.2 % (12.1-15.1); White Blood Count 9.9 10^3/uL (4.0-10.0)
--- NOTE | 2023-01-01 00:36 | ED_ITS ---
HPI - General Adult General: Chief complaint: General Medical Stated complaint: BLOOD SUGAR PROBLEMS Time Seen by Provider: 01/01/23 00:13 Source: patient Mode of arrival: EMS Limitations: no limitations History of Present Illness: Patient presents to the emergency department today brought by EMS for evaluation treatment of concerns for low blood sugar. Patient reports he is a poorly controlled diabetic-mostly self-inflicted as he does not regularly check his numbers. He also states he is currently going through a divorce and has not been taking care of himself, not eating correctly, etc. He reports dizziness, shakiness, and diaphoresis this evening and reports checking a blood sugar that was below 80. He also indicates continued shortness of breath and chest pressure throughout the night. He indicates that this is not new and has had this evaluated before. He was told he has COPD and that the bottom part of his heart does not work right and does not move oxygen around -I suspect he is discussing his heart failure. Chart review also indicates patient has bladder issues and he indicates he self caths at home. He has anemia, sleep apnea, hypothyroidism, hypertension, and hyperlipidemia. 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 Patient states that he was tired of his polypharmacy about a year ago. He states he talk to his primary care doctor at the [facility] about getting off of his medications however, his primary care doctor indicated there was nothing that they could take off. So, patient states he stopped taking all of his chronic medication except medicine to help with his generalized pains such as his gabapentin and his Vendor. Review of Systems General: Reports: 10 or more systems reviewed and unremarkable except in HPI and below PFSH ED PFSH: Medical History Atherosclerosis of coronary artery Benign prostatic hyperplasia CHF (congestive heart failure) Colon polyp Conjunctival hemorrhage Degenerative arthritis of cervical spine Diabetes Diabetic neuropathy Edema Erectile dysfunction GERD (gastroesophageal reflux disease) Gross hematuria Heart failure Hyperlipidemia Hypertension Hypothyroidism Incomplete bladder emptying Intervertebral disc syndrome Low back pain Major depressive disorder Migraine Myocardial bridge Non-insulin dependent type 2 diabetes mellitus ROMEO (obstructive sleep apnea) Peripheral neuropathy Restless leg Urinary retention Vitamin B12 deficiency anemia Surgical History History of appendectomy History of colonoscopy with polypectomy History of esophagogastroduodenoscopy (EGD) Hx of umbilical hernia repair Family History Father , AT AGE 77 ALS (amyotrophic lateral sclerosis) Lung disease Brother ALS (amyotrophic lateral sclerosis) Grandmother Cancer Diabetes Grandfather Cancer Son Cancer Mother , AT AGE 83 Dementia Social History Smoking and tobacco status: never smoked Alcohol intake: never Substance/Drug Use: current Marital status: Current occupational status: retired Physical Exam Const: COMMON NORMALS: no acute distress, patient oriented x3, no limitations and alert HENMT: COMMON NORMALS: normocephalic, atraumatic and hearing grossly normal bilaterally HEAD & SCALP: normocephalic and atraumatic Eye: COMMON NORMALS: Equal, round and reactive pupils present, EOMs intact yecenia aterally and conjunctivae normal CONJUNCTIVA: Yes conjunctivae normal PUPIL: Yes Equal, round and reactive pupils present Resp: COMMON NORMALS: normal respiratory effort, No retractions and No use of accessory muscles Cardio: COMMON NORMALS: regular rate and regular rhythm RATE: regular rate RHYTHM: regular rhythm Extremity: COMMON NORMALS: normal to inspection and full ROM Neuro: COMMON NORMALS: patient oriented x3 SENSORIUM/ORIENTATION: Yes alert CRANIAL NERVES: Yes CN normal except as noted SPEECH: speech normal Psych: COMMON NORMALS: mental status grossly normal, Normal thought process present, cooperative, normal affect and activity/motor behavior normal THOUGHT PROCESS: Normal thought process present Course Vital Signs: Vital signs: Vital Signs Temperature 97.5 F L 01/01/23 00:08 Pulse Rate 69 01/01/23 00:20 Respiratory Rate 16 01/01/23 00:20 Blood Pressure 109/65 01/01/23 00:20 Pulse Oximetry 98 01/01/23 00:20 Oxygen Delivery Me thod Room Air 01/01/23 00:08 [facility] - General Adult Medical Decision Making Patient presents today brought by EMS for concerns of an acute low blood sugar reading today. Patient admits to poor health habits and apparently has not been taking any of his chronic medications for approximately 1 year. Patient's general evaluation today revealed no significant concerns. No signs of infection, anemia, severe kidney injury, liver disease, DKA or cardiac issues. After having a longer discussion with the patient, he indicates his biggest complaint is poor quality of sleep. Patient has ROMEO and states he cannot wear his mask. [facility]. He also states his restless legs and arms are causing him significant discomfort and also keep him from being able to rest. He states his family has a history of ALS and Parkinson's but, he is afraid to have an evaluation for these conditions in case he is diagnosed. Encouraged the patient to reach out to his primary care doctor to discuss his issue of poor quality sleep and his restless arms and legs. It appears he has been on medication in the past to help with neurologic cause for muscle spasticity. Patient is given strict return precautions for any return of hypoglycemia. Information regarding hypoglycemia provided to the patient. Patient verbalized understanding and agreement to treatment plan. Differential Diagnosis DDx: Hypoglycemia, cardiac event, DKA, anemia, KIMBERLYN, dehydration Lab Data 01/01/23 00:30 01/01/23 00:30 Laboratory Results WBC 9.9 10^3/uL (4.0-10.0) 01/01/23 00:30 RBC 4.67 10^6/uL (4.1-5.3) 01/01/23 00:30 Hgb 15.1 g/dL (11.7-16.6) 01/01/23 00:30 Hct 43.9 % (42.0-52.0) 01/01/23 00:30 MCV 94.0 fl (80-94) 01/01/23 00:30 MCH 32.3 pg (28.0-34.0) 01/01/23 00:30 MCHC 34.4 g/dL (30.0-36.0) 01/01/23 00:30 RDW 12.2 % (12.1-15.1) 01/01/23 00:30 Plt Count 220 10^3/cmm (130-400) 01/01/23 00:30 MPV 10.4 fL (7.4-10.4) 01/01/23 00:30 Neut % (Auto) 70.1 % 01/01/23 00:30 Lymph % (Auto) 19.0 % 01/01/23 00:30 Martin % (Auto) 8.3 % 01/01/23 00:30 Eos % (Auto) 1.9 % 04/23/23 00:30 Baso % (Auto) 0.4 % 01/01/23 00:30 Neut # (Auto) 6.92 10^3/uL (1.8-7.7) 01/01/23 00:30 Lymph # (Auto) 1.9 10^3/uL (0.8-4.8) 01/01/23 00:30 Martin # (Auto) 0.8 10^3/uL (0.2-0.9) 01/01/23 00:30 Eos # (Auto) 0.2 10^3/uL (0.0-0.8) 01/01/23 00:30 Baso # (Auto) 0.0 10^3/uL (0.0-0.1) 01/01/23 00:30 Nucleated RBC % (auto) 0 % 01/01/23 00:30 Nucleated RBCs # 0.0 /100WBC 01/01/23 00:30 Specimen Type Venous 01/01/23 00:40 Sample Site Not specified 01/01/23 00:40 Timmy Test Pos 01/01/23 00:40 VBG pH 7.41 (7.32-7.42) 01/01/23 00:40 VBG pCO2 41.1 mmHg (41-51) 01/01/23 00:40 VBG pO2 60.3 mmHg (25-40) H 01/01/23 00:40 VBG HCO3 26.0 mmol/L (24-28) 01/01/23 00:40 VBG Base Excess 1.2 mmol/L (-3.0-3.0) 01/01/23 00:40 VBG Hematocrit 47.1 % (42-52) 01/01/23 00:40 O2 Delivery Device Not Reportable 01/01/23 00:40 Director Hospice Operations ID Monro 01/01/23 00:40 Sodium 136 mmol/L (136-145) 01/01/23 00:30 Potassium 3.6 mmol/L (3.5-5.1) 01/01/23 00:30 Chloride 102 mmol/L (98-107) 01/01/23 00:30 Carbon Dioxide 22 mmol/L (22-29) 01/01/23 00:30 Anion Gap 15.6 (5-19) 01/01/23 00:30 BUN 12 mg/dL (8-23) 01/01/23 00:30 Creatinine 0.6 mg/dL (0.7-1.2) L 01/01/23 00:30 GFR Calculation 134.4 mL/min (90-130) H 01/01/23 00:30 Glucose 138 mg/dL (65-115) H 01/01/23 00:30 POC Glucose 144 mg/dL (70-110) H 01/01/23 00:26 Calculated Osmolality 284 mOsm/kg (285-295) L 01/01/23 00:30 Calcium 8.7 mg/dL (8.5-10.5) 01/01/23 00:30 Total Bilirubin 0.8 mg/dL (0.15-1.2) 01/01/23 00:30 AST 22 U/L (0-40) 01/01/23 00:30 ALT < 5 U/L (0-41) 01/01/23 00:30 Alkaline Phosphatase 97 U/L (40-130) 01/01/23 00:30 Troponin T Gen 5 ng/L 9 ng/L (0-15) 01/01/23 00:30 Total Protein 6.3 g/dL (6.6-8.7) L 01/01/23 00:30 Albumin 4.0 g/dL (3.5-5.2) 01/01/23 00:30 Globulin 2.3 g/dL (1.3-4.6) 01/01/23 00:30 Lipase 89 U/L (13-60) H 01/01/23 00:30 Urine Color Yellow (Yellow) 01/01/23 01:20 Urine Appearance Clear (CLEAR) 01/01/23 01:20 Urine pH 5 (5-7) 01/01/23 01:20 Ur Specific [place] 1.025 (1.005-1.030) 01/01/23 01:20 Urine Protein Neg (Negative) 01/01/23 01:20 Urine Glucose (UA) Trace (Normal) H 01/01/23 01:20 Urine Ketones Negative (Negative) 01/01/23 01:20 Urine Blood Neg (Negative) 01/01/23 01:20 Urine Nitrate Negative (Negative) 01/01/23 01:20 Urine Bilirubin Neg (Negative) 01/01/23 01:20 Urine Urobilinogen Norm mg/dL (Negative) 01/01/23 01:20 Ur Leukocyte Esterase Negative (Negative) 01/01/23 01:20 Serum Ketones Negative (Negative) 01/01/23 00:30 Discharge Plan Discharge Patient Disposition: Home Clinical Impression: Low blood sugar in diabetes Condition: Stable Prescriptions: No Action pramipexole 0.125 mg tablet 0.125 mg PO DAILY (DME) Costum Functional Molded Orthotics See Rx Instructions .Route .MEDSUPPLY Qty: 1 0RF Rx Instructions: As directed [facility] carbidopa-levodopa 25-100 mg tablet 2 tab PO BEDTIME omeprazole 20 mg capsule,delayed release(DR/EC) 20 mg PO QAM polyvinyl alcohol [Artificial Tears (polyvin alc)] 1.4 % drops 1 drp ophthalmic (eye) DAILY aspirin [Adult Aspirin Regimen] 81 mg tablet,delayed release (DR/EC) 81 mg PO DAILY Hold Instructions: Resume on 03/27/21. pioglitazone 15 mg tablet 15 mg PO DAILY cholecalciferol (vitamin D3) 25 mcg (1,000 unit) capsule 25 mcg PO DAILY cyanocobalamin (vitamin B-12) 1,000 mcg tablet 1,000 mcg PO DAILY pregabalin [Lyrica] 150 mg capsule 150 mg PO TID potassium chloride 20 mEq tablet extended release 20 meq PO DAILY ropinirole 2 mg tablet 4 mg PO BID tamsulosin 0.4 mg capsule 0.8 mg PO DAILY Qty: 60 3RF alogliptin 25 mg tablet 25 mg PO DAILY gabapentin 600 mg tablet 600 mg PO BID Rx Instructions: PT TAKES 1 TAB IN A.M. AND 2 TAB AT HS furosemide 40 mg tablet 60 mg PO DAILY Qty: 90 3RF nitroglycerin 2.5 mg capsule, extended release 2.5 mg PO BID Qty: 60 5RF Rx Instructions: allow nitrate-free interval of approx. 10-12 hrs per 24-hour period nitroglycerin 0.4 mg tablet, sublingual 0.4 mg sublingual Q5M PRN (Reason: chest pain) Qty: 50 3RF Rx Instructions: until response; do not exceed 3 doses per episode hydrocodone-acetaminophen 5-325 mg tablet 1 tab PO Q6H PRN (Reason: Renal colic) 3 Days Qty: 12 0RF ciprofloxacin HCl 500 mg tablet 500 mg PO BID Qty: 42 1RF metoprolol tartrate 25 mg tablet 25 mg PO BID Qty: 180 3RF spironolactone 25 mg tablet 25 mg PO DAILY Qty: 30 0RF Rx Instructions: MUST have follow-up for further refills carbamazepine [Tegretol XR] 200 mg Tablet Extended Release 12 Hr 200 mg PO BID methocarbamol 750 mg tablet 750 mg PO Q8H PRN (Reason: Back muscle spasms and pain) Qty: 20 0RF Celebrex 100 mg capsule 100 mg PO BID PRN (Reason: pain) Qty: 30 0RF Discharge Orders: Discharge ED (Routine); Ordered 01/01/23 Ordered By: Chapis Segura Referrals: Cynthia Rowe MD [Primary Care Provider] - Discharge Diet: Diabetic Discharge Activity: Increase activity as tolerated Patient Instructions: What to Do if Your Blood Sugar is Low (ED) Activity Restrictions/Additional Instructions: Lab work today shows no outstanding concerns. I did do a more in-depth check of your blood to see if you have been having issues with your blood sugar levels causing acidotic changes in your blood however, there were no acute findings today. Your urinalysis shows no signs of ketones and you have no serum ketones at this time. You show no signs of any infection or severe anemias. Kidney function is stable. EKG is also stable. I did run a test on your heart and showed no acute concerns there. Continue to watch her blood sugars at home. I have included some information on what to do if you continue to have or have an extremely low blood sugar reading Sleep is extremely important. I would recommend reaching out to your primary care doctor to discuss treatment for improved sleep as a lot of symptoms of chronic illness are made worse without sleep. In regards to your restless arms and legs, it does look like you at 1 point were on some medication to help control the symptoms and you may wish to discuss with your primary care doctor returning back to this specific medication to help allow you to rest and relax better. Coding Level of Care Code ED Room Service Waiter/Waitress for Obed Beck
[2023-01-01 00:46] LABS: Base Excess VBG 1.2 mmol/L (-3.0-3.0); Blood Gas Allen Test Pos; Blood Gas Operator Identificat MONRO; Blood Gas Sample Site Not specified; Blood Gas Sample Type Venous; PCO2 VBG 41.1 mmHg (41-51); PO2 VBG 60.3 mmHg (25-40); Venous Blood Gas Hematocrit 47.1 % (42-52); pH VBG 7.41 (7.32-7.42)
[2023-01-01 00:49] LABS: Ketone (Acetest) Serum Negative (Negative)
[2023-01-01 00:52] LABS: Alanine Aminotransferase < 5 U/L (0-41); Alkaline Phosphatase 97 U/L (40-130); Anion Gap 15.6 (5-19); Aspartate Amino Transferase 22 U/L (0-40); Blood Urea Nitrogen 12 mg/dL (8-23); Calcium 8.7 mg/dL (8.5-10.5); Carbon Dioxide 22 mmol/L (22-29); Chloride 102 mmol/L (98-107); Globulin 2.3 g/dL (1.3-4.6); Glomerular Filtration Rate 134.4 mL/min (90-130); Glucose 138 mg/dL (65-115); Lipase 89 U/L (13-60); Osmolality Calculated 284 mOsm/kg (285-295); Potassium 3.6 mmol/L (3.5-5.1); Sodium 136 mmol/L (136-145); Total Bilirubin 0.8 mg/dL (0.15-1.2); Total Protein 6.3 g/dL (6.6-8.7)
[2023-01-01 00:54] LABS: Troponin T (5th) Once 9 ng/L (0-15)
[2023-01-01 01:21] LABS: Add Urine Microscopic? NO; Charge for UA Resulting for Rev
[2023-01-01 01:35] LABS: Glucose Urine UA Trace (Normal); Protein Urine Neg (Negative); Specific Gravity, Urine 1.025 (1.005-1.030); Urine Appearance Clear (CLEAR); Urine Color Yellow (Yellow); pH Urine 5 (5-7)
[2023-01-01 01:36] LABS: Bilirubin Urine Neg (Negative); Blood Urine Neg (Negative); Ketones Urine Negative (Negative); Leukocyte Esterase Urine Negative (Negative); Nitrate Urine Negative (Negative); Urobilinogen Urine Norm (Negative)
[2023-01-01] MEDS: ropinirole 1 mg Tablet 4 MG PO (01:46)
[2023-01-01 02:23] VITALS: BP 109/65; PULSE 69; RESP 16; TEMP 36.4; O2SAT 98
== END 2023-01-01 02:26 | disposition home or self-care (01) ==
PROVIDERS: Emergency Provider Physician Assistant; PCP Family Medicine
DX: E11.649 Type 2 diabetes mellitus with hypoglycemia without coma (principal); Z79.82 Long term (current) use of aspirin; I25.10 Atherosclerotic heart disease of native coronary artery without angina pectoris; I11.0 Hypertensive heart disease with heart failure; I50.9 Heart failure, unspecified; E78.5 Hyperlipidemia, unspecified
CPT/HCPCS: 36416; 80053; 81003; 82009; 82803; 82962; 83690; 84484; 85025; 93005; 99284

== ENCOUNTER → 2023-01-23 12:59 | Outpatient (BNVA) | payer OTHER, SELFPAY | PROVIDERS: PCP Family Medicine; Visit Provider Thoracic Surgery (Cardiothoracic Vascular Surgery) | DX: E11.621 Type 2 diabetes mellitus with foot ulcer (principal); I96 Gangrene, not elsewhere classified; L97.521 Non-pressure chronic ulcer of other part of left foot limited to breakdown of skin | CPT/HCPCS: 97597; 99213 ==

== ENCOUNTER 2023-02-18 12:09 | Emergency (ER) | payer OTHER, SELFPAY ==
[2023-02-18] VITALS (8 sets, daily range): BP systolic 129–162; BP diastolic 66–100; PULSE 74–95; RESP 15–18; O2SAT 95–100; BMI 28.2
--- NOTE | 2023-02-18 12:15 | ECG_ITS ---
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 Measurements Intervals [place] Rate: 82 P: 48 CO: 160 QRS: -57 QRSD: 94 T: 32 QT: 361 QTc: 423 Interpretive Statements SINUS RHYTHM LOW QRS VOLTAGE IN PRECORDIAL LEADS [QRS DEFLECTION < 1.0 mV IN CHEST LEADS] PATTERN CONSISTENT WITH PULMONARY DISEASE LEFT ANTERIOR FASCICULAR BLOCK [QRS AXIS <= -45, QR IN I, RS IN II] Compared to ECG 01/01/2023 01:52:24 Myocardial infarct finding no longer present Electronically Signed On 02-18-2023 14:49:56 CDT by Poppy Barrera M.D. [email or web address]
--- NOTE | 2023-02-18 12:15 | XRR_ITS ---
PROCEDURE INFORMATION: Exam: XR Chest Exam date and time: 02/18/2023 12:18 PM Age: 67 years old Clinical indication: Cough and dyspnea; Additional info: Dyspnea/cough TECHNIQUE: Imaging protocol: Radiologic exam of the chest. Views: 1 view. COMPARISON: CR XR chest 1V portable [id number] 11/23/2020 10:25 PM FINDINGS: Lungs: Unremarkable. No consolidation. Pleural spaces: Unremarkable. No pleural effusion. No pneumothorax. Heart/Mediastinum: Unremarkable. No cardiomegaly. Vasculature: Thoracic aorta is tortuous similar to the prior study. Bones/joints: Unremarkable. XR/XR chest 1V portable [id number] IMPRESSION: No evidence for acute cardiopulmonary disease.
[2023-02-18 12:45] LABS: Glucose Point of Care 195 mg/dL (70-110)
--- NOTE | 2023-02-18 12:48 | W.ED.DIZZY ---
HPI - Dizziness General: Chief Complaint: Dizziness Stated Complaint: High Blood Pressure, SOB, Weak Time Seen by Provider: 02/18/23 12:14 Source: patient Mode of arrival: ambulatory History of Present Illness: HPI Narrative: 67-year-old male presents emergency room concerned about elevated blood sugars. Initial nurses note says a stable plateau with high blood pressure he has noticed high blood sugars he is on Actos for diabetes. I talked to the patient he said he was on 6 different medications for diabetes but on his current medicine list there is only 2, Actos and alogliptin. Patient also notes that when he sits up or moves he gets lightheaded and dizzy. He has a history of Parkinson's as well as hypertension and diabetes he is on Sinemet. He self caths due to prostate issues. MD elicited complaint: dizziness and lightheadedness Onset (ago): day(s) Timing: gradual onset Severity: mild Description: sense of movement and lightheadedness Context: change in body position Exacerbating factors: change in body position Associated symptoms: Denies chest pain, chills, malaise, nausea, nasal congestion or vomiting Review of Systems Const: Denies: fever(s), chills, body aches, change in appetite, fatigue or malaise ENMT: Denies: throat pain, ear or mastoid pain, nasal discharge or nasal congestion Card: Denies: chest pain, edema, dyspnea on exertion or orthopnea Resp: Denies: dyspnea, productive cough or non-productive cough GI: Denies: abdominal pain, nausea, vomiting, hematemesis, coffee ground emesis, diarrhea, constipation, bloating, hematochezia or melena : Denies: flank pain, dysuria, urinary frequency or urinary urgency Skin/Breast: Denies: rash or pruritus PFSH ED PFSH: Medical History Atherosclerosis of coronary artery Benign prostatic hyperplasia CHF (congestive heart failure) Colon polyp Conjunctival hemorrhage Degenerative arthritis of cervical spine Diabetes Diabetic neuropathy Edema Erectile dysfunction GERD (gastroesophageal reflux disease) Gross hematuria Heart failure Hyperlipidemia Hypertension Hypothyroidism Incomplete bladder emptying Intervertebral disc syndrome Low back pain Major depressive disorder Migraine Myocardial bridge Non-insulin dependent type 2 diabetes mellitus ROMEO (obstructive sleep apnea) Peripheral neuropathy Restless leg Urinary retention Vitamin B12 deficiency anemia Surgical History History of appendectomy History of colonoscopy with polypectomy History of esophagogastroduodenoscopy (EGD) Hx of umbilical hernia repair Family History Father , AT AGE 77 ALS (amyotrophic lateral sclerosis) Lung disease Brother ALS (amyotrophic lateral sclerosis) Grandmother Cancer Diabetes Grandfather Cancer Son Cancer Mother , AT AGE 83 Dementia Social History Smoking and tobacco status: never smoked Alcohol intake: never Substance/Drug Use: current Marital status: Current occupational status: retired Physical Exam Const: GENERAL APPEARANCE: cooperative and comfortable ORIENTATION/CONSCIOUSNESS: Yes awake, Yes oriented to person, Yes oriented to place and Yes oriented to time HENMT: COMMON NORMALS: normocephalic, atraumatic and hearing grossly normal bilaterally HEAD & SCALP: normocephalic and atraumatic Resp: COMMON NORMALS: normal respiratory effort, No retractions, No use of accessory muscles and clear to auscultation bilaterally AUSCULTATION: clear to auscultation bilaterally Cardio: COMMON NORMALS: regular rate, regular rhythm and No murmurs present (Cardio) RATE: regular rate RHYTHM: regular rhythm GI: COMMON NORMALS: Soft to palpation and No hepatosplenomegaly present AUSCULTATION: Yes normoactive bowel sounds PALPATION: Yes Soft to palpation, No Tenderness to palpation present (GI), No Guarding due to palpation present (GI) and Yes No hepatosplenomegaly present Extremity: COMMON NORMALS: normal to inspection, capillary refill normal, no clubbing, cyanosis or edema, no calf tenderness and no pedal edema Neuro: SENSORIUM/ORIENTATION: Yes oriented to person, Yes oriented to place and Yes oriented to time Skin: COMMON NORMALS: no rashes or lesions noted GENERAL SKIN EXAM: no rashes or lesions noted Course Vital Signs: Vital signs: Vital Signs Pulse Rate 74 02/18/23 15:44 Respiratory Rate 16 02/18/23 15:44 Blood Pressure 142/96 02/18/23 15:44 Pulse Oximetry 100 02/18/23 15:44 Oxygen Delivery Me thod Room Air 02/18/23 12:28 MDM - Dizziness Medical Decision Making Patient has not been taking these medications except the ropinirole and the Lyrica. He is pretty much stopped all the other medications reviewed lab findings with him went through his more simplified medication list of medicines he should restart left the rest of the medicines on hold until he follows up with the primary care clinic. Important that he restart his diabetic medications monitor blood sugars and blood pressures closely. Recheck with his primary care doctor next week return if he has further problems. He also incidental finding of cystitis started on Macrobid. Medical Records I reviewed the patient's medical records. Lab Data I reviewed the patient's lab results. 02/18/23 12:38 02/18/23 12:38 Radiology Impressions Chest X-Ray 02/18/23 12:15 IMPRESSION: No evidence for acute cardiopulmonary disease. Laboratory Results WBC 6.5 10^3/uL (4.0-10.0) 02/18/23 12:38 RBC 4.81 10^6/uL (4.1-5.3) 02/18/23 12:38 Hgb 15.3 g/dL (11.7-16.6) 02/18/23 12:38 Hct 47.0 % (42.0-52.0) 02/18/23 12:38 MCV 97.7 fl (80-94) H 02/18/23 12:38 MCH 31.8 pg (28.0-34.0) 02/18/23 12:38 MCHC 32.6 g/dL (30.0-36.0) 02/18/23 12:38 RDW 12.1 % (12.1-15.1) 02/18/23 12:38 Plt Count 132 10^3/cmm (130-400) 02/18/23 12:38 MPV 11.9 fL (7.4-10.4) H 02/18/23 12:38 Neut % (Auto) 68.0 % 02/18/23 12:38 Lymph % (Auto) 21.7 % 02/18/23 12:38 [place] % (Auto) 6.6 % 02/18/23 12:38 Eos % (Auto) 2.8 % 02/18/23 12:38 Baso % (Auto) 0.6 % 02/18/23 12:38 Neut # (Auto) 4.41 10^3/uL (1.8-7.7) 02/18/23 12:38 Lymph # (Auto) 1.4 10^3/uL (0.8-4.8) 02/18/23 12:38 [place] # (Auto) 0.4 10^3/uL (0.2-0.9) 02/18/23 12:38 Eos # (Auto) 0.2 10^3/uL (0.0-0.8) 02/18/23 12:38 Baso # (Auto) 0.0 10^3/uL (0.0-0.1) 02/18/23 12:38 Nucleated RBC % (auto) 0 % 02/18/23 12:38 Nucleated RBCs # 0.0 /100WBC 02/18/23 12:38 Sodium 132 mmol/L (136-145) L 02/18/23 12:38 Potassium 3.9 mmol/L (3.5-5.1) 02/18/23 12:38 Chloride 99 mmol/L (98-107) 02/18/23 12:38 Carbon Dioxide 23 mmol/L (22-29) 02/18/23 12:38 Anion Gap 13.9 (5-19) 02/18/23 12:38 BUN 8 mg/dL (8-23) 02/18/23 12:38 Creatinine 0.8 mg/dL (0.7-1.2) 02/18/23 12:38 GFR Calculation 96.4 mL/min (90-130) 02/18/23 12:38 Glucose 175 mg/dL (65-115) H 02/18/23 12:38 POC Glucose 195 mg/dL (70-110) H 02/18/23 12:42 Calculated Osmolality 277 mOsm/kg (285-295) L 02/18/23 12:38 Calcium 8.5 mg/dL (8.5-10.5) 02/18/23 12:38 Total Bilirubin 0.6 mg/dL (0.15-1.2) 02/18/23 12:38 AST 17 U/L (0-40) 02/18/23 12:38 ALT 14 U/L (0-41) 02/18/23 12:38 Alkaline Phosphatase 93 U/L (40-130) 02/18/23 12:38 Troponin T Baseline 11 ng/L (0-15) 02/18/23 12:38 Troponin T 120 Minute 10.16 ng/L (0-15) 02/18/23 14:33 Delta Troponin T -0.84 ABS# (0-10) L 02/18/23 14:33 Total Protein 6.1 g/dL (6.6-8.7) L 02/18/23 12:38 Albumin 4.2 g/dL (3.5-5.2) 02/18/23 12:38 Globulin 1.9 g/dL (1.3-4.6) 02/18/23 12:38 Urine Color Yellow (Yellow) 02/18/23 13:12 Urine Appearance Sl hazy (CLEAR) A 02/18/23 13:12 Urine pH 7 (5-7) 02/18/23 13:12 Ur Specific [place] 1.010 (1.005-1.030) 02/18/23 13:12 Urine Protein Neg (Negative) 02/18/23 13:12 Urine Glucose (UA) 4+ (Normal) H 02/18/23 13:12 Urine Ketones 1+ (Negative) H 02/18/23 13:12 Urine Blood Neg (Negative) 02/18/23 13:12 Urine Nitrate Negative (Negative) 02/18/23 13:12 Urine Bilirubin Neg (Negative) 02/18/23 13:12 Urine Urobilinogen Norm mg/dL (Negative) 02/18/23 13:12 Ur Leukocyte Esterase Trace (Negative) H 02/18/23 13:12 Urine RBC None /hpf (0-2) 02/18/23 13:12 Urine WBC 15-25 /hpf (0-5) H 02/18/23 13:12 Ur Squamous Epith Cells None /hpf (0-5) 02/18/23 13:12 Amorphous Sediment 1+ /hpf 02/18/23 13:12 Urine Bacteria 3+ /hpf (NONE) H 02/18/23 13:12 Serum Ketones Negative (Negative) 02/18/23 12:38 Discharge Plan Discharge Patient Disposition: Home Clinical Impression: Diabetes, Hypertension, Cystitis Condition: Stable Prescriptions: New Macrobid 100 mg capsule 100 mg PO BID 7 Days Qty: 14 0RF Rx Instructions: must administer with a meal/food Continued omeprazole 20 mg capsule,delayed release(DR/EC) 20 mg PO QAM aspirin [Adult Aspirin Regimen] 81 mg tablet,delayed release (DR/EC) 81 mg PO DAILY Hold Instructions: Resume on 03/27/21. pioglitazone 15 mg tablet 15 mg PO DAILY pregabalin [Lyrica] 150 mg capsule 150 mg PO TID tamsulosin 0.4 mg capsule 0.8 mg PO DAILY Qty: 60 3RF alogliptin 25 mg tablet 25 mg PO DAILY ropinirole 1 mg Tablet See Rx Instructions .ROUTE .COMPLEX Rx Instructions: 3 mg orally qam and 7mg qpm gabapentin 300 mg Tablet Extended Release 24 Hr 600 mg PO BID Held pramipexole 0.125 mg tablet 0.125 mg PO DAILY carbidopa-levodopa 25-100 mg tablet 2 tab PO BEDTIME polyvinyl alcohol [Artificial Tears (polyvin alc)] 1.4 % drops 1 drp ophthalmic (eye) DAILY cholecalciferol (vitamin D3) 25 mcg (1,000 unit) capsule 25 mcg PO DAILY cyanocobalamin (vitamin B-12) 1,000 mcg tablet 1,000 mcg PO DAILY potassium chloride 20 mEq tablet extended release 20 meq PO DAILY furosemide 40 mg tablet 60 mg PO DAILY Qty: 90 3RF nitroglycerin 2.5 mg capsule, extended release 2.5 mg PO BID Qty: 60 5RF Rx Instructions: allow nitrate-free interval of approx. 10-12 hrs per 24-hour period nitroglycerin 0.4 mg tablet, sublingual 0.4 mg sublingual Q5M PRN (Reason: chest pain) Qty: 50 3RF Rx Instructions: until response; do not exceed 3 doses per episode hydrocodone-acetaminophen 5-325 mg tablet 1 tab PO Q6H PRN (Reason: Renal colic) 3 Days Qty: 12 0RF metoprolol tartrate 25 mg tablet 25 mg PO BID Qty: 180 3RF spironolactone 25 mg tablet 25 mg PO DAILY Qty: 30 0RF Rx Instructions: MUST have follow-up for further refills methocarbamol 750 mg tablet 750 mg PO Q8H PRN (Reason: Back muscle spasms and pain) Qty: 20 0RF Hold Instructions: Resume on 02/20/23. celecoxib [Celebrex] 100 mg capsule 100 mg PO BID PRN (Reason: pain) Qty: 30 0RF Hold Instructions: Resume on 02/20/23. No Action (DME) Costum Functional Molded Orthotics See Rx Instructions .Route .MEDSUPPLY Qty: 1 0RF Rx Instructions: As directed J P & O carbamazepine [Tegretol XR] 200 mg Tablet Extended Release 12 Hr 200 mg PO BID Discharge Orders: Discharge ED (Routine); Ordered 02/18/23 Ordered By: Vishnu Tukr Referrals: Cynthia Rowe MD [Primary Care Provider] - Discharge Diet: Usual diet Discharge Activity: Limit activity as instructed Patient Instructions: Opioid Safety, Pain Management Activity Restrictions/Additional Instructions: You were seen today for concerns of elevated blood sugar. Your blood sugar in the emergency room was 175. I recommend that you resume the medications that we listed your other medications which she reported to have not been taking continue to hold for now follow-up in the primary care doctor's office as soon as you are able and they can go over your medications and reviewed the other medicines which they may recommend that you resume. They can also help arrange for home health to help you manage your medicines if needed. Coding Level of Care Code ED Receivable Executive for Obed Beck
[2023-02-18 12:51] LABS: Basophils % 0.6 %; Eosinophils # 0.2 10^3/uL (0.0-0.8); Eosinophils % 2.8 %; Hemoglobin 15.3 g/dL (11.7-16.6); Lymphocytes # 1.4 10^3/uL (0.8-4.8); Lymphocytes % 21.7 %; Mean Corpuscular HGB Conc 32.6 g/dL (30.0-36.0); Mean Corpuscular Hemoglobin 31.8 pg (28.0-34.0); Mean Corpuscular Volume 97.7 fl (80-94); Mean Platelet Volume 11.9 fL (7.4-10.4); Monocytes # 0.4 10^3/uL (0.2-0.9); Monocytes % 6.6 %; Neutrophils # 4.41 10^3/uL (1.8-7.7); Nucleated Red Blood Cells % 0 %; Platelet Count 132 10^3/cmm (130-400); Red Blood Count 4.81 10^6/uL (4.1-5.3); Red Cell Distribution Width 12.1 % (12.1-15.1); White Blood Count 6.5 10^3/uL (4.0-10.0)
[2023-02-18 13:03] LABS: Ketone (Acetest) Serum Negative (Negative)
--- NOTE | 2023-02-18 13:13 | PC.PHAR ---
PT HAS 24 MEDICATIONS ON HIS HOME MED LIST-PT STS HE ONLY TAKES ROPINIROLE 1 MG 3MG AM AND 7MG PM AND GABAPENTIN 300 MG 600MG BID- PT STS HE DOESN'T TAKE ANY OF THE OTHERS RIGHT NOW BECAUSE HE DOESN'T LIKE PILLS- DR GRANADOS SAID TO LEAVE THE MEDICATIONS IN THE FILE AND PUT LAST TAKEN UNKNOWN
--- NOTE | 2023-02-18 13:15 | PC.NURSE ---
PT REQUESTED TO SELF CATH BECAUSE THAT IS WHAT HE DOES AT HOME. PHYSICIAN NOTIFIED AND OKAYED. PT GIVEN 12FR COUDE CATHETER. PT VOIDED APPROX 600ML STRONG SMELLING URINE.
[2023-02-18 13:17] LABS: Troponin(5th) Baseline 11 ng/L (0-15)
[2023-02-18 13:21] LABS: Alanine Aminotransferase 14 U/L (0-41); Albumin Level 4.2 g/dL (3.5-5.2); Alkaline Phosphatase 93 U/L (40-130); Anion Gap 13.9 (5-19); Aspartate Amino Transferase 17 U/L (0-40); Blood Urea Nitrogen 8 mg/dL (8-23); Calcium 8.5 mg/dL (8.5-10.5); Carbon Dioxide 23 mmol/L (22-29); Chloride 99 mmol/L (98-107); Globulin 1.9 g/dL (1.3-4.6); Glomerular Filtration Rate 96.4 mL/min (90-130); Glucose 175 mg/dL (65-115); Osmolality Calculated 277 mOsm/kg (285-295); Potassium 3.9 mmol/L (3.5-5.1); Sodium 132 mmol/L (136-145); Total Bilirubin 0.6 mg/dL (0.15-1.2); Total Protein 6.1 g/dL (6.6-8.7)
[2023-02-18 13:54] LABS: Urine Appearance SL Hazy (CLEAR); Urine Color Yellow (Yellow); pH Urine 7 (5-7)
[2023-02-18 13:55] LABS: Add Urine Microscopic? YES; Bilirubin Urine Neg (Negative); Blood Urine Neg (Negative); Glucose Urine UA 4+ (Normal); Ketones Urine 1+ (Negative); Leukocyte Esterase Urine Trace (Negative); Nitrate Urine Negative (Negative); Protein Urine Neg (Negative); Urobilinogen Urine Norm (Negative)
[2023-02-18 13:56] LABS: Add Urine Culture? Yes; Amorphous Sediment Urine 1+ /hpf; Bacteria Urine 3+ /hpf; WBC Urine 15-25 /hpf (0-5)
--- NOTE | 2023-02-18 14:15 | ECG_ITS ---
[facility] Test Date: 2023-02-18 Pat Name: Turner Steven Department: Room: Gender: Male Cancer Genetic Counselor: : 1955 Requested By: Vishnu Kingston Order Number: [id number] Chris MD: Poppy Barrera M.D. Measurements Intervals [place] Rate: 71 P: 42 IN: 162 QRS: -57 QRSD: 92 T: 29 QT: 378 QTc: 413 Interpretive Statements SINUS RHYTHM LOW QRS VOLTAGE IN PRECORDIAL LEADS [QRS DEFLECTION < 1.0 mV IN CHEST LEADS] LEFT ANTERIOR FASCICULAR BLOCK [QRS AXIS <= -45, QR IN I, RS IN II] POSSIBLE ANTERIOR MYOCARDIAL INFARCTION , OF INDETERMINATE AGE [30 ms Q WAVE IN V3/V4, OR R < 0.2 mV IN V4] Compared to ECG 02/18/2023 12:18:38 Myocardial infarct finding now present Electronically Signed On 02-18-2023 15:37:59 CDT by Poppy Barrera M.D. [email or web address]
[2023-02-18 15:01] LABS: Troponin 5 2HR 10.16 ng/L (0-15)
[2023-02-18] MEDS: ropinirole 1 mg Tablet PO (15:05)
[2023-02-18 15:30] LABS: Troponin 5 2HR Delta -0.84 ABS# (0-10)
[2023-02-18] MEDS: acetaminophen 325 mg Tablet 650 MG PO (15:37)
== END 2023-02-18 15:45 | disposition home or self-care (01) ==
PROVIDERS: Emergency Provider Family Medicine; PCP Family Medicine
DX: E11.9 Type 2 diabetes mellitus without complications (principal); N30.90 Cystitis, unspecified without hematuria; Z79.82 Long term (current) use of aspirin; I25.10 Atherosclerotic heart disease of native coronary artery without angina pectoris; I11.0 Hypertensive heart disease with heart failure; I50.9 Heart failure, unspecified; E78.5 Hyperlipidemia, unspecified
CPT/HCPCS: 36416; 71045; 80053; 81001; 82009; 82962; 84484; 85025; 87077; 87086; 87186; 93005; 99285

== ENCOUNTER → 2023-03-07 09:45 | Outpatient (BNVA) | payer OTHER, SELFPAY | PROVIDERS: PCP Family Medicine; Visit Provider Podiatrist Foot & Ankle Surgery | DX: E11.21 Type 2 diabetes mellitus with diabetic nephropathy (principal); L60.3 Nail dystrophy; M21.6X1 Other acquired deformities of right foot; E11.42 Type 2 diabetes mellitus with diabetic polyneuropathy; M20.41 Other hammer toe(s) (acquired), right foot; M20.42 Other hammer toe(s) (acquired), left foot; M77.40 Metatarsalgia, unspecified foot; L84 Corns and callosities; G62.9 Polyneuropathy, unspecified; E11.22 Type 2 diabetes mellitus with diabetic chronic kidney disease | CPT/HCPCS: 11056; 11721 ==

== ENCOUNTER 2023-03-20 14:05 | Emergency (ER) | payer OTHER, SELFPAY ==
[2023-03-20 14:07] VITALS: BP 119/79; PULSE 93; TEMP 37.1; O2SAT 98; BMI 29.2
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
[2023-03-20 14:14] VITALS: BP 119/79
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
[2023-03-20] MEDS: morphine 4 mg/mL SDV 1 mL IM (15:15)
== END 2023-03-20 15:39 | disposition home or self-care (01) ==
PROVIDERS: Emergency Provider Physician Assistant; PCP Family Medicine
DX: S39.012A Strain of muscle, fascia and tendon of lower back, initial encounter (principal); S16.1XXA Strain of muscle, fascia and tendon at neck level, initial encounter; E11.40 Type 2 diabetes mellitus with diabetic neuropathy, unspecified; I25.10 Atherosclerotic heart disease of native coronary artery without angina pectoris; I25.2 Old myocardial infarction; I11.0 Hypertensive heart disease with heart failure; I50.9 Heart failure, unspecified; E78.5 Hyperlipidemia, unspecified; E03.9 Hypothyroidism, unspecified; Z79.82 Long term (current) use of aspirin; Z79.899 Other long term (current) drug therapy; V89.2XXA Person injured in unspecified motor-vehicle accident, traffic, initial encounter
CPT/HCPCS: 70450; 72125; 72131; 96372; 99284; J2270

== ENCOUNTER 2023-03-23 11:06 | Emergency (ER) | payer OTHER, SELFPAY ==
[2023-03-23 11:09] VITALS: BP 136/79; PULSE 96; RESP 18; TEMP 36.6; O2SAT 97
[2023-03-23 11:28] VITALS: BP 127/82; PULSE 90; RESP 16; O2SAT 98
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
[2023-03-23] MEDS: ketorolac 30 mg/mL INJ IVP (11:51)
[2023-03-23 11:52] LABS: Basophils # 0.1 10^3/uL (0.0-0.1); Basophils % 0.8 %; Eosinophils # 0.3 10^3/uL (0.0-0.8); Eosinophils % 3.4 %; Hematocrit 46.3 % (42.0-52.0); Hemoglobin 15.7 g/dL (11.7-16.6); Lymphocytes # 1.5 10^3/uL (0.8-4.8); Mean Corpuscular HGB Conc 33.9 g/dL (30.0-36.0); Mean Corpuscular Hemoglobin 31.8 pg (28.0-34.0); Mean Corpuscular Volume 93.9 fl (80-94); Mean Platelet Volume 9.9 fL (7.4-10.4); Monocytes # 0.5 10^3/uL (0.2-0.9); Monocytes % 6.9 %; Neutrophils # 5.06 10^3/uL (1.8-7.7); Neutrophils % 68.5 %; Nucleated Red Blood Cells % 0 %; Platelet Count 215 10^3/cmm (130-400); Red Blood Count 4.93 10^6/uL (4.1-5.3); Red Cell Distribution Width 12.9 % (12.1-15.1); White Blood Count 7.4 10^3/uL (4.0-10.0)
[2023-03-23 12:09] LABS: Alanine Aminotransferase 12 U/L (0-41); Albumin Level 4.2 g/dL (3.5-5.2); Alkaline Phosphatase 114 U/L (40-130); Anion Gap 13.9 (5-19); Aspartate Amino Transferase 17 U/L (0-40); Blood Urea Nitrogen 13 mg/dL (8-23); Calcium 8.8 mg/dL (8.5-10.5); Carbon Dioxide 26 mmol/L (22-29); Chloride 100 mmol/L (98-107); Globulin 2.7 g/dL (1.3-4.6); Glomerular Filtration Rate 84.2 mL/min (90-130); Glucose 160 mg/dL (65-115); Osmolality Calculated 286 mOsm/kg (285-295); Potassium 3.9 mmol/L (3.5-5.1); Sodium 136 mmol/L (136-145); Total Bilirubin 0.3 mg/dL (0.15-1.2); Total Protein 6.9 g/dL (6.6-8.7)
[2023-03-23] MEDS: iohexol 350 mg/mL 500 mL Btl (per mL) IV (12:22)
[2023-03-23 13:24] VITALS: BP 130/79; PULSE 87; RESP 16; O2SAT 95
[2023-03-23 13:47] LABS: Add Urine Microscopic? YES; Bilirubin Urine Neg (Negative); Blood Urine Neg (Negative); Glucose Urine UA 4+ (Normal); Ketones Urine Negative (Negative); Leukocyte Esterase Urine 1+ (Negative); Nitrate Urine Negative (Negative); Protein Urine Neg (Negative); Urine Appearance SL Hazy (CLEAR); Urine Color Light yellow (Yellow); Urobilinogen Urine Norm (Negative); pH Urine 5 (5-7)
[2023-03-23 13:48] LABS: RBC Urine 0-4 /hpf (0-2)
[2023-03-23 13:49] LABS: Add Urine Culture? No
== END 2023-03-23 13:43 | disposition home or self-care (01) ==
PROVIDERS: Emergency Provider Family Medicine; PCP Family Medicine
DX: K59.00 Constipation, unspecified (principal)
CPT/HCPCS: 74177; 80053; 81001; 85025; 96374; 99285; J1885; Q9967

== ENCOUNTER 2023-10-23 00:30 | Emergency (ER) | payer OTHER, SELFPAY ==
[2023-10-23 00:53] VITALS: BP 121/75; PULSE 73; RESP 17; TEMP 36.6; O2SAT 97; BMI 28.2
[2023-10-23 01:14] LABS: Glucose Point of Care 322 mg/dL (70-110)
[2023-10-23 01:44] VITALS: BP 120/75; PULSE 83; RESP 18; O2SAT 98
[2023-10-23 01:56] LABS: Glucose Point of Care 352 mg/dL (70-110)
[2023-10-23] MEDS: insulin regular-human 100 units/1 mL 8 UNIT IVP (02:05)
[2023-10-23 02:10] VITALS: BP 126/84; PULSE 84; RESP 18; O2SAT 96
[2023-10-23 02:52] LABS: Glucose Point of Care 184 mg/dL (70-110)
[2023-10-23 03:19] VITALS: BP 126/91; PULSE 90; RESP 18; O2SAT 98
--- NOTE | 2023-10-23 05:08 | ED_ITS ---
HPI - General Adult General: Chief complaint: General Medical Stated complaint: High Blood Sugar Time Seen by Provider: 10/23/23 01:53 History of Present Illness: 68-year-old male who is a type II diabet ic. He is on Jardiance only, which she admits he only takes on occasion. He presents with a high blood sugar of 540 at home after [place]. He was evidently told to come to the emergency department. Paramedics checked his sugar again, and it was in the 300s. It is 352 here he is asymptomatic. Associated symptoms: Deny chest pain, confusion, dyspnea, headache(s), nausea, rash or vomiting Review of Systems Const: Denies: fever(s) or chills Eyes: Denies: change in vision Card: Denies: chest pain Resp: Denies: dyspnea GI: Denies: abdominal pain, nausea, vomiting, diarrhea or hematochezia Skin/Breast: Denies: rash Neuro: Denies: headache(s), weakness in extremities, dizziness or confusion PFS ED PFSH: Medical History Gross hematuria Atherosclerosis of coronary artery Myocardial bridge Heart failure Intervertebral disc syndrome Migraine Degenerative arthritis of cervical spine Benign prostatic hyperplasia Conjunctival hemorrhage Edema Hypothyroidism Low back pain Diabetic neuropathy Vitamin B12 deficiency anemia Urinary retention Colon polyp Erectile dysfunction Incomplete bladder emptying CHF (congestive heart failure) Major depressive disorder ROMEO (obstructive sleep apnea) Peripheral neuropathy GERD (gastroesophageal reflux disease) Hyperlipidemia Non-insulin dependent type 2 diabetes mellitus Hypertension Diabetes Restless leg Surgical History History of colonoscopy with polypectomy History of esophagogastroduodenoscopy (EGD) Hx of umbilical hernia repair History of appendectomy Family History Father , AT AGE 77 ALS (amyotrophic lateral sclerosis) Lung disease Brother ALS (amyotrophic lateral sclerosis) Grandmother Cancer Diabetes Grandfather Cancer Son Cancer Mother , AT AGE 83 Dementia Social History Smoking and tobacco/nicotine status: never used tobacco/nicotine Alcohol intake: never Substance/Drug Use: current Marital status: Current occupational status: retired Physical Exam Const: COMMON NORMALS: no acute distress GENERAL APPEARANCE: cooperative; not ill appearing and not frail appearing HENMT: COMMON NORMALS: normocephalic, atraumatic and Normal external nose present HEAD & SCALP: normocephalic and atraumatic FACE & SINUS: normal facial exam and face symmetric NOSE: Normal external nose present Eye: COMMON NORMALS: Equal, round and reactive pupils present and EOMs intact bilaterally PUPIL: Yes Equal, round and reactive pupils present Neck/C-Spine: GENERAL: Yes trachea midline Chest: CHEST: Yes Symmetrical chest wall rise Resp: COMMON NORMALS: normal respiratory effort, No retractions, No use of accessory muscles and clear to auscultation bilaterally AUSCULTATION: clear to auscultation bilaterally Cardio: COMMON NORMALS: regular rate and regular rhythm RATE: regular rate RHYTHM: regular rhythm GI: COMMON NORMALS: Normal to inspection, nondistended, normoactive bowel sounds present Extremity: COMMON NORMALS: no pedal edema Neuro: DARREN COMA SCALE: document GCS findings Darren coma scale eye opening: Spontaneous [place] coma scale verbal response: Orientated [place] coma scale motor response: Obey commands [place] coma scale total score: 15 SENSORY EXAM: Yes extremities (intact) Psych: COMMON NORMALS: speech normal SPEECH: Yes normal speech Skin: COMMON NORMALS: no rashes or lesions noted GENERAL SKIN EXAM: no rashes or lesions noted Course Vital Signs: Vital signs: Vital Signs Temperature 97.8 F 10/23/23 00:53 Pulse Rate 90 10/23/23 03:19 Respiratory Rate 18 10/23/23 03:19 Blood Pressure 126/91 10/23/23 03:19 Pulse Oximetry 98 10/23/23 03:19 Oxygen Delivery Me thod Room Air 10/23/23 02:10 [facility] - General Adult Medical Decision Making Patient was given 8 units of IV insulin. Repeat glucose is 184. He will be sent home on a sliding scale of insulin. This was shown to him, and explained to him. Prescription was written for lispro subcutaneous pen. He will follow- up with his doctor next week. He is encouraged to take his Jardiance relig iously. Lab Data Laboratory Results POC Glucose 184 mg/dL (70-110) H 10/23/23 02:48 No radiology studies performed this visit Discharge Plan Discharge Patient Disposition: Home Clinical Impression: Acute hyperglycemia Condition: Stable Prescriptions: New insulin lispro-aabc 100 unit/mL insulin pen See Rx Instructions .ROUTE .COMPLEX Qty: 15 0RF Rx Instructions: follow the sliding scale given to you for insulin usage No Action pramipexole 0.125 mg tablet 0.125 mg PO DAILY (DME) Costum Functional Molded Orthotics See Rx Instructions .Route .MEDSUPPLY Qty: 1 0RF Rx Instructions: As directed [facility] carbidopa-levodopa 25-100 mg tablet 2 tab PO BEDTIME omeprazole 20 mg capsule,delayed release(DR/EC) 20 mg PO QAM polyvinyl alcohol [Artificial Tears (polyvin alc)] 1.4 % drops 1 drp ophthalmic (eye) DAILY aspirin [Adult Aspirin Regimen] 81 mg tablet,delayed release (DR/EC) 81 mg PO DAILY Hold Instructions: Resume on 03/27/21. pioglitazone 15 mg tablet 15 mg PO DAILY cholecalciferol (vitamin D3) 25 mcg (1,000 unit) capsule 25 mcg PO DAILY cyanocobalamin (vitamin B-12) 1,000 mcg tablet 1,000 mcg PO DAILY pregabalin [Lyrica] 150 mg capsule 150 mg PO TID potassium chloride 20 mEq tablet extended release 20 meq PO DAILY tamsulosin 0.4 mg capsule 0.8 mg PO DAILY Qty: 60 3RF alogliptin 25 mg tablet 25 mg PO DAILY furosemide 40 mg tablet 60 mg PO DAILY Qty: 90 3RF mupirocin 2 % ointment 1 applic topical BID Qty: 22 1RF Rx Instructions: Apply to affected area twice a day, as needed nitroglycerin 2.5 mg capsule, extended release 2.5 mg PO BID Qty: 60 5RF Rx Instructions: allow nitrate-free interval of approx. 10-12 hrs per 24-hour period nitroglycerin 0.4 mg tablet, sublingual 0.4 mg sublingual Q5M PRN (Reason: chest pain) Qty: 50 3RF Rx Instructions: until response; do not exceed 3 doses per episode hydrocodone-acetaminophen 5-325 mg tablet 1 tab PO Q6H PRN (Reason: Renal colic) 3 Days Qty: 12 0RF metoprolol tartrate 25 mg tablet 25 mg PO BID Qty: 180 3RF spironolactone 25 mg tablet 25 mg PO DAILY Qty: 30 0RF Rx Instructions: MUST have follow-up for further refills carbamazepine [Tegretol XR] 200 mg Tablet Extended Release 12 Hr 200 mg PO BID celecoxib [Celebrex] 100 mg capsule 100 mg PO BID PRN (Reason: pain) Qty: 30 0RF Hold Instructions: Resume on 02/20/23. cyclobenzaprine 10 mg tablet 10 mg PO TID Qty: 14 0RF ropinirole 1 mg Tablet See Rx Instructions .ROUTE .COMPLEX Rx Instructions: 3 mg orally qam and 7mg qpm gabapentin 300 mg Tablet Extended Release 24 Hr 600 mg PO BID Discharge Orders: Discharge ED (Routine); Ordered 10/23/23 Ordered By: Christopher Lemus Referrals: Susanna Dimas NP [Primary Care Provider] - 4-7 days Patient Instructions: Diabetic Hyperglycemia (ED), Opioid Safety, Pain Management Activity Restrictions/Additional Instructions: Check your blood sugars often, 30 minutes prior to meals, and before bedtime. Use the insulin you were prescribed in accordance with the sliding scale provided to you. Continue your Jardiance daily as directed. See your doctor next week. Log of how much insulin you are having to use daily, for their purposes. Coding Level of Care Code ED Diabetologist for Obed Beck
--- NOTE | 2023-10-24 07:16 | PC.SOCIAL ---
Records [facility] to [facility].
== END 2023-10-23 03:16 | disposition home or self-care (01) ==
PROVIDERS: Emergency Provider Emergency Medicine; PCP Nurse Practitioner Family
DX: E11.65 Type 2 diabetes mellitus with hyperglycemia (principal); Z79.82 Long term (current) use of aspirin; I25.10 Atherosclerotic heart disease of native coronary artery without angina pectoris; E11.40 Type 2 diabetes mellitus with diabetic neuropathy, unspecified; I11.0 Hypertensive heart disease with heart failure; I50.9 Heart failure, unspecified; E78.5 Hyperlipidemia, unspecified
CPT/HCPCS: 36416; 82962; 96374; 99284; J1815